=== PATIENT | female | born 1945 | race Caucasian/White ===

== ENCOUNTER 2016-05-28 19:42 | Emergency (ER) | payer MEDICARE, MEDICAID ==
[~2016-05-28] VITALS: Ht 162.6 cm; Wt 40.0 kg
[~2016-05-28 19:42] MED LIST: ASPIRIN EC325 MG PO; ATORVASTATIN CA40 MG PO; DOXYCYCL HYC100 M4 PO; FLEXERIL PO; NO HOME MEDS; ULTRAM50 M1 PO
[2016-05-28] MEDS ORDERED: FLEXERIL PO (20:26)
[2016-05-28] MEDS ORDERED: LORTAB 10-325 M1 TAB PO (20:26)
[2016-05-28 20:50] VITALS: BP 132/52
[2016-05-28] MEDS ORDERED: WELLBUTRIN SR150 MG PO (21:19)
[2016-05-28] MEDS ORDERED: STIOLTO RESPIMA1 AER IN (21:19)
== END 2016-05-28 20:50 | disposition home or self-care (01) ==
LOC: ED 19:42
DX: S16.1XXA Strain of muscle, fascia and tendon at neck level, initial encounter (principal); S33.5XXA Sprain of ligaments of lumbar spine, initial encounter; X58.XXXA Exposure to other specified factors, initial encounter

== ENCOUNTER 2017-03-04 18:27 | Emergency (ER) | payer MEDICARE, MEDICAID ==
[~2017-03-04] VITALS: Ht 162.6 cm; Wt 50.0 kg
[~2017-03-04 18:27] MED LIST changes: +LORTAB 10-325 M1 TAB PO; +STIOLTO RESPIMA1 AER IN; +WELLBUTRIN SR150 MG PO
[2017-03-04 18:33] VITALS: BP 108/67
== END 2017-03-04 19:32 | disposition left against medical advice (07) ==
LOC: ED 18:27 → LWOBS 19:32
DX: Z91.19 Patient's noncompliance with other medical treatment and regimen (principal)

== ENCOUNTER 2017-04-23 09:42 | Day surgery (SDC) | payer MEDICARE, MEDICAID ==
[~2017-04-23] VITALS: Ht 162.6 cm; Wt 47.6 kg
[~2017-04-23 09:42] MED LIST changes: +ALENDRONATE70 MG PO; +ASPIRIN 81 LOW81 MG PO; +BRIMONIDINE0.2 % OD; +BUSPIRONE5 MG PO; +OMEGA 31000 MG PO; +PROAIR HFA108 MCG/AC; +SERTRALINE100 MG PO; +STIOLTO RESPIMA1 AER; +TRAMADOL HYDROC50 MG PO; +VALIUM2 MG PO; +VITAMIN B 12100 MCG PO; +VITAMIN C1000 MG PO
[2017-04-23 12:35] VITALS: BP 119/57
== END 2017-04-23 12:50 | disposition home or self-care (01) ==
LOC: ENDO 09:42 → ORM 12:00 → ENDO 12:00 → ORM 13:45 → ENDO 13:45 → ORM 14:00
PROVIDERS: ATTEND Internal Medicine Gastroenterology
PROC: 0DBE8ZX Excision of Large Intestine, Via Natural or Artificial Opening Endoscopic, Diagnostic (ICD-10-PCS; principal; 2017-04-23)
DX: K52.831 Collagenous colitis (principal); K64.4 Residual hemorrhoidal skin tags; K64.8 Other hemorrhoids; K57.30 Diverticulosis of large intestine without perforation or abscess without bleeding; K55.20 Angiodysplasia of colon without hemorrhage; J44.9 Chronic obstructive pulmonary disease, unspecified; F32.9 Major depressive disorder, single episode, unspecified; Z86.73 Personal history of transient ischemic attack (TIA), and cerebral infarction without residual deficits

== ENCOUNTER 2017-07-26 16:00 | Emergency (ER) | payer MEDICARE, MEDICAID ==
[~2017-07-26] VITALS: Ht 162.6 cm; Wt 46.0 kg
[~2017-07-26 16:00] MED LIST changes: +BACTRIM DS1 TAB PO; +BACTROBAN TOP; +DOXYCYCLINE100 MG PO
[2017-07-26 16:43] VITALS: BP 107/66
== END 2017-07-26 16:43 | disposition home or self-care (01) ==
LOC: ED 16:00
DX: S51.812D Laceration without foreign body of left forearm, subsequent encounter (principal)

== ENCOUNTER 2018-04-29 14:24 | Emergency (ER) | payer MEDICARE, MEDICAID ==
[~2018-04-29] VITALS: Ht 162.6 cm; Wt 50.0 kg
[2018-04-29 15:43] LABS: BARBITURATES NEGATIVE (NEGATIVE); COCAINE NEGATIVE (NEGATIVE); METHADONE NEGATIVE (NEGATIVE); OXCYCODONE NEGATIVE (NEGATIVE); TETRAHYDROCANNABIONOL NEGATIVE (NEGATIVE); TRICYLIC ANTIDEPRESSANTS NEGATIVE (NEGATIVE)
== END 2018-04-29 16:42 | disposition home or self-care (01) ==
LOC: ED 14:24
PROVIDERS: Emergency Medicine
DX: F10.129 Alcohol abuse with intoxication, unspecified (principal); S00.93XA Contusion of unspecified part of head, initial encounter; I65.21 Occlusion and stenosis of right carotid artery; H54.61 Unqualified visual loss, right eye, normal vision left eye; F17.210 Nicotine dependence, cigarettes, uncomplicated; W19.XXXA Unspecified fall, initial encounter; Y92.009 Unspecified place in unspecified non-institutional (private) residence as the place of occurrence of the external cause; Z86.73 Personal history of transient ischemic attack (TIA), and cerebral infarction without residual deficits

== ENCOUNTER 2019-09-07 10:26 | Emergency (ER) | payer MEDICARE, MEDICAID ==
[~2019-09-07] VITALS: Ht 162.6 cm; Wt 45.0 kg
[2019-09-07 11:23] LABS: URINE BILIRUBIN - DIPSTICK NEGATIVE (NEGATIVE); URINE BLOOD DIPSTICK NEGATIVE (NEGATIVE); URINE COLOR YELLOW; URINE GLUCOSE - DIPSTICK NEGATIVE (NEGATIVE); URINE KETONE NEGATIVE (NEGATIVE); URINE NITRITE - DIPSTICK NEGATIVE (Negative); URINE PH 6.5 (4.5-8.0); URINE PROTEIN - DIPSTICK NEGATIVE (NEG-TRACE); URINE UROBILINOGEN - DIPSTICK 0.2 E.U./dL (0.2)
[2019-09-07 11:24] LABS: HEMATOCRIT 38.8 % (37.0-47.0); HEMOGLOBIN 12.9 g/dl (12.0-16.0); IMMATURE GRANULOCYTES 0.2 % (0.0-5.0); MEAN CELL VOLUME 98.2 fL CALC (80.0-100.0); MEAN CORPUSCULAR HGB 32.7 pG CALC (26.0-32.0); MEAN CORPUSCULAR HGB CONC 33.2 g/dL CAL (32.0-36.0); NEUT# 5.49 thou/uL (2.00-7.15); RED BLOOD COUNT 3.95 mill/uL (4.20-5.60); RED CELL DISTRI WIDTH 12.8 % (11.5-15.5)
[2019-09-07 11:35] LABS: URINE LEUK ESTERASE SMALL (NEGATIVE)
[2019-09-07 11:39] LABS: ALBUMIN 4.2 g/dL (3.2-5.0); ALKALINE PHOSPHATASE 100 u/l (38-126); ANION GAP 16 (6-22 (CALC)); BILIRUBIN, TOTAL 0.3 mg/dL (0.0-1.4); BUN 9 mg/dL (8-23); BUN/CREATININE RATIO 14 (12-20 (CALC)); CARBON DIOXIDE 21 mmol/l (22-30); CHLORIDE 101 mmol/l (95-108); CREATININE 0.7 mg/dL (0.5-1.0); GFR > 60 ML/MIN (>=60 (CALC)); GFR FOR AFR.AMER. > 60 ML/MIN (>=60 (CALC)); SGOT/AST 26 u/l (9-36); SODIUM 135 mmol/l (137-146)
[2019-09-07 11:40] LABS: POTASSIUM 3.2 mmol/l (3.5-5.1)
[2019-09-07 12:05] LABS: URINE BACTERIA RARE hpf; URINE SQUAMOUS EPITHELIAL CELL FEW EPI/hpf (0-FEW)
[2019-09-07] MEDS ORDERED: K-TAB20 MEQ PO (12:35)
[2019-09-07] MEDS ORDERED: NITROFURANTN100 M2 PO (12:35)
[2019-09-07 12:50] VITALS: BP 102/54
== END 2019-09-07 12:55 | disposition home or self-care (01) ==
LOC: ED 10:26
PROVIDERS: Family Medicine
DX: R56.9 Unspecified convulsions (principal); E87.6 Hypokalemia; N39.0 Urinary tract infection, site not specified; H54.61 Unqualified visual loss, right eye, normal vision left eye; F17.210 Nicotine dependence, cigarettes, uncomplicated; Z86.73 Personal history of transient ischemic attack (TIA), and cerebral infarction without residual deficits

== ENCOUNTER 2020-04-05 14:14 | Emergency (ER) | payer MEDICARE, MEDICAID ==
[~2020-04-05] VITALS: Ht 162.6 cm; Wt 44.5 kg
[~2020-04-05 14:14] MED LIST changes: +K-TAB20 MEQ PO; +NITROFURANTN100 M2 PO; -PROAIR HFA108 MCG/AC; +PROAIR HFA108 MCG/AC IN; -STIOLTO RESPIMA1 AER
[2020-04-05 15:15] LABS: GFR > 60 ML/MIN (>=60 (CALC)); GFR FOR AFR.AMER. > 60 ML/MIN (>=60 (CALC))
[2020-04-05 15:17] LABS: HEMOGLOBIN 12.4 g/dl (12.0-16.0); IMMATURE GRANULOCYTES 0.6 % (0.0-5.0); MEAN CELL VOLUME 98.4 fL CALC (80.0-100.0); MEAN CORPUSCULAR HGB CONC 33.5 g/dL CAL (32.0-36.0); NEUT# 5.71 thou/uL (2.00-7.15); RED BLOOD COUNT 3.76 mill/uL (4.20-5.60); RED CELL DISTRI WIDTH 12.5 % (11.5-15.5)
[2020-04-05 15:32] LABS: ANION GAP 12 (6-22 (CALC)); BUN 12 mg/dL (8-23); BUN/CREATININE RATIO 15 (12-20 (CALC)); CARBON DIOXIDE 23 mmol/l (22-30); CHLORIDE 97 mmol/l (95-108); CREATININE 0.8 mg/dL (0.5-1.0); GFR > 60 ML/MIN (>=60 (CALC)); GFR FOR AFR.AMER. > 60 ML/MIN (>=60 (CALC)); POTASSIUM 3.9 mmol/l (3.5-5.1); SODIUM 128 mmol/l (137-146)
[2020-04-05 16:53] VITALS: BP 146/66
[2020-04-05] MEDS ORDERED: DOXYCYCL HYC100 M4 PO (17:42)
== END 2020-04-05 18:00 | disposition left against medical advice (07) ==
LOC: ED 14:14
PROVIDERS: Family Medicine
DX: I70.234 Atherosclerosis of native arteries of right leg with ulceration of heel and midfoot (principal); I70.235 Atherosclerosis of native arteries of right leg with ulceration of other part of foot; L97.519 Non-pressure chronic ulcer of other part of right foot with unspecified severity; L97.419 Non-pressure chronic ulcer of right heel and midfoot with unspecified severity; L03.115 Cellulitis of right lower limb; I70.202 Unspecified atherosclerosis of native arteries of extremities, left leg; H54.61 Unqualified visual loss, right eye, normal vision left eye; F17.200 Nicotine dependence, unspecified, uncomplicated; Z86.73 Personal history of transient ischemic attack (TIA), and cerebral infarction without residual deficits; Z91.19 Patient's noncompliance with other medical treatment and regimen

== ENCOUNTER 2020-04-25 11:13 | Inpatient (IN) | payer MEDICARE, MEDICAID ==
[~2020-04-25] VITALS: Ht 162.6 cm; Wt 40.0 kg
[2020-04-25 12:00] VITALS: BP 124/58
--- NOTE | 2020-04-25 12:45 | NUR ---
PT BROUGHT TO ROOM 2 PER W/C BY SON, PT ALERT/ORIENTED X3, WAS PUSHED TO ROOM FROM AMA WITH OXYGEN AT 4 LITRE PER N/C. PT GOT UP ON OWN AND TRANSFERRED TO BED. IS COLD AND REMAINS COLD ALL THE TIME. NOTICEABLE BRUISING TO EMANUEL UP LEGS /THIGHS/HIPS AND LOWER ABDOMEN, PT STATES HAD STENTS IN BECAUSE OF POOR CIRCULATION 3 DAYS AGO. PLACED PULSE OX OF PTS FINGER AND UNABLE TO OBTAIN A GOOD WAVE, PLACED PULSE OX ACROSS FOREHEAD AND PT HAS 100% ON 4 LITRES. PT STATES SHE IS A 2 PACK A DAY SMOKER AND DRINKS AT LEAST A COUPLE OF BEERS A DAY. ALREADY HAD FIRST COVID SHOT AND WAS SCHEDULED TO GET 2ND SHOT TODAY BUT DID NOT RECEIVE IT. DENIES ANY NEW SOB, OR COUGHING. HAS BEEN SEEN BY DR. DAWSON FOR INFECTION TO RIGHT FOOT, WAS STARTED ON ANTIBIOTICS , PICTURES TAKEN OF FOOT, HAS HEEL SORE AND SORE TO LATERAL SIDE OF RIGHT FOOT, AND AT THE TIP OF SEVERAL TOES. NO DRAINAGE NOTICED. APROX QUARTER SIZE AREAS. PLACED PT ON MONITER, AND EKG AND BLOOD GAS OBTAINED.
[2020-04-25 12:47] LABS: IMMATURE GRANULOCYTES 1.4 % (0.0-5.0); MEAN CELL VOLUME 95.5 fL CALC (80.0-100.0); MEAN CORPUSCULAR HGB 32.2 pG CALC (26.0-32.0); MEAN CORPUSCULAR HGB CONC 33.7 g/dL CAL (32.0-36.0); NEUT# 15.19 thou/uL (2.00-7.15); RED BLOOD COUNT 2.89 mill/uL (4.20-5.60); RED CELL DISTRI WIDTH 12.3 % (11.5-15.5)
--- NOTE | 2020-04-25 12:50 | NUR ---
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
[2020-04-25 12:53] LABS: HEMATOCRIT 27.6 % (37.0-47.0); HEMOGLOBIN 9.3 g/dl (12.0-16.0)
--- NOTE | 2020-04-25 13:25 | NUR ---
PT RESTING QUIETLY ON BED, SEVERAL BLANKETS GIVEN PER REQUEST.
--- NOTE | 2020-04-25 13:52 | NUR ---
ULTRA SOUND HERE FOR TEST. PT ALERT/ORIENTED AND COOPERATIVE.
[2020-04-25 14:00] VITALS: BP 119/65
--- NOTE | 2020-04-25 14:39 | NUR ---
SEE CHART FOR PHOTOS OF FOOT
--- NOTE | 2020-04-25 15:32 | NUR ---
PT SLEEPING AT THIS TIME, NO COMPLAINTS, NO LABORED RESP. SATS REMAIN 100% ON 2 LITRES N/C, CALL LIGHT WITHIN REACH. SIDE RAILS UP.
--- NOTE | 2020-04-25 15:46 | NUR ---
SPOKE WITH PTS DAUGHTER ON THE PHONE , WHO STATES THAT PT HAD APPROX 3 STROKES ABOUT 5 YEARS AGO BACK TO BACK THAT AFFECTED HER RIGHT SIDE MOSTLY HER RIGHT EYE WHICH BECAME BLIND AFTER THE 3RD STROKE. STATES PT IS ON O2 AT HOME 2 L/NC FOR COPD, AND THAT SHE HAD STENTS PLACED ON WEDNESDAY FOR BLOCKAGES IN EMANUEL LEGS. DAUGHTER DENIES THAT PT HAS DEMENTIA OR ANY MENTAL COMPLAINTS BESIDES ANXIETY AND DEPRESSION.
[2020-04-25 16:38] LABS: ALKALINE PHOSPHATASE 119 u/l (38-126); ANION GAP 11 (6-22 (CALC)); BUN 13 mg/dL (8-23); BUN/CREATININE RATIO 24 (12-20 (CALC)); CARBON DIOXIDE 22 mmol/l (22-30); CHLORIDE 97 mmol/l (95-108); CREATININE 0.5 mg/dL (0.5-1.0); GFR > 60 ML/MIN (>=60 (CALC)); GFR FOR AFR.AMER. > 60 ML/MIN (>=60 (CALC)); POTASSIUM 4.3 mmol/l (3.5-5.1); SGOT/AST 34 u/l (9-36); SODIUM 126 mmol/l (137-146); TOTAL PROTEIN 5.9 g/dL (6.3-8.2)
[2020-04-25 16:44] LABS: ALBUMIN 3.3 g/dL (3.2-5.0); BILIRUBIN, TOTAL 0.7 mg/dL (0.0-1.4)
--- NOTE | 2020-04-25 16:53 | NUR ---
UP TO BEDSIDE COMMODE, PT PLACED BACK IN BED WITH TWO MORE WARM BLANKETS GIVEN PER REQUEST
--- NOTE | 2020-04-25 18:22 | NUR ---
PT SITTING UP IN BED EATING DINNER TRAY, STATES SHE WANTS A CIGARETTE AND A COUPLE OF BEERS.
[2020-04-25 18:26] VITALS: BP 116/50
--- NOTE | 2020-04-25 18:28 | NUR ---
LEONORA NOTIFIED THAT PT NEEDS A NICOTINE PATCH ORDERED.
[2020-04-25 19:00] VITALS: BP 116/50
--- NOTE | 2020-04-25 19:22 | NUR ---
REPORT FROM RENATA PULIDO. ASSUMED PT CARE.
--- NOTE | 2020-04-25 19:50 | NUR ---
PT NOTED RESTING IN BED. ALERT AND ORIENTED X3. NO APPARENT RESPIRATORY DISTRESS NOTED. RESPIRATIONS EVEN AND UNLABORED, O2 SAT 100% ON 2L/M VIA NC. PT STATES SHE IS COLD, WARM BLANKETS PROVIDED AT THIS TIME. PT REQUESTING IV SITE BE REMOVED BECAUSE SHE SLEEPS ON THAT SIDE. EDUCATION PROVIDED ON IMPORTANCE OF HAVING IV SITE AND IF REMOVED IT WOULD NEED TO BE REPLACED. PT VERBALIZED UNDERSTANDING. IV SITE APPEARS HEALTHY, WRAPPED WITH KELIX FOR PT COMFORT. EXTRA PILLOWS PROVIDED. PT HAS NO OTHER CURRENT WANTS OR NEEDS AT THIS TIME. BRUISING NOTED TO BILATERAL THIGHS TO HIPS. MONITORS IN PLACE. DISCUSSED POC. PT VERBALIZED UNDERSTANDING. CALL LIGHT WITHIN REACH. WILL CONTINUE TO MONITOR.
[2020-04-25 20:00] VITALS: BP 106/53
--- NOTE | 2020-04-25 20:00 | NUR ---
RADIOLOGY AT BEDSIDE TO OBTAIN CXR.
--- NOTE | 2020-04-25 21:23 | NUR ---
PT C/O PAIN 9/10 BILATERAL LEGS AND REQUESTS SOMETHING TO HELP HER SLEEP. MEDICATED ORDERED. NO OTHER CURRENT WANTS OR NEEDS. CALL LIGHT WITHIN REACH. WILL CONTINUE TO MONITOR.
[2020-04-25 22:00] VITALS: BP 122/56
--- NOTE | 2020-04-25 23:08 | NUR ---
PT RESTING IN BED WITH EYES CLOSED. PT WAKES EASILY. NO APPARENT RESPIRATORY DISTRESS NOTED. RESPIRATIONS EVEN AND UNLABORED. PT WAKES EASILY, DENIES ANY PAIN OR DISCOMFORT. CALL LIGHT WITHIN REACH. WILL CONTINUE TO MONITOR.
[2020-04-26] VITALS (10 sets, daily range): BP systolic 91–139; BP diastolic 49–73
--- NOTE | 2020-04-26 01:29 | NUR ---
PT RESTING IN BED WITH EYES CLOSED. NO APPARENT DISTRESS NOTED. RESPIRATIONS EVEN AND UNLABORED. MONITORS IN PLACE. CALL LIGHT WITHIN REACH. WILL CONTINUE TO MONITOR.
--- NOTE | 2020-04-26 03:39 | NUR ---
PT RESTING IN BED WITH EYES CLOSED. NO APPARENT DISTRESS NOTED. RESPIRATIONS EVEN AND UNLABORED. MONITORS IN PLACE. VSS. PT REMAINS ON 2L/M VIA NC @ 100%. CALL LIGHT WITHIN REACH. WILL CONTINUE TO MONITOR.
--- NOTE | 2020-04-26 06:35 | NUR ---
RT RECIEVED IN REPORT THAT PT RESTED COMFORTABLY HS. PT ON NASAL CANNULA. VSS. NAD.
--- NOTE | 2020-04-26 07:33 | NUR ---
pt resting in bed with eyes closed; easily aroused; pt offers no complaints; assessment completed at this time; pt alert and oriented; denies pain; no n/v noted; resp even and unlabored; lungs coarse with exp wheeze; skin color wnl; o2 per nc at 2L; ammunition components inspector cough noted; hr reg; weak pedal pulses; no edema noted; sr on monitor; abd soft with bs present; no bm noted per chief underwriter; pt admits to voiding without complication; no urine to inspect at this time; bsc; #20 intact to lac; no redness or edema noted at site; bruising noted to bilat groin, lower waist; bandaids noted to bilat groin (s/p stent placement); plan of care/ am meds explained; call light within reach; will continue to monitor
--- NOTE | 2020-04-26 08:09 | NUR ---
sitting on the side of bed; no apparent distress noted; o2 per nc; call light within reach; will contiune to monitor
--- NOTE | 2020-04-26 08:28 | NUR ---
Dr Godwin present at bedside to assess pt and discuss plan of care; staff attempted doppler pedal pulses and unable to obtain; MD at bedside and aware; will continue to monitor
--- NOTE | 2020-04-26 09:00 | NUR ---
am meds explained and administered; eye drops from home unavailable; resume writer request for pt to have someone bring them in; pt states she will be going home later today;
--- NOTE | 2020-04-26 10:09 | NUR ---
pt transferred to ultrasound via wc with portable o2 in stable condition;
--- NOTE | 2020-04-26 10:17 | NUR ---
cecelia Alva called this headline writer; son unable to provide passcode; son states "I have POA, the registration know this, ER know this"; HIPPA right attempted to be explained; son request to speak with pt; informed pt was havnig a procedure and unable to speak at this time; son inquiring of procedure; son Artie states "I'll just call the Dr and have hime deal with y'all"; call ended per son
--- NOTE | 2020-04-26 10:58 | NUR ---
pt returned to unit via wc with portable o2 in stable condition; assisted back to bed; monitoring attachments reapplied
--- NOTE | 2020-04-26 11:16 | NUR ---
son called this television script writer; passcode verified; update provided including plans of discharge; television script writer to call MD in regards to son concerns of pt being discharged with wounds to feet, feet looking "like gangrene"; will continue to monitor
--- NOTE | 2020-04-26 11:56 | NUR ---
Dr Godwin called per this commercial underwriter in regards to son Artie's concerns of wounds on foot, decreased apetite and feet appearing "gangrene"; orders received to hold on discharge; pt to be transferred to med surg; will continue to monitor
--- NOTE | 2020-04-26 12:10 | NUR ---
awake sitting on the side of bed eating lunch; no apparent distress noted; pt offers no complaints; iv intact; sr on monitor; o2 per nc; call light within reach; will continue to monitor
--- NOTE | 2020-04-26 14:00 | NUR ---
awake in bed; offers no complaints; update provided on discharge hold and transfer to med surg; iv intact; sr on monitor; o2 per nc; will continue to monitor
--- NOTE | 2020-04-26 14:07 | NUR ---
return called placed to Artie (son); no answer; message left to return call
--- NOTE | 2020-04-26 14:25 | NUR ---
call received from son Artie; updated on plan of care including holding discharge; Artie admits that pt has only ate enough food to fit in the etta of his hand over the past 5 days; also admit they (family) have been treating foot wounds for 5 weeks without improvement; visitation restrictions explained; son informed pt will transfer to med surg 267 this evening; will continue to monitor
--- NOTE | 2020-04-26 14:47 | NUR ---
report provided to TESS Umana; pt to transfer to med surg 267;
--- NOTE | 2020-04-26 15:11 | NUR ---
Dr Godwin notified of ultrasound results; order to continue with transfer to [facility] surg
--- NOTE | 2020-04-26 15:20 | NUR ---
pt transferred to med surg room 267 via wc with portable o2 in stable condition;
--- NOTE | 2020-04-26 15:28 | NUR ---
RECEIVED PATIENT AT THIS TIME FROM ICU. REPORT GIVENT TO THIS NURSE BY HENRY PULIDO. PATEINT ORIENTED TO ROOM AND NEW SURROUNDINGS. PATIENT ALERT AND ORIENTED AT THIS TIME. PATIENT O2 ON AT 2 LITERS AND PULSE OX CABLE ON FOREHEAD AT THIS TIME. PATIENT SHOWN CALL LIGHT AND SAFTEY GUIDELINES GONE OVER WITH PATIENT. SIDERAILS ARE UP CALL LIGHT WITHIN REACH AND PERSONAL ITEMS WITHIN REACH.
--- NOTE | 2020-04-26 15:59 | NUR ---
PATIENT SITTING UP IN BED AT THIS TIME EATING CHICKEN NUGGETS AND [place] F[place]ES FROM [place]. PATIENT STATED SHE HAS GROIN PAIN AND IT IS A 5 ON THE PAIN SCALE OF 0-10. PATIENT GIVEN 650MG OF TYLENOL AT THIS TIME. SIDERAIL ARE UP CALL LIGHT IS WITHIN REACH. PATIENT DAVID ANY OTHER NEEDS AT THIS TIME.
[2020-04-27] VITALS (8 sets, daily range): BP systolic 95–112; BP diastolic 45–64
--- NOTE | 2020-04-27 05:06 | NUR ---
PATIENT IS ALERT AND ORIENTED, ABLE TO MAKE NEEDS KNOWN. RESPIRATIONS EASY ON 2L VIA N/C. LUNG SOUNDS COURSE WITH EXPIRATORY WHEEZING. C/O PAIN TO GROIN AREA FROM PAST STENT PLACEMENTS. TYLENOL PO GIVEN WITH SOME EFFECT. WARM COMPRESS APPLIED. BED IN LOW POSITION. CALL LIGHT WITHIN REACH.
[2020-04-27 05:15] LABS: MEAN CELL VOLUME 97.2 fL CALC (80.0-100.0); MEAN CORPUSCULAR HGB 32.2 pG CALC (26.0-32.0); MEAN CORPUSCULAR HGB CONC 33.2 g/dL CAL (32.0-36.0); NEUT# 6.85 thou/uL (2.00-7.15); RED BLOOD COUNT 2.14 mill/uL (4.20-5.60); RED CELL DISTRI WIDTH 12.5 % (11.5-15.5)
[2020-04-27 05:31] LABS: ANION GAP 8 (6-22 (CALC)); BUN 12 mg/dL (8-23); BUN/CREATININE RATIO 21 (12-20 (CALC)); CARBON DIOXIDE 25 mmol/l (22-30); CHLORIDE 97 mmol/l (95-108); CREATININE 0.6 mg/dL (0.5-1.0); GFR > 60 ML/MIN (>=60 (CALC)); GFR FOR AFR.AMER. > 60 ML/MIN (>=60 (CALC)); POTASSIUM 3.6 mmol/l (3.5-5.1); SODIUM 126 mmol/l (137-146)
[2020-04-27 05:32] LABS: HEMATOCRIT 20.8 % (37.0-47.0)
[2020-04-27 05:33] LABS: HEMOGLOBIN 6.9 g/dl (12.0-16.0)
--- NOTE | 2020-04-27 07:15 | NUR ---
PATIENT RESTING IN BED AT THIS TIME. PATIENT STATES HER PAIN LEVEL AT THIS TIME IS A "3" OUT OF 0-10 IN HER GROIN. PATIENT IS ALERT AND ORIENTED X3 PATIENT LUNG TERESA ARE COARSE AND DIMINISHED AT THIS TIME. PATIENT LEFT FOOT STILL EXIBITS SCAR TISSUE THAT IS DRY AND NO DRAINING TOP FLAVOR ATTENDANT DONE SEE INTERVENTIONS. PATIENT IS O2 AT THIS TIME AT 2 LITERS AND IS SPO2 AT 97%. CALL LIGHT AND PERSONAL ITEMS ARE WITHIN REACH SIDERAILS UP X 2
--- NOTE | 2020-04-27 08:45 | NUR ---
CONSENT OBTAINED FROM PATIENT TO GIVE ONE UNIT OF PACKED RED BLOOD CELLS.
--- NOTE | 2020-04-27 09:39 | NUR ---
BLOOD TRANSFUSION STARTED AT THIS TIME. TEMP. 97.2 RESPIRATONS 18 AND B/P 110/54. PATIENT DENIES ANY PAIN PATIENT WILL CONTINUE TO BE MONITORED AT THIS TIME.
--- NOTE | 2020-04-27 09:55 | NUR ---
VITAL SIGNS TAKEN AT THIS TIME AFTER 15 MINUTES OF TRANSFUSION. T. 97.1 P. 86 R. 18 BP 112/62. PATIENT STATES SHE HAS NO PAIN OR SHORTNESS OF BREATH AT THIS TIME. PATIENT EDUCATED ON BLOOD TRANSFUSION REACTION AT THIS TIME AND ADVISED PATIENT TO CALL OUT TO NURSE IF SHE WOULD BECOME SHORT OF BREATH OR HAVING ANY PAIN. PATIENT VERBALIZED UNDERSTANDING OF IMPORTANCE OF CALLING NURSE.
--- NOTE | 2020-04-27 10:49 | NUR ---
PATIENT RESTING IN BED BLOOD STILL TRANSFUSING DENEIS ANY PAIN OR SHORTNESS OF BREATH AT THIS TIME VITALS SIGNS ARE FOLLOWS: T. 97.0 P. 82 R. 18 BP 110/60. PATIENT WILL CONTINUE TO BE MONITORED.
--- NOTE | 2020-04-27 11:48 | NUR ---
BLOOD TRANSFUSION OF ONE UNITI OF PACKED RED BLOOD CELLS ENDED AT THIS TIME. VS ARE FOLLOWS; T. 97.0 P.82 R. 18 BP 110/64. PATIENT DENIES ANY PAIN ON SHORTNESS OF BREATH AT THIS TIME. SIDERAILS UP CALL LIGHT WITHIN REACH.
--- NOTE | 2020-04-27 12:03 | NUR ---
PATIENT SITTING UP ON BEDSIDE EATING LUNCH AT THIS TIME DENIES ANY PAIN ON NEEDS CURRENTLY. SIDERAILS UP X2 CALL LIGHT AND PERSONAL ITEMS WITHIN REACH.
--- NOTE | 2020-04-27 15:00 | NUR ---
PATIENT C/O RIGHT FOOT "ZINGERING" AT THIS TIME. RIGHT FOOT HAS MULTIPLE SPOTS OF DRIED SCAR AREAS ON HEAL, GREAT TOE AND THE SIDE OF THE PINKY TOE. THESE WERE PRESENT ON ADMISSION. PHOTOS TAKEN AT THIS TIME AND HEAL PROTECTORS APPLIED.
--- NOTE | 2020-04-27 16:10 | NUR ---
PATIENT SITTING UP IN BED AT THIS TIME. PATIENT DENIES ANY NEEDS AND OR PAIN. PATIENT SIDERAILS ARE UP X 2 AND CALL LIGHT AND PERSONAL ITEMS ARE WITHIN REACH. PATIENT DENIES HAVING TO GO TO THE BATHROOM AT THIS TIME.
--- NOTE | 2020-04-27 17:28 | NUR ---
SPOKE TO PATIENT'S SON AT THIS TIME PER PATIENTS REQUEST. PATIENT SON DROPPED OFF A BAG OF PERSONAL ITEMS TO INCLUDE SNACKS AND A NOTED STATING "IT IS NOW DAY 7 WITH LESS THAN 600 CALORIES A DAY AND NO FIBER". I SPOKE TO SON AND TOLD HIM THAT PATIENT HAS BEEN EATING AND THAT ON 04/26/20 SHE ATE CHICKEN MCNUGGETS AND PERSIAN FRIES I ALSO ADVISED SON SHE DID EAT SOME OF HER MEALS TODAY. PATIENT SON ALSO STATE ON THE NOTE "SHE HAS SORES BREAKING OUT IN HER MOUTH" IT WAS EXPLAINED TO SON THAT SHE STATES SHE HAD A TENDER SPOT ON HER GUM AND SHE WAS GIVEN A DENTAL CUP AND SHE SAID "NO" I SLEEP IN MY DENTURES. SON DID BRING IN THE EYE DROPS THAT HAVE BEEN REQUESTED SINCE 04/25/20. SON WANTED ME TO GIVE THEM TO PATIENT TO START USING AND I EXPLAINED THEY WOULD NEED TO GO TO PHARMACY AND BE PROFILED TO BE USE AND WE WILL START THEM IN THE AM. SON BECAME BILIGERANT AND THREATING TO [facility] BECAUSE WE HAVE NOT BEEN TAKING OF HIS MOTHER. SON CONTINUED TO YELL ON PHONE AND BECOME ARGUMENTED AND THIS NURSE POLITELY STOP THE CONVERSATION AT THIS TIME. PERSONAL BELONGING WILL BE GIVNE TO PATIENT.
--- NOTE | 2020-04-27 17:56 | NUR ---
PT'S SON FOUND THE BOXES TO THE EYE DROPS AT HOME, INQUIRED IF WE CAN USE THEM NOW. EXPLAINED THEY ARE READY FOR THE PHARMACIST IN THE AM. STATED" I AM SHEILDING 34CALLS FROM FAMILY MEMBERS". INQUIRED WHAT BROUGHT PT IN. AND EXPLAINED TO HIM THAT IS WHAT WE ARE CHECKING ON HER FOR. THEN THE SURGEON WILL COME IN AND FIND OUT WHAT IS GOING ON. VERBALIZED UNDERSTANDING,
--- NOTE | 2020-04-27 18:09 | NUR ---
EXPLAINED TO PATIENT ABOUT SON'S PHONE CALL AND PATIENT STATED "MY SON IS A ASSHOLE AND CAN YOU SEE WHY I HAVE TO DRINK LIVING WITH HIM" "HE THINKS HE KNOWS EVERYTHING". ASSURED PATIENT THAT HER EYE DROPS WILL START IN THE AM AND SHE STATED SHE IS FINE WITH THAT AND IS NOT HAVING ANY ISSUES AT THIS TIME WITH HER SITE. PATIENT IS SITTING AT BEDSIDE EATING DINNER AND DENIES ANY NEEDS.
[2020-04-27 21:23] LABS: HEMATOCRIT 25.5 % (37.0-47.0); HEMOGLOBIN 8.7 g/dl (12.0-16.0)
[2020-04-28 04:37] VITALS: BP 128/62
[2020-04-28 05:50] LABS: HEMATOCRIT 25.5 % (37.0-47.0); HEMOGLOBIN 8.3 g/dl (12.0-16.0); MEAN CELL VOLUME 94.8 fL CALC (80.0-100.0); MEAN CORPUSCULAR HGB 30.9 pG CALC (26.0-32.0); MEAN CORPUSCULAR HGB CONC 32.5 g/dL CAL (32.0-36.0); RED BLOOD COUNT 2.69 mill/uL (4.20-5.60); RED CELL DISTRI WIDTH 13.6 % (11.5-15.5)
[2020-04-28 06:01] LABS: ANION GAP 8 (6-22 (CALC)); BUN 21 mg/dL (8-23); BUN/CREATININE RATIO 35 (12-20 (CALC)); CARBON DIOXIDE 28 mmol/l (22-30); CHLORIDE 94 mmol/l (95-108); CREATININE 0.6 mg/dL (0.5-1.0); GFR > 60 ML/MIN (>=60 (CALC)); GFR FOR AFR.AMER. > 60 ML/MIN (>=60 (CALC)); MAGNESIUM 1.2 mg/dL (1.6-2.3); SODIUM 126 mmol/l (137-146)
[2020-04-28 07:15] VITALS: BP 124/67
--- NOTE | 2020-04-28 07:15 | NUR ---
PATIENT RESTING IN BED AT THIS TIME. LUNG ASSESMENT DONE AND REMAIN COARSE AND DIMINISHED IN LOWER LOBES. O2 REMAINS ON AT 2L AND SPO2 IS 100%. TELE MONITOR ON AND MONITORED BY ED AT THIS TIME. PATIENT STATES DOES HAVE PAIN IN R FOOT AND STATES IT IS A "3" OUT OF 0-10 . RIGHT FOOT HAS SCAR ON TOE AND HEAL AND SIDE OF PINKY THAT IS UNCHANGES SINCE ADMISSION. BILATERAL FEET PLACED IN HEAL PROTECTORS AT THIS TIME. RN ASSESSEMENT DONE SEE INTERVENTIONS, SIDERAILS ARE UP CALL LIGHT AND PERSONAL ITEMS WITHIN REACH.
[2020-04-28 10:40] VITALS: BP 102/52
--- NOTE | 2020-04-28 12:00 | NUR ---
PATIENT SITTING UP IN BED AT THIS TIME EATING LUNCH. STATES HER PAIN IN "0" SIDERAILS ARE UP X 2 CALL LIGHT AND PERSONAL ITEMS WITHIN REACH.
--- NOTE | 2020-04-28 14:56 | NUR ---
CALLED SON AND LEFT MESSAGE FOR HIS TO CALL THIS NURSE SOON POSSIBLE FOR PATIENT HOME MEDICATION. THE INHALER THE SON DROPPED OFF ON 04/27/20 HAD ONLY ONE DOSE LEFT AND THAT DOES WAS GIVEN TO PATIENT THIS AM. MEDICATION THAT IS NEEDED IS STIOLTO
[2020-04-28 15:00] VITALS: BP 98/60
--- NOTE | 2020-04-28 15:00 | NUR ---
PATIENT SON CALLED BACK REGARDING MEDICATION NEEDED AND STATED HE WILL BRING MEDICATION IN THE AM. PATIENT'S SON THEN ASKED IF VISITATIONS WAS ALLOWED AND AGAIN IT WAS EXPLAINED AT THIS TIME VISITATION AT THIS TIME WAS NOT OPENED. SON THEN BECAME LOUD AND STATED "WELL DO YOU HAVE A NOTARY THERE" I STATED HE WOULD HAVE TO CONTACT THE BUSINESS OFFICE IN THE MORNING. HE BECAME ANGRY AND STATED WELL "IF YOU NOT GOING TO LET ME COME UP THERE I NEED A PAPER SIGNED IN FRONT OF AN NOTARY THAT SHOULD HAVE BEEN DONE ON WEDNESDAY". AGAIN I EXPLAINED TO SON TO CONTACT BUSINESS OFFICE IN AM THE SON THEN HUNG UP.
--- NOTE | 2020-04-28 15:43 | NUR ---
PATIENT LAYING IN BED AT THIS TIME WATCHING TV. PATIENT STATES SHE FEELS BETTER BUT HER RIGHT FOOT "SOMETIMES IT TINGLES". BILATERAL FEET ARE IN HEAL PROTECTORS. SIDERAILS ARE UP CALL LIGHT AND PERSONAL ITEMS WITHIN REACH.
[2020-04-28 22:52] VITALS: BP 102/51
[2020-04-29 01:20] VITALS: BP 87/53
[2020-04-29 03:34] VITALS: BP 95/57
[2020-04-29 06:12] LABS: HEMATOCRIT 23.6 % (37.0-47.0); HEMOGLOBIN 8.3 g/dl (12.0-16.0); IMMATURE GRANULOCYTES 0.9 % (0.0-5.0); MEAN CELL VOLUME 93.7 fL CALC (80.0-100.0); MEAN CORPUSCULAR HGB 32.9 pG CALC (26.0-32.0); MEAN CORPUSCULAR HGB CONC 35.2 g/dL CAL (32.0-36.0); NEUT# 6.41 thou/uL (2.00-7.15); RED BLOOD COUNT 2.52 mill/uL (4.20-5.60); RED CELL DISTRI WIDTH 13.2 % (11.5-15.5)
[2020-04-29 06:43] LABS: ALKALINE PHOSPHATASE 100 u/l (38-126); ANION GAP 10 (6-22 (CALC)); BILIRUBIN, TOTAL 0.6 mg/dL (0.0-1.4); BUN 20 mg/dL (8-23); BUN/CREATININE RATIO 37 (12-20 (CALC)); CARBON DIOXIDE 29 mmol/l (22-30); CHLORIDE 91 mmol/l (95-108); CREATININE 0.5 mg/dL (0.5-1.0); GFR > 60 ML/MIN (>=60 (CALC)); GFR FOR AFR.AMER. > 60 ML/MIN (>=60 (CALC)); POTASSIUM 4.4 mmol/l (3.5-5.1); SGOT/AST 20 u/l (9-36); SODIUM 124 mmol/l (137-146)
[2020-04-29 06:54] LABS: ALBUMIN 2.2 g/dL (3.2-5.0); TOTAL PROTEIN 4.3 g/dL (6.3-8.2)
--- NOTE | 2020-04-29 07:38 | NUR ---
LATE ENTRY 0100 PATIENT SITTING AT BEDSIDE COMPLAINTS OF RIGHT FOOT DISCOMFORT. TYLENOL ADMINISTERED, PATIENT ASSISTED BACK TO LYING POSITION, FOOT ELEVATED.
[2020-04-29 08:00] VITALS: BP 120/68
--- NOTE | 2020-04-29 08:30 | NUR ---
PATIENT RESTING IN THE BED AXOX3, NOTED PATIENT IS RESTLESS, STATED SHE HAS NOT HAS A SMOKE IN A WHILE. EDUCATED ON NICOTINE PATCH AND VALIUM. [address] BACK INOT BED WITH ASST. NO RESP DISTRESS NOTED. REPOSITIONED FOR COMFORT, SIDE RAILS UP CALL LIGHT IN REACH , BED LOCKED IN LOW POSITION, ALL SAFTY MEASURES IN PLACE. WILL CONTINUE TO MONITOR THE PATIENT.
--- NOTE | 2020-04-29 11:10 | NUR ---
NOTED B/P PT RESTING COMFORTABLE NO PAIN NO ANXIETY,
--- NOTE | 2020-04-29 14:12 | NUR ---
[place] PEÑA DONE. RESULTS GIVEN TO THE PROVIDER.
[2020-04-29 14:50] VITALS: BP 87/40
--- NOTE | 2020-04-29 15:58 | NUR ---
EDUCATED PATIENT ON A UA SAMPLE.
[2020-04-29 16:56] LABS: URINE BILIRUBIN - DIPSTICK NEGATIVE (NEGATIVE); URINE BLOOD DIPSTICK NEGATIVE (NEGATIVE); URINE CLARITY CLEAR; URINE COLOR YELLOW; URINE GLUCOSE - DIPSTICK NEGATIVE (NEGATIVE); URINE KETONE TRACE mg/dL (NEGATIVE); URINE LEUK ESTERASE NEGATIVE (Negative); URINE NITRITE - DIPSTICK NEGATIVE (Negative); URINE PROTEIN - DIPSTICK NEGATIVE (NEG-TRACE); URINE SPECIFIC GRAVITY 1.025; URINE UROBILINOGEN - DIPSTICK 0.2 E.U./dL (0.2)
--- NOTE | 2020-04-29 16:58 | NUR ---
PT HAD A MOD LOSE STOOL. UA SENT TO THE LAB. PT APPEARS TO BE IN NO DISTRESS AT THIS TIME. WILL CONTINUE TO MONIOTR THE PATIENT.
[2020-04-29 19:00] VITALS: BP 93/54
[2020-04-30 04:00] VITALS: BP 96/51
--- NOTE | 2020-04-30 05:09 | NUR ---
PATIENT IS ALERT AND ORIENTED AND ABLE TO MAKE NEEDS KNOWN. RESPIRATIONS EASY ON 2L VIA N/C. HEART RATE REGULAR. BS+4. C/O FOOT PAIN 11/08. SCHEDULED ULTRAM GIVEN WITH POSITIVE EFFECT. GROIN REMAINS BRUISED DUE TO BILATERAL STENT PLACEMENT PRIOR TO ADMISSION. BED IN LOW POSITION. CALL LIGHT WITHIN REACH.
[2020-04-30 06:30] LABS: ALBUMIN 2.3 g/dL (3.2-5.0); BUN 18 mg/dL (8-23); CARBON DIOXIDE 34 mmol/l (22-30); CHLORIDE 88 mmol/l (95-108); CREATININE 0.6 mg/dL (0.5-1.0); GFR > 60 ML/MIN (>=60 (CALC)); GFR FOR AFR.AMER. > 60 ML/MIN (>=60 (CALC)); MAGNESIUM 1.6 mg/dL (1.6-2.3); POTASSIUM 4.6 mmol/l (3.5-5.1); SODIUM 125 mmol/l (137-146)
[2020-04-30 06:46] LABS: HEMATOCRIT 25.3 % (37.0-47.0); HEMOGLOBIN 8.2 g/dl (12.0-16.0); MEAN CELL VOLUME 96.6 fL CALC (80.0-100.0); MEAN CORPUSCULAR HGB 31.3 pG CALC (26.0-32.0); MEAN CORPUSCULAR HGB CONC 32.4 g/dL CAL (32.0-36.0); RED BLOOD COUNT 2.62 mill/uL (4.20-5.60); RED CELL DISTRI WIDTH 13.2 % (11.5-15.5)
[2020-04-30 08:00] VITALS: BP 118/68
--- NOTE | 2020-04-30 08:00 | NUR ---
PT RESTING IN THE BED, SHE IS ALERT, NO RESP DISTRESS NOTED AT THIS TIME. C/O ANXIETY MED PER ORDER. REPOSITIOEND FOR COMFORT, SIDE RAILS UP CALL LIGHT INR EACH BED LOCKED IN LOW POSITION, WILL CONTINUE TO MONITOR THE PATIENT.
[2020-04-30] MEDS ORDERED: PLAVIX75 MG PO (09:59)
[2020-04-30] MEDS ORDERED: PROTONIX40 M2 PO (10:00)
--- NOTE | 2020-04-30 11:23 | NUR ---
PT HAS A DISCHARGE ORDER. HL REMOVED. PT MADE AWARE OF D/C ORDER.
--- NOTE | 2020-04-30 12:24 | NUR ---
PT OWN MEDS GIVEN BACK TO HER. EYE DROPS AND A PUFFER.
--- NOTE | 2020-04-30 13:19 | NUR ---
ANA,S DAUGHTER CAME TO PICK HER UP WITH OUT THE 02 TANK. DAUGHTER IS GOING TO RETURN TO THE HOSPITAL WITH O2.
--- NOTE | 2020-04-30 13:45 | NUR ---
DISCHARGE ORDERS GIVEN UNDERSTOOD AND SIGNED BY THE PT. PT LEFT WITH O2 TO GO TO HER OWN HOME WITH FAMILY MEMBERS.
== END 2020-04-30 13:45 | disposition home health service (06) | DRG 300 ==
LOC: ICU 11:13 → MS2 04-26 15:24
PROVIDERS: Internal Medicine; Internal Medicine Nephrology; Nurse Practitioner; ADMIT Internal Medicine; ATTEND Internal Medicine
PROC: 30233N1 Transfusion of Nonautologous Red Blood Cells into Peripheral Vein, Percutaneous Approach (ICD-10-PCS; principal; 2020-04-27)
DX: E11.51 Type 2 diabetes mellitus with diabetic peripheral angiopathy without gangrene (principal); Z68.1 Body mass index [BMI] 19.9 or less, adult; D62 Acute posthemorrhagic anemia; E22.2 Syndrome of inappropriate secretion of antidiuretic hormone; K92.2 Gastrointestinal hemorrhage, unspecified; L03.115 Cellulitis of right lower limb; R09.02 Hypoxemia; I70.203 Unspecified atherosclerosis of native arteries of extremities, bilateral legs; J44.9 Chronic obstructive pulmonary disease, unspecified; T43.225A Adverse effect of selective serotonin reuptake inhibitors, initial encounter; H40.9 Unspecified glaucoma; R63.6 Underweight; F10.10 Alcohol abuse, uncomplicated; E83.42 Hypomagnesemia; I95.9 Hypotension, unspecified; F32.9 Major depressive disorder, single episode, unspecified; F41.9 Anxiety disorder, unspecified; H54.61 Unqualified visual loss, right eye, normal vision left eye; F17.210 Nicotine dependence, cigarettes, uncomplicated; Z99.81 Dependence on supplemental oxygen; Z91.19 Patient's noncompliance with other medical treatment and regimen; Z86.73 Personal history of transient ischemic attack (TIA), and cerebral infarction without residual deficits; Z95.820 Peripheral vascular angioplasty status with implants and grafts; Z79.82 Long term (current) use of aspirin; Z79.02 Long term (current) use of antithrombotics/antiplatelets; Z20.822 Contact with and (suspected) exposure to COVID-19
CPT/HCPCS: G0328; J3475; P9016; S0164

== ENCOUNTER 2020-05-11 12:04 | Emergency (ER) | payer MEDICARE, MEDICAID ==
[~2020-05-11] VITALS: Ht 162.6 cm; Wt 48.0 kg
[~2020-05-11 12:04] MED LIST changes: +PLAVIX75 MG PO; +PROTONIX40 M2 PO
[2020-05-11 12:10] VITALS: BP 164/77
[2020-05-11 12:39] LABS: HEMATOCRIT 29.8 % (37.0-47.0); HEMOGLOBIN 9.4 g/dl (12.0-16.0); IMMATURE GRANULOCYTES 0.6 % (0.0-5.0); MEAN CORPUSCULAR HGB 31.2 pG CALC (26.0-32.0); MEAN CORPUSCULAR HGB CONC 31.5 g/dL CAL (32.0-36.0); NEUT# 5.12 thou/uL (2.00-7.15); RED BLOOD COUNT 3.01 mill/uL (4.20-5.60); RED CELL DISTRI WIDTH 14.4 % (11.5-15.5)
[2020-05-11 12:54] LABS: ALKALINE PHOSPHATASE 114 u/l (38-126); BILIRUBIN, TOTAL 0.5 mg/dL (0.0-1.4); BUN 13 mg/dL (8-23); BUN/CREATININE RATIO 20 (12-20 (CALC)); CHLORIDE 98 mmol/l (95-108); CREATININE 0.6 mg/dL (0.5-1.0); GFR > 60 ML/MIN (>=60 (CALC)); GFR FOR AFR.AMER. > 60 ML/MIN (>=60 (CALC)); LIPASE 45 u/l (23-300); POTASSIUM 4.1 mmol/l (3.5-5.1); SGOT/AST 30 u/l (9-36); SODIUM 129 mmol/l (137-146)
[2020-05-11 12:56] LABS: ALBUMIN 3.6 g/dL (3.2-5.0); ANION GAP 12 (6-22 (CALC)); CARBON DIOXIDE 23 mmol/l (22-30); TOTAL PROTEIN 6.6 g/dL (6.3-8.2)
[2020-05-11 13:03] LABS: ACT PARTIAL THROMBO TIME 29.2 SECONDS (20.0-32.5); INTERNATIONAL NORMALIZED RATIO 1.1 RATIO (0.7-1.3); PROTHROMBIN TIME 11.6 SECONDS (9.0-12.5)
== END 2020-05-11 16:18 | disposition short-term general hospital (02) ==
LOC: ED 12:04
DX: K92.1 Melena (principal); I73.9 Peripheral vascular disease, unspecified; J44.9 Chronic obstructive pulmonary disease, unspecified; F10.10 Alcohol abuse, uncomplicated; F32.9 Major depressive disorder, single episode, unspecified; F41.9 Anxiety disorder, unspecified; H54.61 Unqualified visual loss, right eye, normal vision left eye; F17.210 Nicotine dependence, cigarettes, uncomplicated; R63.6 Underweight; Z68.1 Body mass index [BMI] 19.9 or less, adult; Z95.820 Peripheral vascular angioplasty status with implants and grafts; Z79.02 Long term (current) use of antithrombotics/antiplatelets; Z79.82 Long term (current) use of aspirin
CPT/HCPCS: J2354; Q9967; S0164

== ENCOUNTER 2020-08-29 09:44 | Observation (INO) | payer MEDICARE, MEDICAID ==
[~2020-08-29] VITALS: Ht 162.6 cm; Wt 38.0 kg
--- NOTE | 2020-08-29 09:50 | NUR ---
TO ROOM FOR TRIAGE
--- NOTE | 2020-08-29 09:55 | NUR ---
POC REVIEWED. CALL MARTINEZ IN REACH
--- NOTE | 2020-08-29 10:00 | NUR ---
REPORT TO ONCOMING RN IN SBAR FORMAT
--- NOTE | 2020-08-29 10:10 | NUR ---
RECEIVED REPORT AND ASSUMED CARE. PATIENT IS AAOX4 LAYING IN BED, DAUGHTER AT [facility]. PATIENTS RESPIRATIONS EVEN AND UNLABORED. NO DISTRESS NOTED. BANDAGE TO RIGHT HEEL AND RIGHT LATERAL FOOT. RIGHT FOOT REDDENED. NO SWELLING. PULSE PALBALE TO RIGHT FOOT, NOT TO LEFT. PLAN REVIEWED, BED LOCKED AND IN LOWEST POSITION, CALL MARTINEZ IN REACH. PATIENT VERBALIZES UNDERSTANDING.
[2020-08-29] MEDS ORDERED: NITROFURANTN100 MG PO (10:18)
[2020-08-29] MEDS ORDERED: B-121000 MCG SL (10:19)
[2020-08-29] MEDS ORDERED: POTASSIUM CHLO20 ME2 PO (10:20)
[2020-08-29] MEDS ORDERED: ASCORBIC ACD1000 MG PO (10:21)
[2020-08-29] MEDS ORDERED: ALENDRONATE SOD70 MG PO (10:21)
[2020-08-29] MEDS ORDERED: PROAIR HFA108 MCG/AC (10:31)
--- NOTE | 2020-08-29 10:45 | NUR ---
AZACTAM INFUSING WITHOUT DIFFICULTY. PATIENT AFEBRILE.
[2020-08-29 10:58] LABS: HEMATOCRIT 36.2 % (37.0-47.0); HEMOGLOBIN 11.5 g/dl (12.0-16.0); IMMATURE GRANULOCYTES 0.4 % (0.0-5.0); MEAN CELL VOLUME 97.8 fL CALC (80.0-100.0); MEAN CORPUSCULAR HGB 31.1 pG CALC (26.0-32.0); MEAN CORPUSCULAR HGB CONC 31.8 g/dL CAL (32.0-36.0); NEUT# 6.71 thou/uL (2.00-7.15); RED BLOOD COUNT 3.7 mill/uL (4.20-5.60); RED CELL DISTRI WIDTH 12.8 % (11.5-15.5)
[2020-08-29 11:05] LABS: ALBUMIN 3.4 g/dL (3.2-5.0); ALKALINE PHOSPHATASE 76 u/l (38-126); BUN 19 mg/dL (8-23); BUN/CREATININE RATIO 28 (12-20 (CALC)); CHLORIDE 108 mmol/l (95-108); CREATININE 0.7 mg/dL (0.5-1.0); GFR > 60 ML/MIN (>=60 (CALC)); GFR FOR AFR.AMER. > 60 ML/MIN (>=60 (CALC)); POTASSIUM 3.6 mmol/l (3.5-5.1); SGOT/AST 19 u/l (9-36); SODIUM 136 mmol/l (137-146); TOTAL PROTEIN 6.5 g/dL (6.3-8.2)
[2020-08-29 11:09] LABS: ANION GAP 14 (6-22 (CALC)); BILIRUBIN, TOTAL 0.1 mg/dL (0.0-1.4); CARBON DIOXIDE 18 mmol/l (22-30)
--- NOTE | 2020-08-29 11:30 | NUR ---
STEVENO INFUSING WIHTOUT DIFFICULTY.
--- NOTE | 2020-08-29 11:41 | NUR ---
physician in to see patient to discuss findings
--- NOTE | 2020-08-29 12:00 | NUR ---
WOUND TO RIGHT LATERAL FOOT REDRESSING WIHT PADDED NON-ADHERENT DRESSING AND PAPER TAPE.
--- NOTE | 2020-08-29 13:00 | NUR ---
PATIENT RESTING, EYES CLOSED, NO DISTRESS.
--- NOTE | 2020-08-29 14:00 | NUR ---
FAMILY LEFT, PATIENT RESTING, CALL MARTINEZ IN REACH. DENIES NEEDS AT THIS TIME.
--- NOTE | 2020-08-29 15:00 | NUR ---
DR MEANS AT BEDSIDE DISCUSSING PLAN TO ADMIT. PATIENT AGREES. NO DISTRESS.
--- NOTE | 2020-08-29 15:36 | NUR ---
PATIENT TO MRI VIA WC AND O2 VIA NC AT 2L. NO DISTRESS. CRACKER, PEANUT BUTTER AND WATER GIVEN TO PATIENT.
--- NOTE | 2020-08-29 16:04 | NUR ---
ROOM 269 RECEIVED, ATTEMPT TO CALL REPORT.
--- NOTE | 2020-08-29 16:20 | NUR ---
DAUGHTER AND DAUGHTER'S BOYFRIEND LEFT [facility] PHONE NUMBERS ANDRAVÍCTOR- [phone] [phone]
--- NOTE | 2020-08-29 17:01 | NUR ---
REPORT CALLED TO CONSTANCE
[2020-08-29 17:24] VITALS: BP 90/53
--- NOTE | 2020-08-29 17:32 | NUR ---
PATIENT TAKEN TO ROOM 269 VIA WC, O2 VIA NC, BY THIS NURSE
--- NOTE | 2020-08-29 18:32 | NUR ---
REPORT RECEIVED FROM JOLIE IN ED, PT ARRIVED ON UNIT @ 1709 TRANSPORTED VIA WC AND SETTLED IN BED, ALERT AND ORIENTED X 3, C/O PAIN TO RIGHT FOOT @ 8/10, O2 @ 2L VIA NC I PLACE, ORIENTED TO ROOM AND CALL MARTINEZ, HEEL PROTECTORS APPLIED, IVF INITIATED, BED LOCKED IN LOWEST POSITION.
[2020-08-29 18:55] VITALS: BP 93/48
--- NOTE | 2020-08-29 20:05 | NUR ---
PT ASSESSMENT COMPLETED AT THIS TIME. SHE ASKED FOR FAMILY PHONE NUMBERS FROM CHART/PROVIDED AND PHONE PROVIDED AT BEDSIDE. DENIES ANY OTHER NEEDS AT THIS TIME.
--- NOTE | 2020-08-29 20:20 | NUR ---
PT TAKEN TO RADIOLOGY FOR CTA. WORKING 20 TO LAC FLUSHED PRIOR TO PT LEAVING MED SURG UNIT. ACCOMPANIED BY ENGRAVER TENDER, TRANSPORTED VIA WC WITH OXYGEN ON 2L NC IN PLACE.
--- NOTE | 2020-08-29 20:34 | NUR ---
PT BACK TO MED SURG UNIT, ASSISTED TO BSC AND TO BED BY CONTENT DESIGNER.
--- NOTE | 2020-08-29 20:42 | NUR ---
PT MEDICATED AT THIS TIME. ASSESSMENT ALREADY COMPLETED PREVIOUSLY SEE CHARTED ASSESSMENT. PT IS ASKING FOR FAMILY PHONE NUMBERS THAT WERE PROVIDED TO HER CHART, THIS HAS ALREADY BEEN PROVIDED, BUT SHE IS ASKING FOR IT AGAIN STATING THEY ARE INCORRECT NUMBERS. PROVIDED AND OFFER TO ASSIST PT TO CALL.
--- NOTE | 2020-08-29 23:40 | NUR ---
PT CALLED ASKING FOR MORE PAIN MEDICATION AGAIN AND A SANDWICH, I REVIEWED PAIN MEDICATION SCHEDULE WITH HER AND PROVIDED A SANDWICH. DENIED ANY OTHER NEEDS AND EXPRESSED UNDERSTANDING OF MED SCHEDULE.
--- NOTE | 2020-08-30 02:54 | NUR ---
PT CALLED COFFEE WEIGHER FOR ASSISTANCE AMBULATING TO [facility] AND BACK TO THE BED. SHE ASKED FOR A PAIN PILL. MEDICATED PT FOR PAIN 9/10 ON PAIN SCALE REPORTED BY PT. PT IS AWAKE WATCHING TV. NO S/O DISTRESS AT THIS TIME. R.FOOT IS ELEVATED ON PILLOWS AND HEEL PROTECTOR IS ON.
[2020-08-30 04:00] VITALS: BP 97/44
[2020-08-30 05:11] LABS: HEMATOCRIT 34.8 % (37.0-47.0); HEMOGLOBIN 10.7 g/dl (12.0-16.0); MEAN CELL VOLUME 101.2 fL CALC (80.0-100.0); MEAN CORPUSCULAR HGB 31.1 pG CALC (26.0-32.0); MEAN CORPUSCULAR HGB CONC 30.7 g/dL CAL (32.0-36.0); RED BLOOD COUNT 3.44 mill/uL (4.20-5.60); RED CELL DISTRI WIDTH 12.9 % (11.5-15.5)
[2020-08-30 05:31] LABS: ANION GAP 10 (6-22 (CALC)); BUN 16 mg/dL (8-23); BUN/CREATININE RATIO 24 (12-20 (CALC)); CARBON DIOXIDE 20 mmol/l (22-30); CHLORIDE 108 mmol/l (95-108); CREATININE 0.6 mg/dL (0.5-1.0); GFR > 60 ML/MIN (>=60 (CALC)); GFR FOR AFR.AMER. > 60 ML/MIN (>=60 (CALC)); HDL CHOLESTEROL 37 mg/dL (>=40); MAGNESIUM 1.6 mg/dL (1.6-2.3); POTASSIUM 3.5 mmol/l (3.5-5.1); SODIUM 135 mmol/l (137-146); TOTAL TRIGLYCERIDES 162 mg/dl (30-149); VLDL CHOLESTROL 32 mg/dl (0-48 (CALC))
[2020-08-30 05:37] LABS: CALCULATED LDLCHOLESTEROL 52 mg/dL (62-129 (CALC)); CHOLESTEROL HDL RATIO 3.3 (<4.4 (CALC)); TOTAL CHOLESTEROL 121 mg/dl (0-199)
--- NOTE | 2020-08-30 07:30 | NUR ---
ASSESSMENT IS COMPLETED: IV SITE IS FREE FROM REDNESS OR EDEMA. HR IS EG,PULSES ARE STRONG X4, ABD IS SOFT WITH ACTIVE BS. BREATH SOUNDS ARE COARSE, THROUGHOUT, O2@ 2LITERS WITH NC. TELE MONITOR IN PLACE. DRESSING ON R FOT IS CDI.
--- NOTE | 2020-08-30 07:32 | NUR ---
PT note Patient is screened for intervention and may benefit from functional assessment if medical is in agreement
[2020-08-30 08:50] VITALS: BP 109/45
--- NOTE | 2020-08-30 09:15 | NUR ---
pt transported to have the completion of mri. via wc with staff. continue to observe and monitor.
--- NOTE | 2020-08-30 10:10 | NUR ---
S: ANA JUSTICE is a 75 F who presents with cellulitis of right lower extremity. She has a history of glaucoma, cataracts, COPD, +ETOH, + TOB, depression, anxiety, infection right foot, blind in right eye, stroke, and underweight BMI=17. All medications in patient's chart were reviewed. VS: BP 97/44 mmHg, P 78 bpm, RR 18 bpm,T 98.3 F W 38 kg, HT 64 inches, Scr= 0.6 mg/dL, CrCl= 29.6 ml/min, WBC: 9.9 thous/uL Blood culture pending. P: Give dose as written. Patient is on Azactam 1gm IV Q8H. Vancomycin ordered for pharmacy to dose. Start Vancomycin 500 mg IV Q24H at 1200. Vancomycin trough is drawn before the on 09/01/20 at 1130. Vancomycin goal trough is between 10-15 mcg/ml. Pharmacy will follow and or advise on antibiotics use as needed.
--- NOTE | 2020-08-30 12:00 | NUR ---
PT IS RELAXING IN BED WITH NO DISTRESS NOTED. IV SITE IS FREE FROM REDNESS OR EDEMA. CONTINUE TO OBSERVE AND MONITOR.
[2020-08-30] MEDS ORDERED: DOXYCYCL HYC100 MG PO (12:04)
--- NOTE | 2020-08-30 12:21 | NUR ---
LEONORA SUNG AND DR GARCIA IN TO VISIT WITH PT. WILL DO OUTPT. WILL FINISH THE ABT PRIOR TO DISCHARGE.
--- NOTE | 2020-08-30 14:00 | NUR ---
IV ABT COMPLETED: IV SITE DISCONTINUED CATHETER INTACT NO REDNESS OR EDEMA. AT 1430 DISCHARGE INSTRUCTION GIVEN TO FAMILY AND PT, VERBALIZED UNDERSTANDING. INSTRUCTIONS FOR WOUND CARE , PHYSICAL THERAPY AND HOME HEALTH.
--- NOTE | 2020-08-30 14:35 | NUR ---
Discharge instructions given. Patient verbalizes understanding of same. Discharged in stable condition via Wheelchair to Home with family. All belongings sent with pt.
== END 2020-08-30 14:35 | disposition home health service (06) ==
LOC: ED 09:44 → ED-I 14:49 → ED 15:01 → MS2 15:02
PROVIDERS: Family Medicine; Nurse Practitioner; ADMIT Internal Medicine; ATTEND Internal Medicine
DX: L03.115 Cellulitis of right lower limb (principal); I70.234 Atherosclerosis of native arteries of right leg with ulceration of heel and midfoot; L97.419 Non-pressure chronic ulcer of right heel and midfoot with unspecified severity; I70.202 Unspecified atherosclerosis of native arteries of extremities, left leg; J44.9 Chronic obstructive pulmonary disease, unspecified; F32.9 Major depressive disorder, single episode, unspecified; F41.9 Anxiety disorder, unspecified; H54.61 Unqualified visual loss, right eye, normal vision left eye; H40.9 Unspecified glaucoma; K21.9 Gastro-esophageal reflux disease without esophagitis; R63.6 Underweight; F17.210 Nicotine dependence, cigarettes, uncomplicated; Z86.73 Personal history of transient ischemic attack (TIA), and cerebral infarction without residual deficits; Z68.1 Body mass index [BMI] 19.9 or less, adult; Z95.820 Peripheral vascular angioplasty status with implants and grafts; Z20.822 Contact with and (suspected) exposure to COVID-19
CPT/HCPCS: A6212; G0378; J1650; Q9967

== ENCOUNTER 2020-09-15 05:33 | Inpatient (IN) | payer MEDICARE, MEDICAID ==
[~2020-09-15] VITALS: Ht 162.6 cm; Wt 34.0 kg
[~2020-09-15 05:33] MED LIST changes: +ALENDRONATE SOD70 MG PO; +ASCORBIC ACD1000 MG PO; +B-121000 MCG SL; +DOXYCYCL HYC100 MG PO; +NITROFURANTN100 MG PO; +POTASSIUM CHLO20 ME2 PO; +PROAIR HFA108 MCG/AC
--- NOTE | 2020-09-15 05:49 | NUR ---
PATIENT OXYGEN DEPENDENT 2L VIA NC AT HOME. 2L NC IN USE AT THIS TIME O2 SAT 97-100%
[2020-09-15 06:31] LABS: HEMATOCRIT 38.4 % (37.0-47.0); HEMOGLOBIN 11.8 g/dl (12.0-16.0); IMMATURE GRANULOCYTES 0.7 % (0.0-5.0); MEAN CELL VOLUME 101.9 fL CALC (80.0-100.0); MEAN CORPUSCULAR HGB 31.3 pG CALC (26.0-32.0); MEAN CORPUSCULAR HGB CONC 30.7 g/dL CAL (32.0-36.0); NEUT# 9.08 thou/uL (2.00-7.15); RED BLOOD COUNT 3.77 mill/uL (4.20-5.60); RED CELL DISTRI WIDTH 13.4 % (11.5-15.5)
[2020-09-15 06:32] LABS: ALBUMIN 3.7 g/dL (3.2-5.0); ALKALINE PHOSPHATASE 81 u/l (38-126); BUN 17 mg/dL (8-23); BUN/CREATININE RATIO 26 (12-20 (CALC)); CHLORIDE 101 mmol/l (95-108); CREATININE 0.6 mg/dL (0.5-1.0); GFR > 60 ML/MIN (>=60 (CALC)); GFR FOR AFR.AMER. > 60 ML/MIN (>=60 (CALC)); SGOT/AST 28 u/l (9-36); SODIUM 137 mmol/l (137-146)
[2020-09-15 06:34] LABS: ANION GAP 15 (6-22 (CALC)); BILIRUBIN, TOTAL 0.2 mg/dL (0.0-1.4); CARBON DIOXIDE 25 mmol/l (22-30); D-DIMER 1.75 mg/L (0.19-0.60); POTASSIUM 4.3 mmol/l (3.5-5.1)
[2020-09-15 06:38] LABS: ACT PARTIAL THROMBO TIME 24.6 SECONDS (20.0-32.5); PROTHROMBIN TIME 10.2 SECONDS (9.0-12.5)
--- NOTE | 2020-09-15 06:56 | NUR ---
SON CALLED TO SAY PT RECENTLY HAD STENTS PLACED IN RLE AND TO AVOID DOING AN MRI.
--- NOTE | 2020-09-15 07:00 | NUR ---
INTRODUCED SELF TO PT. PT PLACED IN GOWN PT SATS 89 ON 2L/M VIA NC. ADVISED AND O2 INCREASED TO 3L/M VIA NC. SATS IMPROVED TO 96%
--- NOTE | 2020-09-15 07:00 | NUR ---
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
--- NOTE | 2020-09-15 08:11 | NUR ---
SON CONTACTED AT HOME BY FAMILY FOR UPDATED LIST OF HOME MEDICATIONS
--- NOTE | 2020-09-15 08:41 | NUR ---
PT HAS WALKING BOOT TO RT FOOT AND DRSG TO RT 5TH TOE LATERAL SIDE. DAUGHTER SAID AREA HAD BEEN TREATED FOR APPROX ONE YEAR.
--- NOTE | 2020-09-15 09:08 | NUR ---
DAUGHTER LEFT AND TOOK PTS ID WITH HER. STATED SHE WILL BE OUTSIIDE SHOULD WE NEED ANY INFO FROM HER.
--- NOTE | 2020-09-15 10:03 | NUR ---
PT ADVISED OF CTA RESULTS. IV ABT INFUSING. SITE HEALTHY.
[2020-09-15] MEDS ORDERED: OXYCODONE5 M1 PO (10:28)
[2020-09-15] MEDS ORDERED: PROTONIX40 M2 PO (10:30)
[2020-09-15] MEDS ORDERED: MIRTAZAPINE15 MG PO (10:30)
[2020-09-15] MEDS ORDERED: QUESTRAN4 G1 PO (10:30)
[2020-09-15] MEDS ORDERED: (None)1 % OU (10:31)
[2020-09-15] MEDS ORDERED: DOXYCYCL HYC100 MG PO (10:31)
[2020-09-15] MEDS ORDERED: CARAFATE PO (10:32)
--- NOTE | 2020-09-15 10:45 | NUR ---
PT/DAUGHTER ADVISED OF CONTINUED WAIT TIME. VOICED UNDERSTANDING.
--- NOTE | 2020-09-15 12:13 | NUR ---
PT SLEEPING ON STRETCHER DAUGHTER AT BEDSIDE. MEAL TRAY ORDERED.
--- NOTE | 2020-09-15 13:05 | NUR ---
REPORT PROVIDED TO SHARON NURSE, ON MEDSUR. ADVISED OF ALL EVENTS AND ATTACHMENTS. PT TO MEDSUR ON TELEMETRY IN STABLE CONDITION. IV SITES HEALTHY.
--- NOTE | 2020-09-15 13:15 | NUR ---
DRSG CHANGE TO RT FOOT/HEEL. PT TOLERATED WELL. TO MEDSURG VIA STRETCHER.
[2020-09-15 13:22] VITALS: BP 90/57
[2020-09-15 15:14] VITALS: BP 83/51
[2020-09-15 15:23] VITALS: BP 90/62
[2020-09-15 16:02] VITALS: BP 132/60
--- NOTE | 2020-09-15 19:12 | NUR ---
PT IN HIGH FOWLERS WITH LIGHTS AND TV ON. REPORTS MILD SOB, BUT NOT WORSENING. ASSESSMENT COMPLETED AT THIS TIME. DRESSING TO LEFT FOOT CDI AND DATED. POC DISCUSSED AND PT ENCOURAGED TO CALL NEEDS ARISE.
--- NOTE | 2020-09-15 19:55 | NUR ---
pt. admitted from ER via bed to [id number] alert and oriented, denied pain on admission period of shorness of breath with activity oxygen en place via N/C at 3lters sat 96% lung clear diminish oriented to the room staff member call light assistance given to bedside comode dressing on rt foot dry and intact done by ER state picture tacking in ED family member visiting with pt srtate she fiel better iv site intact and patentflushing well good blood return report giving to nightnurse for continuety of care.
[2020-09-15 20:32] VITALS: BP 83/51
--- NOTE | 2020-09-15 21:48 | NUR ---
PT MEDICATED ORDERS PROVIDE AND FOR PAIN IN HER LEFT FOOT. DRESSING CDI. SNACK PROVIDED.
[2020-09-15 23:55] VITALS: BP 87/47
[2020-09-16 00:15] VITALS: BP 89/50
--- NOTE | 2020-09-16 03:18 | NUR ---
PT MEDICATED ORDERS PROVIDE FOR PAIN IN R.FOOT. DRESSING CDI TO R.FOOT. WARMED BLANKETS PROVIDE, ROOM IS COLD AND UNABLE TO TURN AIR WARMER.
[2020-09-16 03:44] VITALS: BP 105/67
[2020-09-16 07:53] VITALS: BP 120/65
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
--- NOTE | 2020-09-16 10:53 | NUR ---
DR GILBERT & Suhail CASTORENA AD CLERK AT BEDSIDE DISCUSSING POC.
--- NOTE | 2020-09-16 11:37 | NUR ---
PT SITTING IN BED. EDUCATION GIVEN ON DOXYCYCLINE AND PREDNISONE PO. PAIN MEDICATION GIVEN. NO OTHER NEEDS AT THIS TIME. CALL LIGHT WITHIN REACH.
[2020-09-16 12:00] VITALS: BP 101/63
--- NOTE | 2020-09-16 13:39 | NUR ---
DR ROSARIO AT BEDSIDE FOR WOUND CONSULT
--- NOTE | 2020-09-16 16:15 | NUR ---
PT SITTING IN BED. NO DISTRESS NOTED. CALL LIGHT WITHIN REACH.
[2020-09-16 18:43] VITALS: BP 113/67
[2020-09-16 19:00] VITALS: BP 94/49
--- NOTE | 2020-09-16 19:19 | NUR ---
RECEIVED REPORT FROM NURSE ASHANTI, PATIENT RESTING IN BED EYES CLOSED, NULABORED BREATHING CALL LIGHT AT REACH.
--- NOTE | 2020-09-16 20:00 | NUR ---
PATIENT ALERT ORINETED ABLE TO MAKE NEEDS KNOWN, HOOKED TO O2 @ 3LPM VIA NC, BREATHING SHALLOW, EXERTIONAL DYSPNEA NOTED, PATIENT HAVING NON PRODUCTIVE COUGH, C/O PAIN ON RT FOOT, WILL MEDICATE, WOUND ON RT FOOT DRESSING CLEAN DRY INTACT, FEET OFFLOADED, LUNG SOUNDS CLEAR/DIMINISHED AT BASES, ACTIVE BOWEL SOUNDS LBM 09/16, CALL LIGHT AT REACH.
[2020-09-17] VITALS: BP 119/73
--- NOTE | 2020-09-17 | NUR ---
PATIENT APPEARS TO BE SLEEPING WITH EYES CLOSED, BREATHIMG UNLBORED REMAINS ON O2 @ 3LPM VIA NC, CALL LIGHT AT REACH.
[2020-09-17 04:00] VITALS: BP 140/81
--- NOTE | 2020-09-17 04:14 | NUR ---
PATIENT RESTING IN BED, EYES CLSOED, TECH IN ROOM FOR BLOOD DRAW, CALL LIGHT AT REACH.
[2020-09-17 05:21] LABS: HEMATOCRIT 36.3 % (37.0-47.0); HEMOGLOBIN 11.5 g/dl (12.0-16.0); MEAN CELL VOLUME 99.7 fL CALC (80.0-100.0); MEAN CORPUSCULAR HGB 31.6 pG CALC (26.0-32.0); MEAN CORPUSCULAR HGB CONC 31.7 g/dL CAL (32.0-36.0); RED BLOOD COUNT 3.64 mill/uL (4.20-5.60); RED CELL DISTRI WIDTH 13.8 % (11.5-15.5)
[2020-09-17 06:00] LABS: ALBUMIN 3.3 g/dL (3.2-5.0); ALKALINE PHOSPHATASE 81 u/l (38-126); BUN 13 mg/dL (8-23); BUN/CREATININE RATIO 23 (12-20 (CALC)); CHLORIDE 97 mmol/l (95-108); CREATININE 0.6 mg/dL (0.5-1.0); GFR > 60 ML/MIN (>=60 (CALC)); GFR FOR AFR.AMER. > 60 ML/MIN (>=60 (CALC)); POTASSIUM 4.8 mmol/l (3.5-5.1); SGOT/AST 30 u/l (9-36); SODIUM 133 mmol/l (137-146); TOTAL PROTEIN 6.2 g/dL (6.3-8.2)
[2020-09-17 06:02] LABS: ANION GAP 9 (6-22 (CALC)); CARBON DIOXIDE 32 mmol/l (22-30)
--- NOTE | 2020-09-17 06:56 | NUR ---
REPORT REC FROM Coco CARDONA RN
[2020-09-17 08:24] VITALS: BP 122/67
--- NOTE | 2020-09-17 08:24 | NUR ---
PT SITTING IN BED. A&O X4. NO DISTRESS NOTED. O2 VIA NC @3L IN PLACE, O2 SUSTAINING 93-96%. CLEAR DIMINISHED BREATH SOUNDS UPON AUSCULATION. ACTIVE BOWEL SOUNDS X4 QUADRANTS. DRESSING TO RT FOOT CDI. TELEMETRY IN PLACE. NO OTHER NEEDS AT THIS TIME. CALL LIGHT WITHIN REACH.
[2020-09-17 11:15] VITALS: BP 109/53
[2020-09-17] MEDS ORDERED: DOXYCYC MONO100 M2 PO (12:58)
[2020-09-17] MEDS ORDERED: PREDNISONE10 MG PO (13:00)
--- NOTE | 2020-09-17 14:23 | NUR ---
Discharge instructions given. Patient verbalizes understanding of same. Discharged in stable condition via Wheelchair to Home with staff. All belongings sent with pt. Pt sent via room air, per pt she does not use continuous o2 at home she only uses it at bedtime. O2 via room air assessed by this screenplay writer prior to being d/c o2 sustaining 94%-96%. Asked daughter to check if portable o2 was in the vehicle prior to d/c in case pt needed it, o2 at home . per son " My sister worked 10 hrs she is not going to drive back to [place] to pick it up". explained to the son that it was in case pt needed it. pt asked multiple times, if she felt safe and comfortable enough to not wear continuous o2, per pt this is her baseline. pt encouraged to return for new or worsening symptoms.
== END 2020-09-17 14:23 | DRG 190 ==
LOC: ED 05:33 → ED-I 09:50 → ED 10:05 → MS2 10:06
PROVIDERS: Family Medicine; Nurse Practitioner Family; ADMIT Internal Medicine; ATTEND Internal Medicine
DX: J44.1 Chronic obstructive pulmonary disease with (acute) exacerbation (principal); J18.9 Pneumonia, unspecified organism; Z68.1 Body mass index [BMI] 19.9 or less, adult; M86.8X7 Other osteomyelitis, ankle and foot; L03.115 Cellulitis of right lower limb; J44.0 Chronic obstructive pulmonary disease with (acute) lower respiratory infection; I73.9 Peripheral vascular disease, unspecified; S91.301A Unspecified open wound, right foot, initial encounter; F41.9 Anxiety disorder, unspecified; F32.9 Major depressive disorder, single episode, unspecified; H54.61 Unqualified visual loss, right eye, normal vision left eye; R63.6 Underweight; H40.9 Unspecified glaucoma; K21.9 Gastro-esophageal reflux disease without esophagitis; F17.210 Nicotine dependence, cigarettes, uncomplicated; X58.XXXA Exposure to other specified factors, initial encounter; Z99.81 Dependence on supplemental oxygen; Z86.73 Personal history of transient ischemic attack (TIA), and cerebral infarction without residual deficits; Z95.820 Peripheral vascular angioplasty status with implants and grafts; Z20.822 Contact with and (suspected) exposure to COVID-19; L97.512 Non-pressure chronic ulcer of other part of right foot with fat layer exposed; M79.671 Pain in right foot; F17.218 Nicotine dependence, cigarettes, with other nicotine-induced disorders; I70.235 Atherosclerosis of native arteries of right leg with ulceration of other part of foot; L98.494 Non-pressure chronic ulcer of skin of other sites with necrosis of bone
CPT/HCPCS: Q9967

== ENCOUNTER 2020-12-13 11:01 | Day surgery (SDC) | payer MEDICARE, MEDICAID ==
[~2020-12-13] VITALS: Ht 162.6 cm; Wt 36.0 kg
[~2020-12-13 11:01] MED LIST changes: +(None)1 % OU; +CARAFATE PO; +DIAZEPAM2 MG PO; +DOXYCYC MONO100 M2 PO; +MIRTAZAPINE15 MG PO; +OXYCODONE5 M1 PO; +PREDNISONE10 MG PO; +QUESTRAN4 G1 PO
[2020-12-13 15:06] VITALS: BP 67/34
== END 2020-12-13 15:00 | disposition home or self-care (01) ==
LOC: ORM 11:01
PROVIDERS: ATTEND Podiatrist Foot & Ankle Surgery
PROC: 0Y6X0Z0 Detachment at Right 5th Toe, Complete, Open Approach (ICD-10-PCS; principal; 2020-12-13)
PROC: 0QBN0ZX Excision of Right Metatarsal, Open Approach, Diagnostic (ICD-10-PCS; 2020-12-13)
PROC: 0HXMXZZ Transfer Right Foot Skin, External Approach (ICD-10-PCS; 2020-12-13)
DX: M86.171 Other acute osteomyelitis, right ankle and foot (principal); I70.261 Atherosclerosis of native arteries of extremities with gangrene, right leg; L97.514 Non-pressure chronic ulcer of other part of right foot with necrosis of bone; F17.200 Nicotine dependence, unspecified, uncomplicated; L03.115 Cellulitis of right lower limb; Z95.820 Peripheral vascular angioplasty status with implants and grafts

== ENCOUNTER 2021-04-11 17:59 | Emergency (ER) | payer MEDICARE, MEDICAID ==
[~2021-04-11] VITALS: Ht 162.6 cm; Wt 40.0 kg
[2021-04-11 18:54] LABS: IMMATURE GRANULOCYTES 0.3 % (0.0-5.0); MEAN CELL VOLUME 98.4 fL CALC (80.0-100.0); MEAN CORPUSCULAR HGB 31.2 pG CALC (26.0-32.0); MEAN CORPUSCULAR HGB CONC 31.7 g/dL CAL (32.0-36.0); NEUT# 20.75 thou/uL (2.00-7.15); RED BLOOD COUNT 4.3 mill/uL (4.20-5.60)
[2021-04-11 18:56] LABS: HEMATOCRIT 42.3 % (37.0-47.0); HEMOGLOBIN 13.4 g/dl (12.0-16.0)
[2021-04-11 19:14] LABS: ALKALINE PHOSPHATASE 109 u/l (38-126); BILIRUBIN, TOTAL 0.3 mg/dL (0.0-1.4); BUN 14 mg/dL (8-23); BUN/CREATININE RATIO 22 (12-20 (CALC)); CHLORIDE 101 mmol/l (95-108); CREATININE 0.6 mg/dL (0.5-1.0); GFR > 60 ML/MIN (>=60 (CALC)); GFR FOR AFR.AMER. > 60 ML/MIN (>=60 (CALC)); POTASSIUM 3.6 mmol/l (3.5-5.1); SGOT/AST 22 u/l (9-36); SODIUM 137 mmol/l (137-146)
[2021-04-11 19:15] LABS: ALBUMIN 4.5 g/dL (3.2-5.0); ANION GAP 18 (6-22 (CALC)); CARBON DIOXIDE 22 mmol/l (22-30); D-DIMER 0.93 mg/L (0.19-0.60); TOTAL PROTEIN 8.5 g/dL (6.3-8.2)
[2021-04-11 19:18] LABS: ACT PARTIAL THROMBO TIME 29.1 SECONDS (20.0-32.5); INTERNATIONAL NORMALIZED RATIO 0.9 RATIO (0.7-1.3); PROTHROMBIN TIME 9.9 SECONDS (9.0-12.5)
[2021-04-11 19:26] LABS: MYOGLOBIN 46 ng/mL (0 - 62)
[2021-04-11] MEDS ORDERED: VIBRAMYCIN100 M2 PO (21:18)
[2021-04-11] MEDS ORDERED: PREDNISONE50 MG PO (21:18)
[2021-04-11 21:23] VITALS: BP 102/63
== END 2021-04-11 21:30 | disposition home or self-care (01) ==
LOC: ED 17:59
PROVIDERS: Family Medicine
DX: J44.1 Chronic obstructive pulmonary disease with (acute) exacerbation (principal); J18.9 Pneumonia, unspecified organism; J44.0 Chronic obstructive pulmonary disease with (acute) lower respiratory infection; I10 Essential (primary) hypertension; F41.9 Anxiety disorder, unspecified; F32.A Depression, unspecified; K21.9 Gastro-esophageal reflux disease without esophagitis; Z86.73 Personal history of transient ischemic attack (TIA), and cerebral infarction without residual deficits; Z95.820 Peripheral vascular angioplasty status with implants and grafts; Z87.891 Personal history of nicotine dependence; Z89.611 Acquired absence of right leg above knee; Z20.822 Contact with and (suspected) exposure to COVID-19
CPT/HCPCS: Q9967

== ENCOUNTER 2021-05-19 02:12 | Inpatient (IN) | payer MEDICARE, MEDICAID ==
[2021-05-19] VITALS (199 sets, daily range): BP systolic 78–167; BP diastolic 34–99
[~2021-05-19] VITALS: Ht 162.6 cm; Wt 45.3 kg
[~2021-05-19 02:12] MED LIST changes: -BRIMONIDINE0.2 % OD; +BUSPIRONE10 MG PO; -BUSPIRONE5 MG PO; +COMBIGAN0.2 MG/0.5 OU; -OXYCODONE5 M1 PO; +PERCOCET 5/325M1 TAB PO; +PREDNISONE50 MG PO; +VIBRAMYCIN100 M2 PO
[2021-05-19 03:16] LABS: HEMOGLOBIN 12.2 g/dl (12.0-16.0); IMMATURE GRANULOCYTES 1.8 % (0.0-5.0); MEAN CORPUSCULAR HGB 30.7 pG CALC (26.0-32.0); NEUT# 5.18 thou/uL (2.00-7.15); RED BLOOD COUNT 3.97 mill/uL (4.20-5.60); RED CELL DISTRI WIDTH 13.2 % (11.5-15.5)
[2021-05-19 03:24] LABS: MEAN CELL VOLUME 105.8 fL CALC (80.0-100.0)
[2021-05-19 03:34] LABS: ALBUMIN 3.7 g/dL (3.2-5.0); ALKALINE PHOSPHATASE 100 u/l (38-126); BUN 9 mg/dL (8-23); BUN/CREATININE RATIO 12 (12-20 (CALC)); CHLORIDE 106 mmol/l (95-108); CREATININE 0.8 mg/dL (0.5-1.0); GFR > 60 ML/MIN (>=60 (CALC)); GFR FOR AFR.AMER. > 60 ML/MIN (>=60 (CALC)); SODIUM 136 mmol/l (137-146); TOTAL PROTEIN 7.1 g/dL (6.3-8.2)
[2021-05-19 03:40] LABS: ANION GAP 19 (6-22 (CALC)); BILIRUBIN, TOTAL 0.5 mg/dL (0.0-1.4); CARBON DIOXIDE 15 mmol/l (22-30); POTASSIUM 4.3 mmol/l (3.5-5.1); SGOT/AST 81 u/l (9-36)
[2021-05-19 03:50] LABS: MYOGLOBIN 284 ng/mL (0 - 62)
[2021-05-19 05:23] LABS: URINE BILIRUBIN - DIPSTICK NEGATIVE (NEGATIVE); URINE BLOOD DIPSTICK MODERATE (NEGATIVE); URINE COLOR YELLOW; URINE GLUCOSE - DIPSTICK 250 mg/dL (NEGATIVE); URINE KETONE NEGATIVE (NEGATIVE); URINE PROTEIN - DIPSTICK 100 mg/dL (NEG-TRACE); URINE SPECIFIC GRAVITY >=1.030; URINE UROBILINOGEN - DIPSTICK 0.2 E.U./dL (0.2)
[2021-05-19 05:32] LABS: URINE LEUK ESTERASE NEGATIVE (NEGATIVE); URINE NITRITE - DIPSTICK NEGATIVE (Negative)
[2021-05-19 05:34] LABS: URINE BACTERIA MODERATE hpf; URINE EPITHELIAL CELLS MANY EPI/hpf (0-FEW)
[2021-05-19 05:35] LABS: URINE CASTS MANY lpf (NONE-RARE); URINE COARSE GRANULAR CAST MODERATE lpf
[2021-05-20] VITALS (25 sets, daily range): BP systolic 108–160; BP diastolic 52–83
[2021-05-20 05:15] LABS: MEAN CORPUSCULAR HGB 31.1 pG CALC (26.0-32.0); MEAN CORPUSCULAR HGB CONC 31.5 g/dL CAL (32.0-36.0); RED BLOOD COUNT 2.93 mill/uL (4.20-5.60); RED CELL DISTRI WIDTH 13.3 % (11.5-15.5)
[2021-05-20 05:30] LABS: ALKALINE PHOSPHATASE 64 u/l (38-126); BUN 10 mg/dL (8-23); BUN/CREATININE RATIO 20 (12-20 (CALC)); CHLORIDE 110 mmol/l (95-108); CREATININE 0.5 mg/dL (0.5-1.0); GFR > 60 ML/MIN (>=60 (CALC)); GFR FOR AFR.AMER. > 60 ML/MIN (>=60 (CALC)); MAGNESIUM 1.3 mg/dL (1.6-2.3); SGOT/AST 43 u/l (9-36); SODIUM 140 mmol/l (137-146)
[2021-05-20 05:31] LABS: HEMATOCRIT 28.9 % (37.0-47.0); HEMOGLOBIN 9.1 g/dl (12.0-16.0); MEAN CELL VOLUME 98.6 fL CALC (80.0-100.0)
[2021-05-20 05:45] LABS: ALBUMIN 2.7 g/dL (3.2-5.0); ANION GAP 10 (6-22 (CALC)); BILIRUBIN, TOTAL 0.1 mg/dL (0.0-1.4); CARBON DIOXIDE 23 mmol/l (22-30); POTASSIUM 3.2 mmol/l (3.5-5.1)
[2021-05-21] VITALS (23 sets, daily range): BP systolic 101–135; BP diastolic 43–78
[2021-05-21 05:48] LABS: HEMATOCRIT 24.7 % (37.0-47.0); HEMOGLOBIN 7.7 g/dl (12.0-16.0); MEAN CELL VOLUME 99.2 fL CALC (80.0-100.0); MEAN CORPUSCULAR HGB 30.9 pG CALC (26.0-32.0); MEAN CORPUSCULAR HGB CONC 31.2 g/dL CAL (32.0-36.0); RED BLOOD COUNT 2.49 mill/uL (4.20-5.60); RED CELL DISTRI WIDTH 13.6 % (11.5-15.5)
[2021-05-21 06:12] LABS: ALBUMIN 2.6 g/dL (3.2-5.0); ALKALINE PHOSPHATASE 61 u/l (38-126); ANION GAP 6 (6-22 (CALC)); BUN 7 mg/dL (8-23); BUN/CREATININE RATIO 15 (12-20 (CALC)); CARBON DIOXIDE 27 mmol/l (22-30); CHLORIDE 113 mmol/l (95-108); CREATININE 0.5 mg/dL (0.5-1.0); GFR > 60 ML/MIN (>=60 (CALC)); GFR FOR AFR.AMER. > 60 ML/MIN (>=60 (CALC)); POTASSIUM 3.6 mmol/l (3.5-5.1); SGOT/AST 29 u/l (9-36); SODIUM 142 mmol/l (137-146); TOTAL PROTEIN 4.8 g/dL (6.3-8.2)
[2021-05-21 06:22] LABS: BILIRUBIN, TOTAL 0.2 mg/dL (0.0-1.4); MAGNESIUM 1.9 mg/dL (1.6-2.3)
[2021-05-22] VITALS (7 sets, daily range): BP systolic 105–141; BP diastolic 38–55
[2021-05-22 05:41] LABS: HEMATOCRIT 24.7 % (37.0-47.0); HEMOGLOBIN 7.7 g/dl (12.0-16.0); MEAN CELL VOLUME 99.2 fL CALC (80.0-100.0); MEAN CORPUSCULAR HGB 30.9 pG CALC (26.0-32.0); MEAN CORPUSCULAR HGB CONC 31.2 g/dL CAL (32.0-36.0); RED BLOOD COUNT 2.49 mill/uL (4.20-5.60); RED CELL DISTRI WIDTH 13.4 % (11.5-15.5)
[2021-05-22 06:13] LABS: BUN 12 mg/dL (8-23); BUN/CREATININE RATIO 23 (12-20 (CALC)); CARBON DIOXIDE 26 mmol/l (22-30); CHLORIDE 107 mmol/l (95-108); CREATININE 0.5 mg/dL (0.5-1.0); GFR > 60 ML/MIN (>=60 (CALC)); GFR FOR AFR.AMER. > 60 ML/MIN (>=60 (CALC)); MAGNESIUM 1.5 mg/dL (1.6-2.3); SODIUM 139 mmol/l (137-146)
[2021-05-22 06:26] LABS: ANION GAP 10 (6-22 (CALC)); POTASSIUM 3.5 mmol/l (3.5-5.1)
[2021-05-22] MEDS ORDERED: DIAZEPAM2 MG PO (13:52)
[2021-05-22] MEDS ORDERED: PERCOCET 5/325M1 TAB PO (13:52)
[2021-05-22] MEDS ORDERED: PREDNISONE10 MG PO (13:52)
[2021-05-22] MEDS ORDERED: VIBRAMYCIN100 M2 PO (13:52)
[2021-05-23] MEDS ORDERED: FEOSOL45 MG PO (18:17)
== END 2021-05-22 20:20 | DRG 208 ==
LOC: ED 02:12 → ED-I 02:16 → ED 04:28 → ICU 04:29 → MS2 05-21 23:00
PROVIDERS: Emergency Medicine; ADMIT Hospitalist; ATTEND Internal Medicine
PROC: 0T9B70Z Drainage of Bladder with Drainage Device, Via Natural or Artificial Opening (ICD-10-PCS; principal; 2021-05-19)
PROC: 5A1945Z Respiratory Ventilation, 24-96 Consecutive Hours (ICD-10-PCS; 2021-05-19)
PROC: 02HV33Z Insertion of Infusion Device into Superior Vena Cava, Percutaneous Approach (ICD-10-PCS; 2021-05-19)
DX: J44.1 Chronic obstructive pulmonary disease with (acute) exacerbation (principal); J96.22 Acute and chronic respiratory failure with hypercapnia; J96.21 Acute and chronic respiratory failure with hypoxia; E87.2 Acidosis; I69.354 Hemiplegia and hemiparesis following cerebral infarction affecting left non-dominant side; J96.11 Chronic respiratory failure with hypoxia; I10 Essential (primary) hypertension; K21.9 Gastro-esophageal reflux disease without esophagitis; F41.9 Anxiety disorder, unspecified; F32.A Depression, unspecified; G89.29 Other chronic pain; F10.20 Alcohol dependence, uncomplicated; F11.10 Opioid abuse, uncomplicated; F17.200 Nicotine dependence, unspecified, uncomplicated; I69.398 Other sequelae of cerebral infarction; G93.89 Other specified disorders of brain; Z88.0 Allergy status to penicillin; Z95.820 Peripheral vascular angioplasty status with implants and grafts; Z89.611 Acquired absence of right leg above knee; Z90.01 Acquired absence of eye; Z20.822 Contact with and (suspected) exposure to COVID-19; Z79.02 Long term (current) use of antithrombotics/antiplatelets
CPT/HCPCS: J1650; J3475; S0164

== ENCOUNTER 2021-05-23 15:29 | Emergency (ER) | payer MEDICARE, MEDICAID ==
[2021-05-23] VITALS (8 sets, daily range): BP systolic 118–141; BP diastolic 44–65
[~2021-05-23] VITALS: Ht 162.6 cm; Wt 58.0 kg
[2021-05-23 16:34] LABS: HEMATOCRIT 28.4 % (37.0-47.0); HEMOGLOBIN 8.8 g/dl (12.0-16.0); IMMATURE GRANULOCYTES 0.5 % (0.0-5.0); MEAN CELL VOLUME 101.4 fL CALC (80.0-100.0); MEAN CORPUSCULAR HGB 31.4 pG CALC (26.0-32.0); NEUT# 7.96 thou/uL (2.00-7.15); RED BLOOD COUNT 2.8 mill/uL (4.20-5.60); RED CELL DISTRI WIDTH 13.7 % (11.5-15.5)
[2021-05-23 16:44] LABS: ALKALINE PHOSPHATASE 83 u/l (38-126); ANION GAP 9 (6-22 (CALC)); BILIRUBIN, TOTAL 0.2 mg/dL (0.0-1.4); BUN 14 mg/dL (8-23); BUN/CREATININE RATIO 24 (12-20 (CALC)); CARBON DIOXIDE 28 mmol/l (22-30); CHLORIDE 105 mmol/l (95-108); CREATININE 0.6 mg/dL (0.5-1.0); GFR > 60 ML/MIN (>=60 (CALC)); GFR FOR AFR.AMER. > 60 ML/MIN (>=60 (CALC)); POTASSIUM 3.1 mmol/l (3.5-5.1); SGOT/AST 25 u/l (9-36); SODIUM 139 mmol/l (137-146)
[2021-05-23 16:45] LABS: ALBUMIN 3.3 g/dL (3.2-5.0); TOTAL PROTEIN 5.9 g/dL (6.3-8.2)
[2021-05-23 16:56] LABS: MYOGLOBIN 40 ng/mL (0 - 62)
[2021-05-23 17:20] LABS: URINE BILIRUBIN - DIPSTICK NEGATIVE (NEGATIVE); URINE BLOOD DIPSTICK NEGATIVE (NEGATIVE); URINE COLOR YELLOW; URINE GLUCOSE - DIPSTICK NEGATIVE (NEGATIVE); URINE KETONE NEGATIVE (NEGATIVE); URINE LEUK ESTERASE TRACE (NEGATIVE); URINE NITRITE - DIPSTICK NEGATIVE (Negative); URINE PH 6.5 (4.5-8.0); URINE PROTEIN - DIPSTICK NEGATIVE (NEG-TRACE); URINE SPECIFIC GRAVITY <=1.005; URINE UROBILINOGEN - DIPSTICK 0.2 E.U./dL (0.2)
[2021-05-23] MEDS ORDERED: FEOSOL45 MG PO (18:17)
== END 2021-05-23 19:10 | disposition home or self-care (01) ==
LOC: ED 15:29
PROVIDERS: Emergency Medicine
DX: R53.1 Weakness (principal); D64.9 Anemia, unspecified; E87.6 Hypokalemia; I10 Essential (primary) hypertension; J44.9 Chronic obstructive pulmonary disease, unspecified; R63.6 Underweight; I73.9 Peripheral vascular disease, unspecified; K21.9 Gastro-esophageal reflux disease without esophagitis; F32.A Depression, unspecified; H54.61 Unqualified visual loss, right eye, normal vision left eye; Z95.820 Peripheral vascular angioplasty status with implants and grafts; Z89.611 Acquired absence of right leg above knee; Z86.73 Personal history of transient ischemic attack (TIA), and cerebral infarction without residual deficits

== ENCOUNTER 2021-06-23 00:49 | Emergency (ER) | payer MEDICARE, MEDICAID ==
[~2021-06-23] VITALS: Ht 162.6 cm; Wt 36.0 kg
[~2021-06-23 00:49] MED LIST changes: +FEOSOL45 MG PO
[2021-06-23 00:56] VITALS: BP 117/57
[2021-06-23 01:00] VITALS: BP 97/46
[2021-06-23 01:30] VITALS: BP 108/45
[2021-06-23 01:30] LABS: HEMATOCRIT 33.2 % (37.0-47.0); HEMOGLOBIN 10.3 g/dl (12.0-16.0); IMMATURE GRANULOCYTES 0.8 % (0.0-5.0); MEAN CELL VOLUME 101.2 fL CALC (80.0-100.0); MEAN CORPUSCULAR HGB 31.4 pG CALC (26.0-32.0); NEUT# 7.12 thou/uL (2.00-7.15); RED BLOOD COUNT 3.28 mill/uL (4.20-5.60); RED CELL DISTRI WIDTH 14.3 % (11.5-15.5)
[2021-06-23 01:46] LABS: ALKALINE PHOSPHATASE 108 u/l (38-126); ANION GAP 10 (6-22 (CALC)); BUN 13 mg/dL (8-23); BUN/CREATININE RATIO 26 (12-20 (CALC)); CARBON DIOXIDE 28 mmol/l (22-30); CHLORIDE 102 mmol/l (95-108); CREATININE 0.5 mg/dL (0.5-1.0); GFR > 60 ML/MIN (>=60 (CALC)); GFR FOR AFR.AMER. > 60 ML/MIN (>=60 (CALC)); POTASSIUM 3.3 mmol/l (3.5-5.1); SGOT/AST 34 u/l (9-36); SODIUM 138 mmol/l (137-146)
[2021-06-23 01:47] LABS: ALBUMIN 4.1 g/dL (3.2-5.0); BILIRUBIN, TOTAL 0.3 mg/dL (0.0-1.4); TOTAL PROTEIN 7.3 g/dL (6.3-8.2)
[2021-06-23 01:48] LABS: ACT PARTIAL THROMBO TIME 25.3 SECONDS (20.0-32.5); INTERNATIONAL NORMALIZED RATIO 0.9 RATIO (0.7-1.3); PROTHROMBIN TIME 9.9 SECONDS (9.0-12.5)
[2021-06-23 01:54] LABS: MYOGLOBIN 36 ng/mL (0 - 62)
[2021-06-23 01:57] LABS: D-DIMER 2.12 mg/L (0.19-0.60)
[2021-06-23 02:00] VITALS: BP 112/54
[2021-06-23 02:31] VITALS: BP 104/32
[2021-06-23] MEDS ORDERED: PREDNISONE50 MG PO (02:57)
[2021-06-23] MEDS ORDERED: PLAVIX75 MG PO (02:57)
[2021-06-23 03:04] VITALS: BP 104/32
== END 2021-06-23 03:15 | disposition home or self-care (01) ==
LOC: ED 00:49
PROVIDERS: Family Medicine
DX: J44.1 Chronic obstructive pulmonary disease with (acute) exacerbation (principal); I10 Essential (primary) hypertension; R63.6 Underweight; I73.9 Peripheral vascular disease, unspecified; F41.9 Anxiety disorder, unspecified; F32.A Depression, unspecified; K21.9 Gastro-esophageal reflux disease without esophagitis; H54.61 Unqualified visual loss, right eye, normal vision left eye; Z86.73 Personal history of transient ischemic attack (TIA), and cerebral infarction without residual deficits; Z89.611 Acquired absence of right leg above knee; Z95.820 Peripheral vascular angioplasty status with implants and grafts; Z90.01 Acquired absence of eye; Z74.01 Bed confinement status

== ENCOUNTER 2021-06-29 11:06 | Emergency (ER) | payer MEDICARE, MEDICAID ==
[~2021-06-29] VITALS: Ht 162.6 cm; Wt 44.0 kg
[2021-06-29 12:43] VITALS: BP 116/58
== END 2021-06-29 12:55 | disposition home or self-care (01) ==
LOC: ED 11:06
DX: S80.12XA Contusion of left lower leg, initial encounter (principal); S80.812A Abrasion, left lower leg, initial encounter; I10 Essential (primary) hypertension; I73.9 Peripheral vascular disease, unspecified; K21.9 Gastro-esophageal reflux disease without esophagitis; F41.9 Anxiety disorder, unspecified; J44.9 Chronic obstructive pulmonary disease, unspecified; F32.A Depression, unspecified; R63.6 Underweight; H54.61 Unqualified visual loss, right eye, normal vision left eye; W22.09XA Striking against other stationary object, initial encounter; Y92.003 Bedroom of unspecified non-institutional (private) residence as the place of occurrence of the external cause; Z79.82 Long term (current) use of aspirin; Z89.611 Acquired absence of right leg above knee; Z79.02 Long term (current) use of antithrombotics/antiplatelets; Z86.73 Personal history of transient ischemic attack (TIA), and cerebral infarction without residual deficits

== ENCOUNTER 2021-07-19 13:42 | Inpatient (IN) | payer MEDICARE, MEDICAID ==
[~2021-07-19] VITALS: Ht 152.4 cm; Wt 43.0 kg
[2021-07-19] VITALS (39 sets, daily range): BP systolic 64–141; BP diastolic 34–119
[2021-07-19 14:05] LABS: HEMATOCRIT 32.9 % (37.0-47.0); IMMATURE GRANULOCYTES 0.5 % (0.0-5.0); MEAN CELL VOLUME 104.1 fL CALC (80.0-100.0); MEAN CORPUSCULAR HGB 31.6 pG CALC (26.0-32.0); MEAN CORPUSCULAR HGB CONC 30.4 g/dL CAL (32.0-36.0); NEUT# 8.18 thou/uL (2.00-7.15); RED BLOOD COUNT 3.16 mill/uL (4.20-5.60); RED CELL DISTRI WIDTH 14.3 % (11.5-15.5)
[2021-07-19 14:23] LABS: ALBUMIN 3.9 g/dL (3.2-5.0); ALKALINE PHOSPHATASE 98 u/l (38-126); BUN 15 mg/dL (8-23); BUN/CREATININE RATIO 21 (12-20 (CALC)); CARBON DIOXIDE 24 mmol/l (22-30); CHLORIDE 105 mmol/l (95-108); CREATININE 0.7 mg/dL (0.5-1.0); GFR > 60 ML/MIN (>=60 (CALC)); GFR FOR AFR.AMER. > 60 ML/MIN (>=60 (CALC)); LIPASE 79 u/l (23-300); SGOT/AST 21 u/l (9-36); SODIUM 140 mmol/l (137-146); TOTAL PROTEIN 6.8 g/dL (6.3-8.2)
[2021-07-19 14:24] LABS: ACT PARTIAL THROMBO TIME 23.2 SECONDS (20.0-32.5); INTERNATIONAL NORMALIZED RATIO 0.9 RATIO (0.7-1.3); PROTHROMBIN TIME 9.5 SECONDS (9.0-12.5)
[2021-07-19 14:25] LABS: ANION GAP 16 (6-22 (CALC)); BILIRUBIN, TOTAL 0.1 mg/dL (0.0-1.4); POTASSIUM 5.3 mmol/l (3.5-5.1)
[2021-07-19 14:59] LABS: URINE BILIRUBIN - DIPSTICK NEGATIVE (NEGATIVE); URINE BLOOD DIPSTICK NEGATIVE (NEGATIVE); URINE COLOR YELLOW; URINE GLUCOSE - DIPSTICK NEGATIVE (NEGATIVE); URINE KETONE NEGATIVE (NEGATIVE); URINE LEUK ESTERASE NEGATIVE (NEGATIVE); URINE NITRITE - DIPSTICK POSITIVE (Negative); URINE PROTEIN - DIPSTICK NEGATIVE (NEG-TRACE); URINE SPECIFIC GRAVITY >=1.030; URINE UROBILINOGEN - DIPSTICK 0.2 E.U./dL (0.2)
[2021-07-19 15:12] LABS: URINE BACTERIA FEW hpf; URINE RBC 0-2 RBC/hpf (0-5); URINE SQUAMOUS EPITHELIAL CELL FEW EPI/hpf (0-FEW)
[2021-07-20] VITALS (47 sets, daily range): BP systolic 91–124; BP diastolic 29–100
[2021-07-20 05:38] LABS: MEAN CELL VOLUME 103.7 fL CALC (80.0-100.0); MEAN CORPUSCULAR HGB 31.7 pG CALC (26.0-32.0); MEAN CORPUSCULAR HGB CONC 30.6 g/dL CAL (32.0-36.0); RED BLOOD COUNT 2.46 mill/uL (4.20-5.60); RED CELL DISTRI WIDTH 14.3 % (11.5-15.5)
[2021-07-20 06:01] LABS: ANION GAP 9 (6-22 (CALC)); BUN 14 mg/dL (8-23); BUN/CREATININE RATIO 25 (12-20 (CALC)); CARBON DIOXIDE 22 mmol/l (22-30); CHLORIDE 110 mmol/l (95-108); CREATININE 0.5 mg/dL (0.5-1.0); GFR > 60 ML/MIN (>=60 (CALC)); GFR FOR AFR.AMER. > 60 ML/MIN (>=60 (CALC)); MAGNESIUM 1.6 mg/dL (1.6-2.3); SODIUM 137 mmol/l (137-146)
[2021-07-20 06:03] LABS: POTASSIUM 4.1 mmol/l (3.5-5.1)
[2021-07-20 06:04] LABS: HEMATOCRIT 25.5 % (37.0-47.0); HEMOGLOBIN 7.8 g/dl (12.0-16.0)
[2021-07-20] MEDS ORDERED: PROTONIX40 M2 PO (07:06)
[2021-07-20] MEDS ORDERED: (None)1 % (07:07)
[2021-07-20] MEDS ORDERED: [UNRECOGNIZED DRUG - OTHER] (07:08)
[2021-07-20 23:20] LABS: HEMATOCRIT 26.5 % (37.0-47.0); HEMOGLOBIN 7.8 g/dl (12.0-16.0)
[2021-07-21] VITALS (18 sets, daily range): BP systolic 111–156; BP diastolic 40–69
[2021-07-21 05:56] LABS: HEMATOCRIT 24.6 % (37.0-47.0); HEMOGLOBIN 7.3 g/dl (12.0-16.0); MEAN CELL VOLUME 106.5 fL CALC (80.0-100.0); MEAN CORPUSCULAR HGB 31.6 pG CALC (26.0-32.0); MEAN CORPUSCULAR HGB CONC 29.7 g/dL CAL (32.0-36.0); RED BLOOD COUNT 2.31 mill/uL (4.20-5.60); RED CELL DISTRI WIDTH 14.4 % (11.5-15.5)
[2021-07-21 06:05] LABS: ANION GAP 9 (6-22 (CALC)); BUN 13 mg/dL (8-23); BUN/CREATININE RATIO 24 (12-20 (CALC)); CARBON DIOXIDE 24 mmol/l (22-30); CHLORIDE 113 mmol/l (95-108); CREATININE 0.6 mg/dL (0.5-1.0); GFR > 60 ML/MIN (>=60 (CALC)); GFR FOR AFR.AMER. > 60 ML/MIN (>=60 (CALC)); POTASSIUM 4.2 mmol/l (3.5-5.1); SODIUM 142 mmol/l (137-146)
[2021-07-22 05:09] LABS: HEMATOCRIT 27.7 % (37.0-47.0); HEMOGLOBIN 8.2 g/dl (12.0-16.0); MEAN CELL VOLUME 106.5 fL CALC (80.0-100.0); MEAN CORPUSCULAR HGB 31.5 pG CALC (26.0-32.0); MEAN CORPUSCULAR HGB CONC 29.6 g/dL CAL (32.0-36.0); RED BLOOD COUNT 2.6 mill/uL (4.20-5.60); RED CELL DISTRI WIDTH 14.3 % (11.5-15.5)
[2021-07-22 05:28] LABS: ANION GAP 11 (6-22 (CALC)); BUN 14 mg/dL (8-23); BUN/CREATININE RATIO 27 (12-20 (CALC)); CARBON DIOXIDE 25 mmol/l (22-30); CHLORIDE 112 mmol/l (95-108); CREATININE 0.5 mg/dL (0.5-1.0); GFR > 60 ML/MIN (>=60 (CALC)); GFR FOR AFR.AMER. > 60 ML/MIN (>=60 (CALC)); MAGNESIUM 1.7 mg/dL (1.6-2.3); POTASSIUM 3.7 mmol/l (3.5-5.1); SODIUM 144 mmol/l (137-146)
[2021-07-22 07:12] VITALS: BP 119/69
[2021-07-22 10:10] VITALS: BP 105/54
[2021-07-22 10:11] VITALS: BP 89/48
[2021-07-22] MEDS ORDERED: DOXYCYCLINE100 MG PO (14:01)
[2021-07-22] MEDS ORDERED: MEDDOSEPAK PO (14:01)
[2021-07-22 14:31] VITALS: BP 85/49
[2021-07-22 19:00] VITALS: BP 121/51
[2021-07-22 19:24] VITALS: BP 121/51
== END 2021-07-22 23:35 | disposition home health service (06) | DRG 193 ==
LOC: ED 13:42 → ED-I 15:40 → ED 15:57 → ICU 15:58 → MS2 07-21 14:28
PROVIDERS: ADMIT Internal Medicine; ATTEND Hospitalist
PROC: 5A09357 Assistance with Respiratory Ventilation, Less than 24 Consecutive Hours, Continuous Positive Airway Pressure (ICD-10-PCS; principal; 2021-07-19)
PROC: 0T9B70Z Drainage of Bladder with Drainage Device, Via Natural or Artificial Opening (ICD-10-PCS; 2021-07-20)
DX: J18.9 Pneumonia, unspecified organism (principal); J96.21 Acute and chronic respiratory failure with hypoxia; Z68.1 Body mass index [BMI] 19.9 or less, adult; N39.0 Urinary tract infection, site not specified; I69.354 Hemiplegia and hemiparesis following cerebral infarction affecting left non-dominant side; K92.1 Melena; J43.9 Emphysema, unspecified; I10 Essential (primary) hypertension; R63.6 Underweight; I73.9 Peripheral vascular disease, unspecified; K21.9 Gastro-esophageal reflux disease without esophagitis; F41.9 Anxiety disorder, unspecified; F32.A Depression, unspecified; H54.61 Unqualified visual loss, right eye, normal vision left eye; F17.200 Nicotine dependence, unspecified, uncomplicated; B96.20 Unspecified Escherichia coli [E. coli] as the cause of diseases classified elsewhere; Z88.0 Allergy status to penicillin; Z99.81 Dependence on supplemental oxygen; Z89.611 Acquired absence of right leg above knee; Z79.02 Long term (current) use of antithrombotics/antiplatelets; Z79.82 Long term (current) use of aspirin; Z20.822 Contact with and (suspected) exposure to COVID-19
CPT/HCPCS: J1650; J1956; J2060; S0073; S0164

== ENCOUNTER 2021-08-18 00:22 | Inpatient (IN) | payer MEDICARE, MEDICAID ==
[~2021-08-18] VITALS: Ht 152.4 cm; Wt 39.0 kg
[2021-08-18] VITALS (28 sets, daily range): BP systolic 75–130; BP diastolic 31–81
[~2021-08-18 00:22] MED LIST changes: +(None)1 %; +MEDDOSEPAK PO; +[UNRECOGNIZED DRUG - OTHER]
--- NOTE | 2021-08-18 00:25 | NUR ---
PT TAKEN TO ROOM 6 VIA W/C
[2021-08-18 01:03] LABS: IMMATURE GRANULOCYTES 0.4 % (0.0-5.0); MEAN CELL VOLUME 100.8 fL CALC (80.0-100.0); MEAN CORPUSCULAR HGB CONC 30.7 g/dL CAL (32.0-36.0); NEUT# 5.3 thou/uL (2.00-7.15); RED BLOOD COUNT 3.71 mill/uL (4.20-5.60); RED CELL DISTRI WIDTH 12.8 % (11.5-15.5)
[2021-08-18 01:05] LABS: HEMATOCRIT 37.4 % (37.0-47.0); HEMOGLOBIN 11.5 g/dl (12.0-16.0)
[2021-08-18 01:11] LABS: ALBUMIN 4.2 g/dL (3.2-5.0); ALKALINE PHOSPHATASE 79 u/l (38-126); ANION GAP 12 (6-22 (CALC)); BUN 16 mg/dL (8-23); BUN/CREATININE RATIO 25 (12-20 (CALC)); CARBON DIOXIDE 28 mmol/l (22-30); CHLORIDE 103 mmol/l (95-108); CREATININE 0.7 mg/dL (0.5-1.0); GFR FOR AFR.AMER. > 60 ML/MIN (>=60 (CALC)); GFR OTHER RACES > 60 ML/MIN (>=60 (CALC)); SGOT/AST 23 u/l (9-36); SODIUM 139 mmol/l (137-146); TOTAL PROTEIN 6.7 g/dL (6.3-8.2)
[2021-08-18 01:23] LABS: MYOGLOBIN 38 ng/mL (0 - 62)
--- NOTE | 2021-08-18 01:41 | NUR ---
REPORT CALLED TO SHONDA IN ICU
--- NOTE | 2021-08-18 01:59 | NUR ---
PT TRANSFERRED TO ICU
--- NOTE | 2021-08-18 02:00 | NUR ---
RECEIVED PATIENT FROM ED AND REPORT FROM RN MIRTA. PATIENT ARRIVED TO ICU ON BIPAP AT THIS TIME ACCOMPAINED BY RESPIRATORY THERAPY BIPAP SETTING ARE 16/8 21% O2 AT THIS TIME. PATIENT PROFESSOR SCULPTURE DONE SEE INTERVENTIONS. PATIENT LUNG TERESA ARE DIMINISHED IN ALL TERESA. PATIENT GRASP ARE WEAK AND LOWER LEFT PEDAL PULSES ARE WEAK. PATIENT PRESENTS TO UNIT WITH A RIGHT BELOW THE KNEE AMPUTAIONS AND STUMP HAS NO SWELLING AND OR OPEN AREAS. PATIENT DOES PRESENT WITH STAGE 1 PRESSURE ULCER ON RIGHT BUTTOCKS LOWER CHEEK AND PICTURES TAKE AND PLACED ON CHART. WOUND COVERED WITH AQUACEL SPONGE PAD AT THIS TIME. PATIENT IS ALERT AND ORIENTED AND DENIES PAIN AT THIS TIME. BP UPON ARRIVAL IS 94/60. PATIENT STATES THAT SHE NORMALLY CARRIES A LOW BLOOD PRESSURE. PATIENT WT IS 39 KG. SIDERAILS ARE UP AND PATIENT ADVISED ON ROOM SAFETY AND CALL LIGHT. SLAT BASKET MAKER HELPER MACHINE READING SINUS RHYTHM AND HR OF 91 WILL CONTINUE TO MONITOR.
[2021-08-18 05:53] LABS: URINE BILIRUBIN - DIPSTICK NEGATIVE (NEGATIVE); URINE BLOOD DIPSTICK MODERATE (NEGATIVE); URINE CLARITY SL CLOUDY; URINE COLOR YELLOW; URINE GLUCOSE - DIPSTICK NEGATIVE (NEGATIVE); URINE KETONE NEGATIVE (NEGATIVE); URINE LEUK ESTERASE TRACE (Negative); URINE NITRITE - DIPSTICK NEGATIVE (Negative); URINE PROTEIN - DIPSTICK NEGATIVE (NEG-TRACE); URINE SPECIFIC GRAVITY >=1.030; URINE UROBILINOGEN - DIPSTICK 0.2 E.U./dL (0.2)
[2021-08-18 06:02] LABS: URINE BACTERIA FEW hpf; URINE SQUAMOUS EPITHELIAL CELL FEW EPI/hpf (0-FEW)
--- NOTE | 2021-08-18 07:46 | NUR ---
PT SEEN AWAKE,ALERT, ORIENTED X 3. PT ON BIPAP UPON INITIAL INTERACTION, HAS SINCE BEEN SWITCHED TO NASAL CANNULA BY RESP THERAPISTS. NO SOB AT THIS TIME.
--- NOTE | 2021-08-18 08:51 | NUR ---
Patient is screened for PT intervention and may benefit if medical agrees
--- NOTE | 2021-08-18 10:28 | NUR ---
PT ON RA, SATS SEEN IN UPPER 90s. NO DISTRESS. PT ON AND OFF BEDPAN NEEDED. DR MOTLEY HAS SEEN PT THIS MORNING.
--- NOTE | 2021-08-18 12:00 | NUR ---
PT SEEN BY PHYSICAL THERAPY THIS MORNING, SEEN TO BE QUITE WEAK, NEEDING ASSIST TO TRANSFER TO CHAIR.
--- NOTE | 2021-08-18 18:13 | NUR ---
PT TO BEDPAN, REQUIRED BED CHANGE AFTER. PT WITH MANY SMALL NEEDS, CALLS OFTEN. NO DISTRESS, NO CHANGE IN STATUS.
--- NOTE | 2021-08-18 20:00 | NUR ---
PT ALERT AND ORIENTED. FOLLOWING COMMANDS. PTS BODY LOOKS TO BE QUITE CONTRACTGED. PT EXPLAINES HER HISTORY OF HAVING A STROKE. PTS RIGHT LEG AMPUTATED. LEFT LEG SIGNIFICANTLY WEAK AND ELEVATED ON A PILLOW, WITH PADDING UNDER HER HEAL. PT DOES HAVE REDNESS ON HER COCCYX, DISCUSSED PLAN TO TURN PT OVERNIGHT TO PREVENT ANY FURTHER BREAKDOWN. PT WAS ON ROOM AIR, UPON ARRIVAL BUT SHE BECAME MORE DROWSY SHE DID D'SAT, SO PT WAS PLACED BACK ON 2L NC WHILE SLEEPING. PT REFUSED BIPAP OVERNIGHT PER RESIRATORY THERAPIST AT BEDSIDE. PTS VITAL SIGNS ARE WITHIN NORMAL LIMITS. PT REPORTS PAIN 4 OUT OF 10, BUT WILL WAIT FOR HER EVENING SCHEDULED PAIN MEDICATION. PTS CALL LIGHT AND PERSONAL POSESSIONS ARE WITHIN REACH. PT BEING CLOSELY MONITORED.
--- NOTE | 2021-08-18 20:38 | NUR ---
DECREASED PT OXYGEN FROM 2L TO 1L.
[2021-08-19] VITALS (19 sets, daily range): BP systolic 104–176; BP diastolic 48–75
[2021-08-19 05:28] LABS: HEMOGLOBIN 9.6 g/dl (12.0-16.0); MEAN CELL VOLUME 100.3 fL CALC (80.0-100.0); MEAN CORPUSCULAR HGB 30.9 pG CALC (26.0-32.0); MEAN CORPUSCULAR HGB CONC 30.8 g/dL CAL (32.0-36.0); RED BLOOD COUNT 3.11 mill/uL (4.20-5.60)
[2021-08-19 05:30] LABS: HEMATOCRIT 31.2 % (37.0-47.0)
[2021-08-19 05:47] LABS: ANION GAP 10 (6-22 (CALC)); BUN 11 mg/dL (8-23); BUN/CREATININE RATIO 19 (12-20 (CALC)); CARBON DIOXIDE 25 mmol/l (22-30); CHLORIDE 109 mmol/l (95-108); CREATININE 0.6 mg/dL (0.5-1.0); GFR FOR AFR.AMER. > 60 ML/MIN (>=60 (CALC)); GFR OTHER RACES > 60 ML/MIN (>=60 (CALC)); MAGNESIUM 1.4 mg/dL (1.6-2.3); POTASSIUM 3.6 mmol/l (3.5-5.1); SODIUM 140 mmol/l (137-146)
--- NOTE | 2021-08-19 07:30 | NUR ---
JUAN CARE GIVEN, REPOSITIONED, R. HEEL DRESSING AND BOOT CHANGED/REPLACED, CALL MARTINEZ IN REACH.
--- NOTE | 2021-08-19 11:55 | NUR ---
REPORT RECEIVED FROM LAZARUS THORPE AWAKE ALERT AND ORIENTED RESTING IN BED, NO C/O DISCOMFORT, IVF INFUSING TO SITE IN LEFT WRIST, ALL NEEDS ADDRESSED, CALL MARTINEZ IN REACH AND BANDAR LOCKED IN LOWEST POSITION.
--- NOTE | 2021-08-19 14:17 | NUR ---
Pt seen this pm for treatment. She was resting in bed, A&Ox3. She performed AROM to LUE, AAROM to RLE, Active hip abd/add, and hip extension isometrics on RLE. She was able to roll side to side indep, mod assist to scoot in supine and sitting. Pt moved supine to sit over edge of bed towards L side with mod assist of upper body. Sitting x 5 min on edge of bed with CGA (pt unable to plant L foot on floor well due to bed height). Sit to supine with mod assist and max assist to move up in bed. Pt reported she does sit pivot transfer to w/c at home but it has been some time since she was in her chair. BP142/66 to 120/56, she denied dizziness with sitting, HR 84-85, 02sats 93% A- Pt with overall weakness and decrease ROM on L. [facility] 10 ECF P- will continue to follow, will try OOb to w/c if possible next visit. P- Will attempt OO
--- NOTE | 2021-08-19 15:34 | NUR ---
PT ALERT AND ORIENTED, INFORMED OF TRANSFER TO MED-SURG UNIT AND STATES UNDERSTANDING. TRANSPORTED VIA BED TO ROOM 176, BEDSIDE REPORT GIVEN TO RN THEO, JUAN CARE ADMINISTERED, PT SETTLED IN ROOM WITH CALL MARTINEZ IN REACH AND BED LOCKED IN LOWEST POSITION.
--- NOTE | 2021-08-19 16:14 | NUR ---
RECEIVED PATIENT FROM ICU AT 1515, STABLE, NO SIGNS OR SYMPTOMS OF DISTRESS NOTED OR VOICED.
--- NOTE | 2021-08-19 20:00 | NUR ---
PT IN BED AWAKE, PT STATES NO PAIN, NO DISTRESS NOTED, BED IN LOW POSITION, CALL LIGHT IN REACH
[2021-08-20] VITALS (9 sets, daily range): BP systolic 117–165; BP diastolic 50–68
--- NOTE | 2021-08-20 05:07 | NUR ---
PT IN BED ASLEEP NO OVERNIGHT EVENTS, BED IN LOW POSITION, CALL LIGHT IN REACH
--- NOTE | 2021-08-20 07:00 | NUR ---
PT REPORT RECIEVED FROM INVOICE CLERK
--- NOTE | 2021-08-20 08:00 | NUR ---
PT RESTING IN SEMI FOWLERS POSITON. A/OX3 ASSESSMENT AND VS COMPLETED. HEART RHYTHM NORMAL RESPIRATIONS EVEN AND UNLABORED ON 2L NC . BOWEL SOUNDS HYPOACTIVE. IV SITE NOTED AND FLUSHED. PT DENIES OPEN WOUNDS . RIGHT BELOW KNEE AMPUTATION.NOTED. PT DENIES ADDITIONAL NEEDS AT THE TIME ALL SAFETY PRECAUTIONS IN PLACE.
[2021-08-20 08:08] LABS: HEMATOCRIT 32.9 % (37.0-47.0); HEMOGLOBIN 10.2 g/dl (12.0-16.0); MEAN CELL VOLUME 100.3 fL CALC (80.0-100.0); MEAN CORPUSCULAR HGB 31.1 pG CALC (26.0-32.0); RED BLOOD COUNT 3.28 mill/uL (4.20-5.60); RED CELL DISTRI WIDTH 13.1 % (11.5-15.5)
[2021-08-20 08:23] LABS: ANION GAP 9 (6-22 (CALC)); BUN 13 mg/dL (8-23); BUN/CREATININE RATIO 27 (12-20 (CALC)); CARBON DIOXIDE 24 mmol/l (22-30); CHLORIDE 109 mmol/l (95-108); CREATININE 0.5 mg/dL (0.5-1.0); GFR FOR AFR.AMER. > 60 ML/MIN (>=60 (CALC)); GFR OTHER RACES > 60 ML/MIN (>=60 (CALC)); POTASSIUM 3.7 mmol/l (3.5-5.1); SODIUM 139 mmol/l (137-146)
[2021-08-20 08:32] LABS: MAGNESIUM 1.9 mg/dL (1.6-2.3)
--- NOTE | 2021-08-20 12:00 | NUR ---
PT RESTING IN SEMI FOWLERS POSITION. PT DENIES ADDITIONAL NEEDS ALL SAFETY PREAUTIONS IN PLACE. UNKNOWN INSTRUCTIONS FOR DC
--- NOTE | 2021-08-20 13:51 | NUR ---
Pt seen this am for treatment. She was resting in bed reading. She is alert and 0 x 3. A/AAROM to LUE with gentle passive stretch of hand and elbow done. Hip isometric extension on R and A/AROM to LLE with gentle stretch of hamstring and calf. Pt able to roll side to side indep, with bed rail. Supine to sit towards L side (side she moves at home) with mod assist required. Sitting balance static with BA/min assist. Sit pivot transfer to w/c with mod/max assist x1. Pt tolerated OOB in w/c x 1.5 hours. She returned to bed with same assist. She requested Bed hancock and was left on hancock with NETWORK SOLUTIONS ARCHITECT aware, call singh/tray/phone in reach. BP 130/51, 02 sats 93% on 02 HR 76. A- Pt cooperative with treatment but requires assist with supine to sit and to w/c. [facility] 12 ECF P- Will continue to follow until d/antoinette
[2021-08-20] MEDS ORDERED: DOXYCYCLINE HY100 MG PO (14:13)
[2021-08-20] MEDS ORDERED: PREDNISONE10 MG PO (14:16)
[2021-08-20] MEDS ORDERED: VALIUM2 MG PO (15:05)
[2021-08-20] MEDS ORDERED: PERCOCET 5/321 COMBO PO (15:05)
--- NOTE | 2021-08-20 16:10 | NUR ---
PT RESTING IN LOW FOWLERS POSITION. PT C/O ROOM BEING HOT. PT TO BE DC TOMMORROW.
--- NOTE | 2021-08-20 20:00 | NUR ---
RECEIVED REPORT FROM DAY NURSE PATIENT RESTING IN BED WATCHING TV, HOOKED ON O2 @ 2LPM VIA NC, BREATHING UNLABORED, GEN BODY PAIN PS 09/07 WILL MEDICATE, HAS IV G20 ON RFA AND G 20 ON JESSI, PATENT FLUSHES WELL, ON TELEMETRY SR 84, ACTIVE BOWEL SOUNDS, CLEAR LUNG SOUNDS CALL LIGHT IN REACH.
--- NOTE | 2021-08-21 | NUR ---
PATIENT AWAKE AT THIS TIME, WATCHING TV, NOT IN DISTRESS, CALL LIGHT IN REACH.
[2021-08-21 03:34] VITALS: BP 174/76
[2021-08-21 05:36] LABS: HEMATOCRIT 30.5 % (37.0-47.0); HEMOGLOBIN 9.4 g/dl (12.0-16.0); MEAN CORPUSCULAR HGB 31.4 pG CALC (26.0-32.0); MEAN CORPUSCULAR HGB CONC 30.8 g/dL CAL (32.0-36.0); RED BLOOD COUNT 2.99 mill/uL (4.20-5.60); RED CELL DISTRI WIDTH 13.3 % (11.5-15.5)
[2021-08-21 05:49] LABS: ANION GAP 8 (6-22 (CALC)); BUN 23 mg/dL (8-23); BUN/CREATININE RATIO 41 (12-20 (CALC)); CARBON DIOXIDE 26 mmol/l (22-30); CHLORIDE 109 mmol/l (95-108); CREATININE 0.6 mg/dL (0.5-1.0); GFR FOR AFR.AMER. > 60 ML/MIN (>=60 (CALC)); GFR OTHER RACES > 60 ML/MIN (>=60 (CALC)); MAGNESIUM 1.6 mg/dL (1.6-2.3); POTASSIUM 3.7 mmol/l (3.5-5.1); SODIUM 139 mmol/l (137-146)
[2021-08-21 06:20] VITALS: BP 143/57
--- NOTE | 2021-08-21 07:00 | NUR ---
PT REPORT FROM BALLOON MAKER
--- NOTE | 2021-08-21 08:00 | NUR ---
SHON PT. HAS DONE ASSESSMENT AND VS COMPLETED. MEDICATIONS GIVEN BY SHON . PT STABLE TO BE DC RO REHAB AT 12PM ALL SAFETY PRECAUTIONS IN PLACE
--- NOTE | 2021-08-21 08:32 | NUR ---
REPORT RECEIVED FROM FINGERNAIL SCULPTOR RN. PATIENT RESTING IN BED WITH EYES CLOSE IN LOW SEMI-DUARTE'S POSITION. ASSESSMENT COMPLEDTED. PATIENT IS A&O AND IS ABLE TO MAKE NEEDS KNOWN. PATIENT COMPLAINED OF PAIN AT A 6/10, MEDICATED. BED IN LOWEST POSITION, BEDSIDE TABLE AND CALL LIGHT WITHIN REACH.
--- NOTE | 2021-08-21 09:21 | NUR ---
GAVE SOLUMEDROL TO PATIENT VIA IM INJECTION PER MONTEZ GRANT. INJECTION GIVEN TO RIGHT DELTOID, PATIENT TOLERATED WELL.
[2021-08-21 10:18] VITALS: BP 119/50
--- NOTE | 2021-08-21 12:20 | NUR ---
Discharge instructions given. Patient verbalizes understanding of same. Discharged in stable condition via Medical Transport to REHAB with staff. All belongings sent with pt. PATIENT TELE MONITOR REMOVED. REMOVED IV SITES.
--- NOTE | 2021-08-21 13:34 | NUR ---
TRIED CONTACTING [facility] SEVERAL TIMES TO GIVE REPORT ON PATIENT. I WAS TRANSFERED TO THE NURSE FOR REPORT BUT NOBODY PICKED UP, I LEFT MY NAME AND NUMBER FOR THEM TO CONTACT ME. WILL TRY CALLING AGAIN.
--- NOTE | 2021-08-21 14:08 | NUR ---
I WAS ABLE TO GIVE REPORT TO NURSE AT [facility] [place] FOR [facility] JUSTICE AT THIS TIME.
== END 2021-08-21 12:15 | DRG 190 ==
LOC: ED 00:22 → ICU 01:28 → MS2 08-19 15:09
PROVIDERS: Family Medicine; Hospitalist; ADMIT Internal Medicine; ATTEND Internal Medicine
PROC: 5A09357 Assistance with Respiratory Ventilation, Less than 24 Consecutive Hours, Continuous Positive Airway Pressure (ICD-10-PCS; principal; 2021-08-18)
DX: J44.1 Chronic obstructive pulmonary disease with (acute) exacerbation (principal); J96.21 Acute and chronic respiratory failure with hypoxia; J96.22 Acute and chronic respiratory failure with hypercapnia; Z68.1 Body mass index [BMI] 19.9 or less, adult; I69.354 Hemiplegia and hemiparesis following cerebral infarction affecting left non-dominant side; I10 Essential (primary) hypertension; R63.6 Underweight; I73.9 Peripheral vascular disease, unspecified; I65.29 Occlusion and stenosis of unspecified carotid artery; K21.9 Gastro-esophageal reflux disease without esophagitis; H54.61 Unqualified visual loss, right eye, normal vision left eye; F41.9 Anxiety disorder, unspecified; F32.A Depression, unspecified; M62.442 Contracture of muscle, left hand; F17.200 Nicotine dependence, unspecified, uncomplicated; Z99.81 Dependence on supplemental oxygen; Z85.41 Personal history of malignant neoplasm of cervix uteri; Z87.440 Personal history of urinary (tract) infections; Z79.82 Long term (current) use of aspirin; Z79.02 Long term (current) use of antithrombotics/antiplatelets; Z95.820 Peripheral vascular angioplasty status with implants and grafts; Z89.611 Acquired absence of right leg above knee; Z20.822 Contact with and (suspected) exposure to COVID-19
CPT/HCPCS: J1650; J3475

== ENCOUNTER 2021-10-05 12:45 | Emergency (ER) | payer MEDICARE, MEDICAID ==
[2021-10-05] VITALS (7 sets, daily range): BP systolic 44–130; BP diastolic 21–76
[~2021-10-05] VITALS: Ht 152.4 cm; Wt 40.9 kg
[~2021-10-05 12:45] MED LIST changes: +DOXYCYCLINE HY100 MG PO; +PERCOCET 5/321 COMBO PO
[2021-10-05 13:48] LABS: HEMATOCRIT 27.5 % (37.0-47.0); HEMOGLOBIN 9.1 g/dl (12.0-16.0); IMMATURE GRANULOCYTES 0.4 % (0.0-5.0); MEAN CORPUSCULAR HGB 29.4 pG CALC (26.0-32.0); MEAN CORPUSCULAR HGB CONC 33.1 g/dL CAL (32.0-36.0); NEUT# 18.8 thou/uL (2.00-7.15); RED BLOOD COUNT 3.09 mill/uL (4.20-5.60); RED CELL DISTRI WIDTH 15.6 % (11.5-15.5)
[2021-10-05 13:56] LABS: ALKALINE PHOSPHATASE 107 u/l (38-126); BUN 15 mg/dL (8-23); BUN/CREATININE RATIO 23 (12-20 (CALC)); CARBON DIOXIDE 28 mmol/l (22-30); CHLORIDE 99 mmol/l (95-108); CREATININE 0.6 mg/dL (0.5-1.0); GFR FOR AFR.AMER. > 60 ML/MIN (>=60 (CALC)); GFR OTHER RACES > 60 ML/MIN (>=60 (CALC)); SODIUM 136 mmol/l (137-146); TOTAL PROTEIN 6.1 g/dL (6.3-8.2)
[2021-10-05 14:08] LABS: ALBUMIN 3.2 g/dL (3.2-5.0); ANION GAP 11 (6-22 (CALC)); BILIRUBIN, TOTAL 0.4 mg/dL (0.0-1.4); POTASSIUM 2.1 mmol/l (3.5-5.1); SGOT/AST 325 u/l (9-36)
== END 2021-10-05 15:01 | disposition short-term general hospital (02) ==
LOC: ED 12:45
PROVIDERS: Family Medicine
PROC: 05HM33Z Insertion of Infusion Device into Right Internal Jugular Vein, Percutaneous Approach (ICD-10-PCS; principal; 2021-10-05)
DX: I73.9 Peripheral vascular disease, unspecified (principal); I10 Essential (primary) hypertension; J44.9 Chronic obstructive pulmonary disease, unspecified; R63.6 Underweight; K21.9 Gastro-esophageal reflux disease without esophagitis; F41.9 Anxiety disorder, unspecified; F32.A Depression, unspecified; H54.61 Unqualified visual loss, right eye, normal vision left eye; Z99.81 Dependence on supplemental oxygen; Z85.41 Personal history of malignant neoplasm of cervix uteri; Z89.611 Acquired absence of right leg above knee; Z87.440 Personal history of urinary (tract) infections; Z86.73 Personal history of transient ischemic attack (TIA), and cerebral infarction without residual deficits
CPT/HCPCS: J1644; J3475

== ENCOUNTER 2022-03-07 15:20 | Emergency (ER) | payer MEDICARE, MEDICAID ==
[~2022-03-07] VITALS: Ht 152.4 cm; Wt 63.0 kg
[2022-03-07 17:29] LABS: BASO% 0.3 % (0-3); EOS% 0.2 % (0-8); HEMATOCRIT 32.9 % (37.0-47.0); HEMOGLOBIN 10.8 g/dl (12.0-16.0); IMMATURE GRANULOCYTES 2.2 % (0.0-5.0); LYMPH% 6.8 % (15-41); MEAN CELL VOLUME 90.6 fL CALC (80.0-100.0); MEAN CORPUSCULAR HGB 29.8 pG CALC (26.0-32.0); MEAN CORPUSCULAR HGB CONC 32.8 g/dL CAL (32.0-36.0); MONO% 3.1 % (2-13); NEUT# 13.06 thou/uL (2.00-7.15); NEUT% 87.4 % (42-76); RED BLOOD COUNT 3.63 mill/uL (4.20-5.60); RED CELL DISTRI WIDTH 15.3 % (11.5-15.5)
[2022-03-07 17:44] LABS: ALBUMIN 3.9 g/dL (3.2-5.0); ALKALINE PHOSPHATASE 118 u/l (38-126); BUN 24 mg/dL (8-23); BUN/CREATININE RATIO 52 (12-20 (CALC)); CHLORIDE 96 mmol/l (95-108); CREATININE 0.5 mg/dL (0.5-1.0); GFR FOR AFR.AMER. > 60 ML/MIN (>=60 (CALC)); GFR OTHER RACES > 60 ML/MIN (>=60 (CALC)); SGOT/AST 25 u/l (9-36); TOTAL PROTEIN 6.7 g/dL (6.3-8.2)
[2022-03-07 17:45] LABS: ANION GAP 10 (6-22 (CALC)); BILIRUBIN, TOTAL 0.2 mg/dL (0.0-1.4); CARBON DIOXIDE 31 mmol/l (22-30); POTASSIUM 4.4 mmol/l (3.5-5.1); SODIUM 133 mmol/l (137-146)
[2022-03-07 21:04] VITALS: BP 135/65
== END 2022-03-07 21:29 | disposition home or self-care (01) ==
LOC: ED 15:20
PROVIDERS: Family Medicine
DX: R07.9 Chest pain, unspecified (principal); I10 Essential (primary) hypertension; R63.6 Underweight; I73.9 Peripheral vascular disease, unspecified; K21.9 Gastro-esophageal reflux disease without esophagitis; F41.9 Anxiety disorder, unspecified; F32.A Depression, unspecified; Z99.81 Dependence on supplemental oxygen; Z89.611 Acquired absence of right leg above knee; Z86.73 Personal history of transient ischemic attack (TIA), and cerebral infarction without residual deficits

== ENCOUNTER 2022-03-31 10:01 | Emergency (ER) | payer MEDICARE, MEDICAID ==
[~2022-03-31] VITALS: Ht 152.4 cm; Wt 35.4 kg
[2022-03-31] VITALS (21 sets, daily range): BP systolic 96–142; BP diastolic 41–77
[2022-03-31 11:00] LABS: BASO% 0.6 % (0-3); EOS% 1.2 % (0-8); HEMATOCRIT 33.2 % (37.0-47.0); HEMOGLOBIN 10.4 g/dl (12.0-16.0); IMMATURE GRANULOCYTES 2.1 % (0.0-5.0); LYMPH% 21.5 % (15-41); MEAN CORPUSCULAR HGB 28.2 pG CALC (26.0-32.0); MEAN CORPUSCULAR HGB CONC 31.3 g/dL CAL (32.0-36.0); MONO% 5.3 % (2-13); NEUT# 7.25 thou/uL (2.00-7.15); NEUT% 69.3 % (42-76); RED BLOOD COUNT 3.69 mill/uL (4.20-5.60)
[2022-03-31 11:11] LABS: ALKALINE PHOSPHATASE 108 u/l (38-126); BILIRUBIN, TOTAL 0.2 mg/dL (0.02-1.3); BUN 15 mg/dL (8-23); BUN/CREATININE RATIO 23 (12-20 (CALC)); CHLORIDE 103 mmol/l (95-108); CREATININE 0.6 mg/dL (0.5-1.0); GFR FOR AFR.AMER. > 60 ML/MIN (>=60 (CALC)); GFR OTHER RACES > 60 ML/MIN (>=60 (CALC)); SGOT/AST 40 u/l (9-36); SODIUM 134 mmol/l (137-146); TOTAL PROTEIN 7.5 g/dL (6.3-8.2)
[2022-03-31 11:20] LABS: ANION GAP 12 (6-22 (CALC)); CARBON DIOXIDE 22 mmol/l (22-30); POTASSIUM 2.9 mmol/l (3.5-5.1)
[2022-03-31 14:57] LABS: URINE BILIRUBIN - DIPSTICK NEGATIVE (NEGATIVE); URINE BLOOD DIPSTICK TRACE-INTACT (NEGATIVE); URINE COLOR YELLOW; URINE GLUCOSE - DIPSTICK NEGATIVE (NEGATIVE); URINE KETONE NEGATIVE (NEGATIVE); URINE LEUK ESTERASE TRACE (NEGATIVE); URINE PROTEIN - DIPSTICK NEGATIVE (NEG-TRACE); URINE UROBILINOGEN - DIPSTICK 0.2 E.U./dL (0.2)
[2022-03-31 15:00] LABS: URINE NITRITE - DIPSTICK NEGATIVE (Negative)
[2022-03-31] MEDS ORDERED: MAGNESIUM200 MG PO (17:17)
[2022-03-31] MEDS ORDERED: POTASSIUM CHLO20 ME1 PO (17:17)
== END 2022-03-31 17:15 | disposition home or self-care (01) ==
LOC: ED 10:01
PROVIDERS: Emergency Medicine
DX: E87.6 Hypokalemia (principal); E83.42 Hypomagnesemia; I10 Essential (primary) hypertension; J44.9 Chronic obstructive pulmonary disease, unspecified; R63.6 Underweight; I73.9 Peripheral vascular disease, unspecified; K21.9 Gastro-esophageal reflux disease without esophagitis; F41.9 Anxiety disorder, unspecified; F32.A Depression, unspecified; H54.61 Unqualified visual loss, right eye, normal vision left eye; I69.398 Other sequelae of cerebral infarction; L89.90 Pressure ulcer of unspecified site, unspecified stage; Z87.440 Personal history of urinary (tract) infections; Z99.81 Dependence on supplemental oxygen; Z85.41 Personal history of malignant neoplasm of cervix uteri; Z89.612 Acquired absence of left leg above knee; Z89.611 Acquired absence of right leg above knee

== ENCOUNTER 2022-06-12 06:07 | Observation (INO) | payer MEDICARE, MEDICAID ==
[~2022-06-12] VITALS: Ht 152.4 cm; Wt 33.2 kg
[2022-06-12] VITALS (24 sets, daily range): BP systolic 93–139; BP diastolic 40–84
[~2022-06-12 06:07] MED LIST changes: +MAGNESIUM200 MG PO; +POTASSIUM CHLO20 ME1 PO
[2022-06-12 06:37] LABS: BASO% 1.1 % (0-3); EOS% 3.6 % (0-8); HEMOGLOBIN 12.3 g/dl (12.0-16.0); IMMATURE GRANULOCYTES 0.2 % (0.0-5.0); LYMPH% 11.4 % (15-41); MEAN CELL VOLUME 91.9 fL CALC (80.0-100.0); MEAN CORPUSCULAR HGB 27.5 pG CALC (26.0-32.0); MEAN CORPUSCULAR HGB CONC 29.9 g/dL CAL (32.0-36.0); MONO% 2.6 % (2-13); NEUT# 17.91 thou/uL (2.00-7.15); NEUT% 81.1 % (42-76); RED BLOOD COUNT 4.47 mill/uL (4.20-5.60); RED CELL DISTRI WIDTH 14.8 % (11.5-15.5)
[2022-06-12 06:38] LABS: HEMATOCRIT 41.1 % (37.0-47.0)
[2022-06-12 06:55] LABS: ALBUMIN 4.5 g/dL (3.2-5.0); ALKALINE PHOSPHATASE 133 u/l (38-126); ANION GAP 15 (6-22 (CALC)); BILIRUBIN, TOTAL 0.2 mg/dL (0.02-1.3); BUN 12 mg/dL (8-23); BUN/CREATININE RATIO 18 (12-20 (CALC)); CHLORIDE 99 mmol/l (95-108); CREATININE 0.6 mg/dL (0.5-1.0); GFR FOR AFR.AMER. > 60 ML/MIN (>=60 (CALC)); GFR OTHER RACES > 60 ML/MIN (>=60 (CALC)); POTASSIUM 3.2 mmol/l (3.5-5.1); SGOT/AST 29 u/l (9-36); SODIUM 140 mmol/l (137-146); TOTAL PROTEIN 8.6 g/dL (6.3-8.2)
[2022-06-12 06:58] LABS: CARBON DIOXIDE 29 mmol/l (22-30)
[2022-06-12] MEDS ORDERED: FOLIC ACID1 MG PO (10:24)
[2022-06-12] MEDS ORDERED: PREDNISONE20 MG PO (10:25)
[2022-06-12] MEDS ORDERED: FUROSEMIDE20 MG PO (10:25)
[2022-06-12] MEDS ORDERED: OXYCODONE5 M1 PO (10:26)
[2022-06-12] MEDS ORDERED: DIAZEPAM2 M1 PO (16:57)
[2022-06-12] MEDS ORDERED: BUSPAR10 M1 PO (16:57)
[2022-06-12] MEDS ORDERED: SERTRALINE50 MG PO (16:59)
[2022-06-13] VITALS (9 sets, daily range): BP systolic 96–125; BP diastolic 45–54
[2022-06-13 05:51] LABS: BASO% 0.9 % (0-3); IMMATURE GRANULOCYTES 0.2 % (0.0-5.0); LYMPH% 6.8 % (15-41); MEAN CELL VOLUME 92.7 fL CALC (80.0-100.0); MEAN CORPUSCULAR HGB 27.8 pG CALC (26.0-32.0); MONO% 1.7 % (2-13); NEUT# 14.58 thou/uL (2.00-7.15); NEUT% 90.4 % (42-76); RED BLOOD COUNT 3.31 mill/uL (4.20-5.60); RED CELL DISTRI WIDTH 15.2 % (11.5-15.5)
[2022-06-13 06:06] LABS: HEMATOCRIT 30.7 % (37.0-47.0); HEMOGLOBIN 9.2 g/dl (12.0-16.0)
[2022-06-13 06:09] LABS: ALKALINE PHOSPHATASE 85 u/l (38-126); ANION GAP 12 (6-22 (CALC)); BUN 13 mg/dL (8-23); BUN/CREATININE RATIO 23 (12-20 (CALC)); CARBON DIOXIDE 25 mmol/l (22-30); CHLORIDE 102 mmol/l (95-108); CREATININE 0.6 mg/dL (0.5-1.0); GFR FOR AFR.AMER. > 60 ML/MIN (>=60 (CALC)); GFR OTHER RACES > 60 ML/MIN (>=60 (CALC)); MAGNESIUM 1.5 mg/dL (1.6-2.3); POTASSIUM 3.1 mmol/l (3.5-5.1); SGOT/AST 26 u/l (9-36); SODIUM 137 mmol/l (137-146)
[2022-06-13 06:10] LABS: ALBUMIN 3.4 g/dL (3.2-5.0)
[2022-06-13 10:08] LABS: URINE BILIRUBIN - DIPSTICK NEGATIVE (NEGATIVE); URINE BLOOD DIPSTICK TRACE-LYSED (NEGATIVE); URINE COLOR YELLOW; URINE GLUCOSE - DIPSTICK NEGATIVE (NEGATIVE); URINE KETONE NEGATIVE (NEGATIVE); URINE LEUK ESTERASE TRACE (NEGATIVE); URINE NITRITE - DIPSTICK NEGATIVE (Negative); URINE PH 6.5 (4.5-8.0); URINE PROTEIN - DIPSTICK NEGATIVE (NEG-TRACE); URINE UROBILINOGEN - DIPSTICK 0.2 E.U./dL (0.2)
[2022-06-14] VITALS (8 sets, daily range): BP systolic 96–140; BP diastolic 42–60
[2022-06-14 05:14] LABS: BASO% 0.5 % (0-3); HEMATOCRIT 30.5 % (37.0-47.0); HEMOGLOBIN 9.2 g/dl (12.0-16.0); IMMATURE GRANULOCYTES 0.6 % (0.0-5.0); LYMPH% 5.1 % (15-41); MEAN CELL VOLUME 91.3 fL CALC (80.0-100.0); MEAN CORPUSCULAR HGB 27.5 pG CALC (26.0-32.0); MEAN CORPUSCULAR HGB CONC 30.2 g/dL CAL (32.0-36.0); MONO% 3.1 % (2-13); NEUT# 16.35 thou/uL (2.00-7.15); NEUT% 90.7 % (42-76); RED BLOOD COUNT 3.34 mill/uL (4.20-5.60); RED CELL DISTRI WIDTH 15.4 % (11.5-15.5)
[2022-06-14 05:30] LABS: ANION GAP 11 (6-22 (CALC)); BUN 15 mg/dL (8-23); BUN/CREATININE RATIO 21 (12-20 (CALC)); CARBON DIOXIDE 26 mmol/l (22-30); CHLORIDE 103 mmol/l (95-108); CREATININE 0.7 mg/dL (0.5-1.0); GFR FOR AFR.AMER. > 60 ML/MIN (>=60 (CALC)); GFR OTHER RACES > 60 ML/MIN (>=60 (CALC)); MAGNESIUM 1.8 mg/dL (1.6-2.3); SODIUM 136 mmol/l (137-146)
[2022-06-14 05:32] LABS: POTASSIUM 3.8 mmol/l (3.5-5.1)
[2022-06-15 04:13] VITALS: BP 123/50
[2022-06-15 05:16] LABS: BASO% 0.1 % (0-3); HEMATOCRIT 29.9 % (37.0-47.0); HEMOGLOBIN 9.1 g/dl (12.0-16.0); IMMATURE GRANULOCYTES 0.6 % (0.0-5.0); LYMPH% 9.4 % (15-41); MEAN CORPUSCULAR HGB CONC 30.4 g/dL CAL (32.0-36.0); MONO% 6.1 % (2-13); NEUT# 11.46 thou/uL (2.00-7.15); NEUT% 83.8 % (42-76); RED BLOOD COUNT 3.25 mill/uL (4.20-5.60); RED CELL DISTRI WIDTH 15.7 % (11.5-15.5)
[2022-06-15 05:34] LABS: ANION GAP 11 (6-22 (CALC)); BUN 17 mg/dL (8-23); BUN/CREATININE RATIO 24 (12-20 (CALC)); CARBON DIOXIDE 29 mmol/l (22-30); CHLORIDE 99 mmol/l (95-108); CREATININE 0.7 mg/dL (0.5-1.0); GFR FOR AFR.AMER. > 60 ML/MIN (>=60 (CALC)); GFR OTHER RACES > 60 ML/MIN (>=60 (CALC)); MAGNESIUM 1.6 mg/dL (1.6-2.3); POTASSIUM 3.8 mmol/l (3.5-5.1); SODIUM 136 mmol/l (137-146)
[2022-06-15 06:49] VITALS: BP 156/66
[2022-06-15] MEDS ORDERED: PREDNISONE10 MG PO (11:15)
[2022-06-15] MEDS ORDERED: LEVOFLOXACIN500MG PO (11:15)
[2022-06-15 11:22] VITALS: BP 123/51
[2022-06-15 15:30] VITALS: BP 113/55
== END 2022-06-15 18:15 | disposition home or self-care (01) ==
LOC: ED 06:07 → ED-I 08:05 → ED 09:45 → MS2 09:46
PROVIDERS: Emergency Medicine; Internal Medicine; Nurse Practitioner Family; ADMIT Internal Medicine; ATTEND Internal Medicine
DX: J44.1 Chronic obstructive pulmonary disease with (acute) exacerbation (principal); J96.22 Acute and chronic respiratory failure with hypercapnia; E87.6 Hypokalemia; I10 Essential (primary) hypertension; I73.9 Peripheral vascular disease, unspecified; K21.9 Gastro-esophageal reflux disease without esophagitis; F41.9 Anxiety disorder, unspecified; F32.A Depression, unspecified; H40.9 Unspecified glaucoma; H54.61 Unqualified visual loss, right eye, normal vision left eye; Z99.81 Dependence on supplemental oxygen; Z89.611 Acquired absence of right leg above knee; Z89.612 Acquired absence of left leg above knee; Z86.73 Personal history of transient ischemic attack (TIA), and cerebral infarction without residual deficits; Z85.41 Personal history of malignant neoplasm of cervix uteri; Z87.440 Personal history of urinary (tract) infections; Z95.820 Peripheral vascular angioplasty status with implants and grafts; Z20.822 Contact with and (suspected) exposure to COVID-19
CPT/HCPCS: J1650; J1956; J3475

== ENCOUNTER 2022-07-25 20:44 | Emergency (ER) | payer MEDICARE, MEDICAID ==
[2022-07-25] VITALS (21 sets, daily range): BP systolic 44–203; BP diastolic 28–105
[~2022-07-25] VITALS: Ht 152.4 cm; Wt 36.2 kg
[~2022-07-25 20:44] MED LIST changes: +BUSPAR10 M1 PO; +DIAZEPAM2 M1 PO; +FOLIC ACID1 MG PO; +FUROSEMIDE20 MG PO; +LEVOFLOXACIN500MG PO; +OXYCODONE5 M1 PO; +PREDNISONE20 MG PO; +SERTRALINE50 MG PO
[2022-07-25 21:30] LABS: BASO% 1.2 % (0-3); EOS% 4.2 % (0-8); IMMATURE GRANULOCYTES 0.5 % (0.0-5.0); LYMPH% 24.5 % (15-41); MEAN CELL VOLUME 93.3 fL CALC (80.0-100.0); MEAN CORPUSCULAR HGB 28.8 pG CALC (26.0-32.0); MEAN CORPUSCULAR HGB CONC 30.8 g/dL CAL (32.0-36.0); MONO% 6.9 % (2-13); NEUT# 6.86 thou/uL (2.00-7.15); NEUT% 62.7 % (42-76); RED BLOOD COUNT 2.4 mill/uL (4.20-5.60); RED CELL DISTRI WIDTH 14.6 % (11.5-15.5)
[2022-07-25 21:31] LABS: HEMATOCRIT 22.4 % (37.0-47.0)
[2022-07-25 21:32] LABS: HEMOGLOBIN 6.9 g/dl (12.0-16.0)
[2022-07-25 21:35] LABS: ALBUMIN 3.7 g/dL (3.2-5.0); ALKALINE PHOSPHATASE 99 u/l (38-126); ANION GAP 11 (6-22 (CALC)); BUN 13 mg/dL (8-23); BUN/CREATININE RATIO 20 (12-20 (CALC)); CARBON DIOXIDE 25 mmol/l (22-30); CHLORIDE 102 mmol/l (95-108); CREATININE 0.7 mg/dL (0.5-1.0); GFR FOR AFR.AMER. > 60 ML/MIN (>=60 (CALC)); GFR OTHER RACES > 60 ML/MIN (>=60 (CALC)); POTASSIUM 3.7 mmol/l (3.5-5.1); SGOT/AST 29 u/l (9-36); SODIUM 135 mmol/l (137-146); TOTAL PROTEIN 6.6 g/dL (6.3-8.2)
[2022-07-25 21:39] LABS: PROTHROMBIN TIME 9.7 SECONDS (9.0-12.5)
[2022-07-26] VITALS: BP 148/67
[2022-07-26 00:29] VITALS: BP 144/61
[2022-07-26 00:30] VITALS: BP 142/64
[2022-07-26 00:56] VITALS: BP 142/64
== END 2022-07-26 00:59 | disposition short-term general hospital (02) ==
LOC: ED 20:44
PROVIDERS: Emergency Medicine
PROC: 30233N1 Transfusion of Nonautologous Red Blood Cells into Peripheral Vein, Percutaneous Approach (ICD-10-PCS; principal; 2022-07-25)
PROC: 30233N1 Transfusion of Nonautologous Red Blood Cells into Peripheral Vein, Percutaneous Approach (ICD-10-PCS; 2022-07-25)
DX: K92.2 Gastrointestinal hemorrhage, unspecified (principal); I10 Essential (primary) hypertension; I73.9 Peripheral vascular disease, unspecified; J44.9 Chronic obstructive pulmonary disease, unspecified; F41.9 Anxiety disorder, unspecified; F32.A Depression, unspecified; H54.61 Unqualified visual loss, right eye, normal vision left eye; Z99.81 Dependence on supplemental oxygen; Z87.440 Personal history of urinary (tract) infections; Z95.820 Peripheral vascular angioplasty status with implants and grafts; Z86.73 Personal history of transient ischemic attack (TIA), and cerebral infarction without residual deficits; Z89.611 Acquired absence of right leg above knee; Z89.612 Acquired absence of left leg above knee
CPT/HCPCS: P9016; S0164

== ENCOUNTER 2022-08-31 20:52 | Inpatient (IN) | payer MEDICARE, MEDICAID ==
[~2022-08-31] VITALS: Ht 152.4 cm; Wt 39.3 kg
[2022-08-31] VITALS (9 sets, daily range): BP systolic 47–123; BP diastolic 18–78
[~2022-08-31 20:52] MED LIST changes: -BUSPAR10 M1 PO; +BUSPAR5 MG PO
[2022-08-31 23:05] LABS: BASO% 0.6 % (0-3); EOS% 1.9 % (0-8); IMMATURE GRANULOCYTES 1.5 % (0.0-5.0); LYMPH% 5.7 % (15-41); MEAN CELL VOLUME 91.2 fL CALC (80.0-100.0); MEAN CORPUSCULAR HGB 27.5 pG CALC (26.0-32.0); MEAN CORPUSCULAR HGB CONC 30.2 g/dL CAL (32.0-36.0); MONO% 3.5 % (2-13); NEUT# 20.68 thou/uL (2.00-7.15); NEUT% 86.8 % (42-76); RED BLOOD COUNT 4.32 mill/uL (4.20-5.60); RED CELL DISTRI WIDTH 15.6 % (11.5-15.5)
[2022-08-31 23:15] LABS: HEMATOCRIT 39.4 % (37.0-47.0); HEMOGLOBIN 11.9 g/dl (12.0-16.0)
[2022-08-31 23:19] LABS: D-DIMER 4.21 mg/L (0.19-0.60)
[2022-08-31 23:21] LABS: PROTHROMBIN TIME 9.6 SECONDS (9.0-12.5)
[2022-08-31 23:43] LABS: ALKALINE PHOSPHATASE 136 u/l (38-126); BUN 20 mg/dL (8-23); BUN/CREATININE RATIO 25 (12-20 (CALC)); CARBON DIOXIDE 28 mmol/l (22-30); CHLORIDE 104 mmol/l (95-108); CREATININE 0.8 mg/dL (0.5-1.0); GFR FOR AFR.AMER. > 60 ML/MIN (>=60 (CALC)); GFR OTHER RACES > 60 ML/MIN (>=60 (CALC)); POTASSIUM 4.2 mmol/l (3.5-5.1); SGOT/AST 40 u/l (9-36)
[2022-08-31 23:44] LABS: ALBUMIN 4.6 g/dL (3.2-5.0); ANION GAP 14 (6-22 (CALC)); BILIRUBIN, TOTAL 0.3 mg/dL (0.02-1.3); SODIUM 142 mmol/l (137-146); TOTAL PROTEIN 8.6 g/dL (6.3-8.2)
[2022-09-01] VITALS (65 sets, daily range): BP systolic 67–123; BP diastolic 43–78
[2022-09-01] MEDS ORDERED: BUSPAR5 MG PO (12:56)
[2022-09-01] MEDS ORDERED: GABAPENTIN100 MG PO (12:59)
[2022-09-01] MEDS ORDERED: REMERON15 MG PO (13:01)
[2022-09-01 18:23] LABS: URINE BILIRUBIN - DIPSTICK NEGATIVE (NEGATIVE); URINE BLOOD DIPSTICK NEGATIVE (NEGATIVE); URINE COLOR YELLOW; URINE GLUCOSE - DIPSTICK NEGATIVE (NEGATIVE); URINE KETONE NEGATIVE (NEGATIVE); URINE LEUK ESTERASE NEGATIVE (NEGATIVE); URINE PROTEIN - DIPSTICK 30 mg/dL (NEG-TRACE); URINE UROBILINOGEN - DIPSTICK 0.2 E.U./dL (0.2)
[2022-09-01 18:25] LABS: URINE NITRITE - DIPSTICK NEGATIVE (Negative)
[2022-09-01 18:31] LABS: URINE RBC 0-2 RBC/hpf (0-5); URINE SQUAMOUS EPITHELIAL CELL FEW EPI/hpf (0-FEW); URINE WBC 0-2 WBC/hpf (0-5)
[2022-09-02] VITALS (33 sets, daily range): BP systolic 66–179; BP diastolic 41–120
[2022-09-02 05:44] LABS: MEAN CELL VOLUME 89.6 fL CALC (80.0-100.0); MEAN CORPUSCULAR HGB 28.1 pG CALC (26.0-32.0); MEAN CORPUSCULAR HGB CONC 31.4 g/dL CAL (32.0-36.0); RED BLOOD COUNT 3.45 mill/uL (4.20-5.60)
[2022-09-02 05:51] LABS: HEMATOCRIT 30.9 % (37.0-47.0); HEMOGLOBIN 9.7 g/dl (12.0-16.0)
[2022-09-02 05:55] LABS: ALKALINE PHOSPHATASE 99 u/l (38-126); BUN 23 mg/dL (8-23); BUN/CREATININE RATIO 30 (12-20 (CALC)); CHLORIDE 110 mmol/l (95-108); CREATININE 0.8 mg/dL (0.5-1.0); GFR FOR AFR.AMER. > 60 ML/MIN (>=60 (CALC)); GFR OTHER RACES > 60 ML/MIN (>=60 (CALC)); MAGNESIUM 1.7 mg/dL (1.6-2.3); SGOT/AST 27 u/l (9-36); SODIUM 140 mmol/l (137-146)
[2022-09-02 06:06] LABS: ALBUMIN 3.2 g/dL (3.2-5.0); ANION GAP 13 (6-22 (CALC)); BILIRUBIN, TOTAL 0.1 mg/dL (0.02-1.3); CARBON DIOXIDE 21 mmol/l (22-30); TOTAL PROTEIN 5.7 g/dL (6.3-8.2)
[2022-09-03] VITALS (25 sets, daily range): BP systolic 91–167; BP diastolic 53–113
[2022-09-03 06:24] LABS: HEMATOCRIT 33.3 % (37.0-47.0); MEAN CELL VOLUME 90.5 fL CALC (80.0-100.0); MEAN CORPUSCULAR HGB 27.2 pG CALC (26.0-32.0); RED BLOOD COUNT 3.68 mill/uL (4.20-5.60); RED CELL DISTRI WIDTH 16.1 % (11.5-15.5)
[2022-09-03 06:41] LABS: ALBUMIN 3.3 g/dL (3.2-5.0); ALKALINE PHOSPHATASE 89 u/l (38-126); ANION GAP 12 (6-22 (CALC)); BUN 23 mg/dL (8-23); BUN/CREATININE RATIO 34 (12-20 (CALC)); CARBON DIOXIDE 21 mmol/l (22-30); CHLORIDE 113 mmol/l (95-108); CREATININE 0.7 mg/dL (0.5-1.0); GFR FOR AFR.AMER. > 60 ML/MIN (>=60 (CALC)); GFR OTHER RACES > 60 ML/MIN (>=60 (CALC)); MAGNESIUM 1.7 mg/dL (1.6-2.3); POTASSIUM 4.7 mmol/l (3.5-5.1); SGOT/AST 23 u/l (9-36); SODIUM 141 mmol/l (137-146); TOTAL PROTEIN 5.8 g/dL (6.3-8.2)
[2022-09-03 06:43] LABS: BILIRUBIN, TOTAL 0.2 mg/dL (0.02-1.3)
[2022-09-03] MEDS ORDERED: PREDNISONE10 MG PO (08:30)
[2022-09-03] MEDS ORDERED: VIBRAMYCIN100 M2 PO (08:31)
== END 2022-09-03 16:35 | DRG 190 ==
LOC: ED 20:52 → ICU 09-01 00:56 → ED-I 09-01 00:56 → ICU 09-01 06:14
PROVIDERS: Emergency Medicine; ADMIT Internal Medicine; ATTEND Internal Medicine
PROC: 5A09357 Assistance with Respiratory Ventilation, Less than 24 Consecutive Hours, Continuous Positive Airway Pressure (ICD-10-PCS; principal; 2022-08-31)
DX: J44.1 Chronic obstructive pulmonary disease with (acute) exacerbation (principal); J96.21 Acute and chronic respiratory failure with hypoxia; J96.22 Acute and chronic respiratory failure with hypercapnia; Z68.1 Body mass index [BMI] 19.9 or less, adult; I69.354 Hemiplegia and hemiparesis following cerebral infarction affecting left non-dominant side; I24.8 Other forms of acute ischemic heart disease; J44.0 Chronic obstructive pulmonary disease with (acute) lower respiratory infection; J20.9 Acute bronchitis, unspecified; I10 Essential (primary) hypertension; R63.6 Underweight; I73.9 Peripheral vascular disease, unspecified; I25.10 Atherosclerotic heart disease of native coronary artery without angina pectoris; F41.9 Anxiety disorder, unspecified; H40.9 Unspecified glaucoma; K21.9 Gastro-esophageal reflux disease without esophagitis; F32.A Depression, unspecified; H54.61 Unqualified visual loss, right eye, normal vision left eye; M62.422 Contracture of muscle, left upper arm; Z99.81 Dependence on supplemental oxygen; Z87.440 Personal history of urinary (tract) infections; Z89.612 Acquired absence of left leg above knee; Z89.611 Acquired absence of right leg above knee
CPT/HCPCS: J1650; Q9967

== ENCOUNTER 2022-10-23 21:18 | Inpatient (IN) | payer MEDICARE, MEDICAID ==
[~2022-10-23] VITALS: Ht 152.4 cm; Wt 43.8 kg
[2022-10-23] VITALS (10 sets, daily range): BP systolic 102–142; BP diastolic 45–112
[~2022-10-23 21:18] MED LIST changes: +GABAPENTIN100 MG PO; +REMERON15 MG PO
--- NOTE | 2022-10-23 21:38 | NUR ---
PT ARRIVED VIA EMS STRETCHER IN STABLE CONDITION WITH C/O INTERMITTENT ABD PAIN AND RECTAL BLEEDING. DURING MD EXAM, ABD SOFT, NON TENDER, BS ACTIVE. RECTAL EXAM DONE BY DR VIZCARRA, PT TOLERATED WELL. HEM POSITIVE.
--- NOTE | 2022-10-23 22:30 | NUR ---
PT RESTING IN BED. RESP EVEN AND UNLABORED. NO DISTRESS NOTED. DENIES PAIN. VSS. INFORMED PT AGAIN OF PLAN OF CARE AND CONTINUED WAIT TIME AND SHE VERBALIZED UNDERSTANDING. CALL LIGHT IN REACH.
[2022-10-23 22:31] LABS: BASO% 0.9 % (0-3); MEAN CORPUSCULAR HGB 28.4 pG CALC (26.0-32.0); MEAN CORPUSCULAR HGB CONC 29.4 g/dL CAL (32.0-36.0); MONO% 3.8 % (2-13); NEUT# 16.23 thou/uL (2.00-7.15); NEUT% 76.3 % (42-76); RED BLOOD COUNT 2.36 mill/uL (4.20-5.60); RED CELL DISTRI WIDTH 17.1 % (11.5-15.5)
[2022-10-23 22:35] LABS: HEMATOCRIT 22.8 % (37.0-47.0); HEMOGLOBIN 6.7 g/dl (12.0-16.0); MEAN CELL VOLUME 96.6 fL CALC (80.0-100.0)
[2022-10-23 22:41] LABS: ALBUMIN 3.7 g/dL (3.2-5.0); ALKALINE PHOSPHATASE 115 u/l (38-126); ANION GAP 17 (6-22 (CALC)); BUN 31 mg/dL (8-23); BUN/CREATININE RATIO 36 (12-20 (CALC)); CARBON DIOXIDE 21 mmol/l (22-30); CHLORIDE 104 mmol/l (95-108); CREATININE 0.9 mg/dL (0.5-1.0); GFR FOR AFR.AMER. > 60 ML/MIN (>=60 (CALC)); GFR OTHER RACES > 60 ML/MIN (>=60 (CALC)); POTASSIUM 4.7 mmol/l (3.5-5.1); SGOT/AST 33 u/l (9-36); SODIUM 137 mmol/l (137-146); TOTAL PROTEIN 6.4 g/dL (6.3-8.2)
[2022-10-23 22:43] LABS: BILIRUBIN, TOTAL 0.4 mg/dL (0.02-1.3)
[2022-10-23 22:46] LABS: ACT PARTIAL THROMBO TIME 18.1 SECONDS (20.0-32.5); PROTHROMBIN TIME 9.8 SECONDS (9.0-12.5)
--- NOTE | 2022-10-23 23:30 | NUR ---
PT RESTING IN BED WATCHING TV. RESP REMAIN EVEN AND UNLABORED. NO DISTRESS NOTED. ALERT AND TALKATIVE. VSS. BLOOD INFUSING W/ NO ADVERSE REACTION. CALL LIGHT IN REACH.
--- NOTE | 2022-10-23 23:36 | NUR ---
BLOOD STARTED AT THIS TIME.
[2022-10-24] VITALS (106 sets, daily range): BP systolic 71–153; BP diastolic 34–113
--- NOTE | 2022-10-24 00:45 | NUR ---
REPORT CALLED TO TESS PHAN
--- NOTE | 2022-10-24 00:50 | NUR ---
REPORT CALLED TO ICU. PATIENT OT BE ADMITTED INTO BED 6
--- NOTE | 2022-10-24 01:00 | NUR ---
PATIENT TRANSPORTED TO FLOOR VIA STRETCHER BY WRITTER.
--- NOTE | 2022-10-24 01:04 | NUR ---
PT TRANSPORTED TO ICU VIA STRETCHER IN STABLE CONDITION
--- NOTE | 2022-10-24 01:10 | NUR ---
PATIENT ARRIVED TO THE UNIT ACCOMPANIED BY ER NURSE. SHE WAS TRANSPORTED VIA STRETCHER. BLOOD NOTED RUNNING AT THIS TIME. SHE IS A EMANUEL AKA. SHE IS ALERT AND ORIENTED X3. VSS AT THIS TIME. PROTONIX NOTED ORDERED FOR PATIENT. IV ATTEMPT X2 BY 2 NURSE WITH NO SUCCESS. SHE HAS A 22 IN THE RIGHT THUMB WITH BLOOD RUNNING AT THIS TIME. HER LUNGS ARE CLEAR. BOWEL SOUNDS ACTIVE. STAGE 2 NOTED TO COCCYX, CAMERA NOT WORKING AT THIS TIME. MEPILEX BOARDER APPLIED FOR PROTECTION. WILL CONTINUE TO MONITOR.
--- NOTE | 2022-10-24 02:57 | NUR ---
SECOND UNIT OF BLOOD STARTED.
--- NOTE | 2022-10-24 04:00 | NUR ---
PATIENT SLEEPING, NO ACUTE DISTRESS NOTED.
--- NOTE | 2022-10-24 05:31 | NUR ---
2ND UNIT OF BLOOD COMPLETED. NO SIGNS OR SYMPTOMS OF REACTION NOTED.
--- NOTE | 2022-10-24 07:15 | NUR ---
Report given by retail shift supervisor nurse. Patient resting with eyes closed. Resp even and unlabored. no s/s of distress noted. fall and saftey precautions in place. plan of care reviewed. patient informed to call with any questions or concerns.
--- NOTE | 2022-10-24 07:47 | NUR ---
blood glucose performed
[2022-10-24 09:15] LABS: BASO% 0.8 % (0-3); EOS% 7.4 % (0-8); IMMATURE GRANULOCYTES 0.9 % (0.0-5.0); MEAN CORPUSCULAR HGB 29.6 pG CALC (26.0-32.0); MEAN CORPUSCULAR HGB CONC 32.7 g/dL CAL (32.0-36.0); MONO% 4.8 % (2-13); NEUT# 8.69 thou/uL (2.00-7.15); NEUT% 70.1 % (42-76); RED BLOOD COUNT 3.58 mill/uL (4.20-5.60); RED CELL DISTRI WIDTH 15.4 % (11.5-15.5)
[2022-10-24 09:17] LABS: HEMATOCRIT 32.4 % (37.0-47.0); HEMOGLOBIN 10.6 g/dl (12.0-16.0); MEAN CELL VOLUME 90.5 fL CALC (80.0-100.0)
[2022-10-24 09:34] LABS: ANION GAP 10 (6-22 (CALC)); BUN 25 mg/dL (8-23); BUN/CREATININE RATIO 36 (12-20 (CALC)); CARBON DIOXIDE 21 mmol/l (22-30); CHLORIDE 111 mmol/l (95-108); CREATININE 0.7 mg/dL (0.5-1.0); GFR FOR AFR.AMER. > 60 ML/MIN (>=60 (CALC)); GFR OTHER RACES > 60 ML/MIN (>=60 (CALC)); POTASSIUM 4.3 mmol/l (3.5-5.1); SODIUM 139 mmol/l (137-146)
--- NOTE | 2022-10-24 12:01 | NUR ---
FULL LIEN CHANGE, BED BATH, AND MOUTH CARE PERFORMED
--- NOTE | 2022-10-24 12:18 | NUR ---
CHANGED PULSE OX SEVERAL TIMES. UNABLE TO MAINTAIN A GOOD WAVE AND READING. PATIENT HAD BM, LOOSE AND DARK RED/BROWN
--- NOTE | 2022-10-24 12:31 | NUR ---
SON UPDATED PER PATIENT REQUEST
--- NOTE | 2022-10-24 15:01 | NUR ---
PATIENT UP TO THE RECLINER
--- NOTE | 2022-10-24 15:30 | NUR ---
patient requesting a breathing treatment. MD called and left message. waiting for a return call
[2022-10-24 16:23] LABS: HEMATOCRIT 30.2 % (37.0-47.0); HEMOGLOBIN 9.8 g/dl (12.0-16.0); MEAN CELL VOLUME 91.5 fL CALC (80.0-100.0); MEAN CORPUSCULAR HGB 29.7 pG CALC (26.0-32.0); MEAN CORPUSCULAR HGB CONC 32.5 g/dL CAL (32.0-36.0); RED BLOOD COUNT 3.3 mill/uL (4.20-5.60); RED CELL DISTRI WIDTH 15.9 % (11.5-15.5)
--- NOTE | 2022-10-24 17:03 | NUR ---
PATIENT HAD A SMALL BM, DARK BROWN AND RED TINGED. NEW MEPLIEX PLACED ON BOTTOM
--- NOTE | 2022-10-24 19:00 | NUR ---
REPORT RECEIVED FROM OFF GOING NURSE.
--- NOTE | 2022-10-24 20:00 | NUR ---
PATIENT NOTED LYING IN BED WITH NO ACUTE DISTRESS NOTED. ASSESSMENT COMPLETED. SHE IS ALERT AND ORIENTED X3. VSS. LUNGS CLEAR TO AUSCULTATION. BOWEL SOUNDS ACTIVE IN ALL FOUR QUADS. SHE HAS A STAGE 2 ON HER RIGHT BUTTOCK. SHE IS A EMANUEL AKA. SHE IS CONTINENT OF B&B. SHE WAS PLACED ON BED DIAZ X2. SHE HAD BROWN WITH RED TINGED LOOSE STOOLS. SHE WAS NOTED MESSING WITH IV IN LEFT THUMB, IT IS NOTED LEAKING. LINE HAD TO BE PULLED. VEGETABLE GRADER WAS CALLED AFTER IV ATTEMPT. # 24 WAS PLACED IN RIGHT HAND. BED LOCKED, IN LOW POSITION, CALL LIGHT WITHIN REACH. WILL CONTINUE TO MONITOR.
--- NOTE | 2022-10-24 22:00 | NUR ---
PATIENT LYING IN BED RESTING WITH NO ACUTE DISTRESS NOTED. BED LOCKED, IN LOW POSITION. WILL CONTINUE TO MONITOR.
[2022-10-25] VITALS (45 sets, daily range): BP systolic 109–157; BP diastolic 40–133
--- NOTE | 2022-10-25 | NUR ---
PATIENT LYING IN BED WITH NO ACUTE DISTRESS NOTED AT THIS TIME. BED LOCKED, IN LOW POSOITION. CALL LIGHT WITHIN REACH.
--- NOTE | 2022-10-25 02:00 | NUR ---
PATIENT SLEEPING. WILL CONTINUE TO MONITOR.
--- NOTE | 2022-10-25 04:00 | NUR ---
PATIENT SLEEPING, NO ACUTE DISTRESS NOTED,.
--- NOTE | 2022-10-25 06:00 | NUR ---
PATIENT LYING IN BED RESTING COMFORTABLY WITH NO ACUTE DISTRESS NOTED. BED LOCKED IN LOW POSITION. CALL LIGHT WITHIN REACH.
[2022-10-25 06:40] LABS: EOS% 12.1 % (0-8); HEMOGLOBIN 10.5 g/dl (12.0-16.0); LYMPH% 17.1 % (15-41); MEAN CELL VOLUME 95.4 fL CALC (80.0-100.0); MEAN CORPUSCULAR HGB 30.3 pG CALC (26.0-32.0); MEAN CORPUSCULAR HGB CONC 31.8 g/dL CAL (32.0-36.0); MONO% 6.5 % (2-13); NEUT# 6.37 thou/uL (2.00-7.15); NEUT% 62.3 % (42-76); RED BLOOD COUNT 3.46 mill/uL (4.20-5.60); RED CELL DISTRI WIDTH 16.3 % (11.5-15.5)
[2022-10-25 06:56] LABS: ALBUMIN 2.6 g/dL (3.2-5.0); ALKALINE PHOSPHATASE 67 u/l (38-126); ANION GAP 11 (6-22 (CALC)); BILIRUBIN, TOTAL 0.6 mg/dL (0.02-1.3); BUN 17 mg/dL (8-23); BUN/CREATININE RATIO 28 (12-20 (CALC)); CARBON DIOXIDE 18 mmol/l (22-30); CHLORIDE 117 mmol/l (95-108); CREATININE 0.6 mg/dL (0.5-1.0); GFR FOR AFR.AMER. > 60 ML/MIN (>=60 (CALC)); GFR OTHER RACES > 60 ML/MIN (>=60 (CALC)); MAGNESIUM 1.8 mg/dL (1.6-2.3); POTASSIUM 4.7 mmol/l (3.5-5.1); SGOT/AST 35 u/l (9-36); SODIUM 141 mmol/l (137-146); TOTAL PROTEIN 5.2 g/dL (6.3-8.2)
--- NOTE | 2022-10-25 07:20 | NUR ---
pt resting in bed with eyes closed; no apparent distress noted; easily aroused to verbal stimuli; assessment completed at this time; pt alert and oriented; denies pain at present; no n/v noted; resp even and unlabored; lungs clear; skin color wnl; o2 per nc at 2L; dry tester operator helper cough noted; hr reg; sr on monitor; abd soft with bs hyperactive; no bm noted per headline writer; no urine to inspect at this time; #24 patent to rh with ivf infusing without complication; no redness or edema noted at site; repositioned to left side; open area noted to right buttock; plan of care/ am meds explained; call light within reach; will continue to monitor
--- NOTE | 2022-10-25 08:18 | NUR ---
assisted on bedpan; voiding without complication; pericare provided; iv intact and patent; sr on monitor; repositioned; will continue to monitor
--- NOTE | 2022-10-25 08:45 | NUR ---
Dr Cuenca present at bedside to assess pt and discuss plan of care
--- NOTE | 2022-10-25 10:20 | NUR ---
resting in bed with eyes closed; no apparent distress noted; sr on monitor; o2 per nc; easily aroused; repositioned; will continue to monitor
--- NOTE | 2022-10-25 11:00 | NUR ---
placed on bedpan; pericare provided; repositioned to right side
--- NOTE | 2022-10-25 12:05 | NUR ---
awake in bed eating lunch; no apparent distress noted; pt offers no complaints; iv intact and patent; sr on monitor; o2 per nc; call light within reach; will continue to monitor
--- NOTE | 2022-10-25 13:47 | NUR ---
assisted on bedpan; LG dark red stool noted with numerous blood clots; pericare per proposal manager writer; will continue to monitor
--- NOTE | 2022-10-25 14:00 | NUR ---
Dr Cuenca on unit; made aware of LG dark red stool with numerous clots noted; orders to be placed; pt awake in bed; offers no complaints; iv intact and patent; repositioned to left side; oral fluids provided as per request; bath and linen change provided; will continue to monitor
--- NOTE | 2022-10-25 16:00 | NUR ---
awake in bed; dressing to distal lfa noted with purulent drainage; site irrigated, cover with non adhesive telf and secured with kerlix; sr on monitor; iv intact and patent; call light within reach; will continue to monitor
--- NOTE | 2022-10-25 17:39 | NUR ---
awake in bed; lab at bedside; no apparent distress noted; pt offers no complaints; repositioned for meal; sr on monitor; call light within reach
[2022-10-25 18:29] LABS: HEMATOCRIT 28.5 % (37.0-47.0); HEMOGLOBIN 8.9 g/dl (12.0-16.0); MEAN CELL VOLUME 93.4 fL CALC (80.0-100.0); MEAN CORPUSCULAR HGB 29.2 pG CALC (26.0-32.0); MEAN CORPUSCULAR HGB CONC 31.2 g/dL CAL (32.0-36.0); RED BLOOD COUNT 3.05 mill/uL (4.20-5.60); RED CELL DISTRI WIDTH 15.8 % (11.5-15.5)
--- NOTE | 2022-10-25 19:00 | NUR ---
REPORT RECEIVED FROM OFF GOING NURSE.
--- NOTE | 2022-10-25 20:00 | NUR ---
PATIENT UP IN BED WITH NO ACUTE DISTRESS NOTED. HOB ELEVATED. SHE IS A/O X3. LUNGS CLEAR/ DIMINISHED. BOWEL SOUNDS ACTIVE. STAGE 2 NOTED TO RIGHT BUTTOCK. PATIENT REPOSITIONED TO OFF LOAD PRESSURE TO THAT AREA. SHE HAS BRUISING TO BUE. LEFT ARM CONTRACTURE NOTED, WITH SKIN TEARS. SHE IS A EMANUEL AKA. BED LOCKED, IN LOW POSITION, CALL LIG WITHIN REACH. WILL CONTINUE TO MONITOR.
--- NOTE | 2022-10-25 22:00 | NUR ---
PATIENT NOTED IN BED WITH HOB ELEVATED. SHE IS ON BED DIAZ EVERY 20-30 MIN. NO ACUTE DISTRESS NOTED. BED LOCKED, IN LOW POSITION, CALL LIGHT WITHIN REACH. WILL CONTINUE TO MONITOR.
--- NOTE | 2022-10-26 | NUR ---
PATIENT UP IN BED WITH NO ACUTE DISTRESS NOTED.
--- NOTE | 2022-10-26 02:00 | NUR ---
PATIENT SITTING UP IN BED WITH NO ACUTE DISTRESS NOTED. BED LOCKED, IN LOW POSITION. WILL CONTINUE TO MONITOR.
[2022-10-26 03:00] VITALS: BP 135/58
--- NOTE | 2022-10-26 04:00 | NUR ---
PATIENT SLEEPING. NO ACUTE DISTRESS NOTED. CALL LIGHT WITHIN REACH. WILL CONTINUE TO MONITOR.
--- NOTE | 2022-10-26 06:00 | NUR ---
PATIENT LYING IN BED WITH NO ACUTE DISTRESS NOTE. CALL LIGHT WITHIN REACH.
[2022-10-26 06:01] VITALS: BP 150/120
[2022-10-26 06:19] LABS: HEMATOCRIT 25.9 % (37.0-47.0); HEMOGLOBIN 8.2 g/dl (12.0-16.0); MEAN CELL VOLUME 93.8 fL CALC (80.0-100.0); MEAN CORPUSCULAR HGB 29.7 pG CALC (26.0-32.0); MEAN CORPUSCULAR HGB CONC 31.7 g/dL CAL (32.0-36.0); RED BLOOD COUNT 2.76 mill/uL (4.20-5.60); RED CELL DISTRI WIDTH 15.7 % (11.5-15.5)
[2022-10-26 06:32] LABS: ALBUMIN 2.5 g/dL (3.2-5.0); ALKALINE PHOSPHATASE 86 u/l (38-126); ANION GAP 9 (6-22 (CALC)); BILIRUBIN, TOTAL 0.2 mg/dL (0.02-1.3); BUN 15 mg/dL (8-23); BUN/CREATININE RATIO 20 (12-20 (CALC)); CARBON DIOXIDE 19 mmol/l (22-30); CHLORIDE 116 mmol/l (95-108); CREATININE 0.8 mg/dL (0.5-1.0); GFR FOR AFR.AMER. > 60 ML/MIN (>=60 (CALC)); GFR OTHER RACES > 60 ML/MIN (>=60 (CALC)); MAGNESIUM 1.5 mg/dL (1.6-2.3); POTASSIUM 4.1 mmol/l (3.5-5.1); SGOT/AST 25 u/l (9-36); SODIUM 139 mmol/l (137-146); TOTAL PROTEIN 4.8 g/dL (6.3-8.2)
--- NOTE | 2022-10-26 07:00 | NUR ---
HAND OFF REPORT RECEIVED
--- NOTE | 2022-10-26 08:00 | NUR ---
PATIENT AWAKE AND ALERT, PATIENT ACTIVATION CALL LIGHT MULTIPLE TIMES PER HOUR FOR UN NEEDED REQUESTS, PATIENT ASKED IF SHE NEEDS ANYTHING ELSE AFTER EACH INTERACTION, PATIENT STATES NO, THEN ACTIVATES CALL LIGHT WITHIN MOMENTS OF LEAVING THE ROOM, NO C/O PAIN OR DISCOMFORT, NO S/S OF DISTRESS NOTED, RESPIRATIONS EVEN AND UNLABORED ON O2@2L BY NC.
[2022-10-26 09:00] VITALS: BP 130/59
--- NOTE | 2022-10-26 10:00 | NUR ---
patient resting quietly, sitting up in bed watching tv, no c/o pain or discomfort, no s/s of distress noted, patient cleaned and changed of blood tinged stool, dark red/tarry, at bedside and witnessed patient bowel movement.
--- NOTE | 2022-10-26 11:45 | NUR ---
PATIENT TAKEN TO RADIOLOGY BY [facility]I FOR PICC LINE INSERTION
--- NOTE | 2022-10-26 13:05 | NUR ---
PATIENT RETURNED FROM RADIOLOGY, ASSISTED WITH BEDPAN, AFTERNOON MEAL REHEATED, PATIENT AWAKE AND ALERT, NO C/O PAIN OR DISCOMFORT, NO S/S OF DISTRESS NOTED.
--- NOTE | 2022-10-26 14:00 | NUR ---
patient oob to bedside recliner, sheets changed
--- NOTE | 2022-10-26 15:41 | NUR ---
patient back to bed.
--- NOTE | 2022-10-26 16:00 | NUR ---
PATIENT STARTED ON BOWEL PREP FOR GI PROCEDURE IN AM, CLEAR LIQUIDS UNTIL MIDNIGHT THEN NPO, AWAKE AND ALERT, NO C/O PAIN OR DISCOMFORT, NO S/S OF DISTRESS NOTED.
[2022-10-26 16:57] VITALS: BP 138/60
[2022-10-26 17:11] LABS: HEMOGLOBIN 7.6 g/dl (12.0-16.0); MEAN CELL VOLUME 93.4 fL CALC (80.0-100.0); MEAN CORPUSCULAR HGB 29.6 pG CALC (26.0-32.0); MEAN CORPUSCULAR HGB CONC 31.7 g/dL CAL (32.0-36.0); RED BLOOD COUNT 2.57 mill/uL (4.20-5.60); RED CELL DISTRI WIDTH 15.6 % (11.5-15.5)
[2022-10-26 18:00] VITALS: BP 153/73
[2022-10-26] MEDS ORDERED: YUPELRI175 MCG/3 (20:53)
--- NOTE | 2022-10-26 21:00 | NUR ---
SPOKE WITH Lynn LOPEZ IN LAB REGARDING UNIT PRBC. UNCLEAR IF UNIT WAS MEANT TO BE TRANSFUSED AT THIS TIME. TREATMENT DOCUMENTED BY DR. COSTA IN MOST RECENT PROGRESS NOTE DICTATES PARAMETER TO TRANSFUSE IF HGB <7 g/L. MOST RECENT HGB IS 7.6 g/L. TYPE AND SCREEN HAS BEEN RENEWED. PT WITH PICC LINE IN PLACE. WILL CONTINUE TO MONITOR FOR GI BLEEDING AND HEMODYNAMICS TO ASSESS NEED TO RECCOMEND CURRENT PLAN OF CARE BE ADJUSTED.
[2022-10-26 21:02] VITALS: BP 119/45
[2022-10-27] VITALS (17 sets, daily range): BP systolic 93–162; BP diastolic 48–99
[2022-10-27 04:34] LABS: HEMATOCRIT 23.1 % (37.0-47.0); HEMOGLOBIN 7.3 g/dl (12.0-16.0); MEAN CELL VOLUME 93.1 fL CALC (80.0-100.0); MEAN CORPUSCULAR HGB 29.4 pG CALC (26.0-32.0); MEAN CORPUSCULAR HGB CONC 31.6 g/dL CAL (32.0-36.0); RED BLOOD COUNT 2.48 mill/uL (4.20-5.60); RED CELL DISTRI WIDTH 15.7 % (11.5-15.5)
[2022-10-27 04:46] LABS: ALBUMIN 2.5 g/dL (3.2-5.0); ALKALINE PHOSPHATASE 83 u/l (38-126); ANION GAP 8 (6-22 (CALC)); BUN 12 mg/dL (8-23); BUN/CREATININE RATIO 18 (12-20 (CALC)); CARBON DIOXIDE 22 mmol/l (22-30); CHLORIDE 114 mmol/l (95-108); CREATININE 0.7 mg/dL (0.5-1.0); GFR FOR AFR.AMER. > 60 ML/MIN (>=60 (CALC)); GFR OTHER RACES > 60 ML/MIN (>=60 (CALC)); POTASSIUM 3.7 mmol/l (3.5-5.1); SGOT/AST 22 u/l (9-36); SODIUM 140 mmol/l (137-146); TOTAL PROTEIN 4.7 g/dL (6.3-8.2)
[2022-10-27 04:47] LABS: BILIRUBIN, TOTAL 0.3 mg/dL (0.02-1.3); MAGNESIUM 2.1 mg/dL (1.6-2.3)
--- NOTE | 2022-10-27 07:34 | NUR ---
PERFROMED BEDSIDE REPORT WITH PROFESSOR OF PUBLIC ADMINISTRATION NURSE. PT NOTED LAYING SUPINE IN BED, RESTING COMFORTABLY AT THIS TIME. PT HAS RT PICC NOTED, ONE UNIT OF RBS TRANSFUSING AT THIS TIME, NO S/S OF DISTRESS OR REACTION. VSS. PT ON 2L O2 NC. LEFT ARM CONTRACTED WITH DSG NOTED DRY AND INTACT. CALL LIGHT WITHIN REACH AND SAFETY PRECAUTIONS IN PLACE.
--- NOTE | 2022-10-27 08:00 | NUR ---
PT STILL RESTING COMFORTABLY AT THIS TIME. RBC'S COMPLETED. NORMAL SALINE INFUSING AT THIS TIME. VSS. CALL LIGHT WITHIN REACH.
--- NOTE | 2022-10-27 09:12 | NUR ---
PT HAD SMALL BM, LOOSE/SEDIMENT, BROWN AND RED COLOR. CLEANED PT UP, NOTED STAGE 2 PRESSURE ULCER ON GLUTUES. CLEANED AND APPLIED MEPILEX PAD OVER. PT SITTING UP SEMI FOWLERS. DENIES ANY PAIN AT THIS TIME. CALL LIGHT WITHIN REACH AND SAFETY PRECAUTIONS IN PLACE.
--- NOTE | 2022-10-27 10:46 | NUR ---
OR CALLED WITH UPDATED PROCEDURE AND FAXED NEW CONSENT. PT RESTING COMFORTABLY IN BED, LAYING SEMI FOWLERS. VSS. CALL LIGHT WITHIN REACH AND SAFETY PRECAUTIONS IN PLACE.
--- NOTE | 2022-10-27 11:54 | NUR ---
OR GIVEN RPEORT ON PT. PT BROUGHT DOWN VIA STR WITH PORTABLE O2 AND NC IN PLACE. VSS.
--- NOTE | 2022-10-27 13:56 | NUR ---
PT WAS BROUGHT UP FROM PACU VIA BED. PT IS A/OX3, DENIES ANY PAIN. PT PLACED BACK ONTO MONITOR. VSS. NASAL CANNULA IN PLACE. EDUCATED PT ON DIET AND PLAN OF CARE. CALL LIGHT WITHIN REACH AND SAFETY PRECAUTIONS IN PLACE.
--- NOTE | 2022-10-27 14:09 | NUR ---
SPOKE WITH PT SON, UPDATED ON DIET AND PLAN OF CARE.
[2022-10-27 14:58] LABS: MEAN CELL VOLUME 89.7 fL CALC (80.0-100.0); MEAN CORPUSCULAR HGB 28.6 pG CALC (26.0-32.0); MEAN CORPUSCULAR HGB CONC 31.9 g/dL CAL (32.0-36.0); RED BLOOD COUNT 3.39 mill/uL (4.20-5.60); RED CELL DISTRI WIDTH 16.6 % (11.5-15.5)
[2022-10-27 15:06] LABS: HEMATOCRIT 30.4 % (37.0-47.0); HEMOGLOBIN 9.7 g/dl (12.0-16.0)
--- NOTE | 2022-10-27 15:12 | NUR ---
PT OFFERED JELLO AND ICE WATER. SITTING UP HIGH FOWLERS IN BED AT THIS TIME. A/OX3, WATCHING TV. VSS. CALL LIGHT WITHIN REACH .
--- NOTE | 2022-10-27 17:42 | NUR ---
PT COMPLAINED OF PAIN ON LEFT SIDE OF BODY, GENERAL ACHES. PAIN MEDICATION ADMINSITERED PER EMAR, DINNER SERVED TO PT. PT REPOSITIONED HIGH FOWELRS TO EAT. CALL LIGHT WITHIN REACH AND SAFETY PRECAUTIONS IN PLACE.
--- NOTE | 2022-10-27 19:22 | NUR ---
CLEANED PT UP, CHANGED SHEETS, AND PLACED NEW PUREWICK. PT HAS LARGE INCONTINENCE EPISODE. APPLIED MED HONEY TO WOUND ON BACKSIDE AND PLACE MEPALEX PAD. PT REPOSITIONED SITTING UP FOWLERS. CLEANED AND REDRESSED BOTH SKIN TEARS NOTED ON LEFT ARM. OFFERED PT FLUIDS. VSS. CALL LIGHT WITHIN REACH AND SAFETY PRECAUTIONS IN PLACE.
--- NOTE | 2022-10-27 21:00 | NUR ---
BEDSIDE REPORT RECEIVED FROM Clarissa ARIAS RN, CARE OF PT ASSUMED AT THIS TIME.
--- NOTE | 2022-10-27 22:00 | NUR ---
ASSISTED ON AND OFF BEDPAN, 300 ML CLEAR YELLOW URINE EMPTIED. PUREWICK PUT IN PLACE PER PT'S REQUEST.
[2022-10-28] VITALS (22 sets, daily range): BP systolic 72–163; BP diastolic 44–127
--- NOTE | 2022-10-28 | NUR ---
PT APPEARS TO BE SLEEPING COMFORTABLY. RESPIRATIONS REGULAR AND UNLABORED. SR ON MONITOR. CALL MARTINEZ REMAINS WITHIN REACH.
--- NOTE | 2022-10-28 02:00 | NUR ---
PT LYING IN BED, ASKS ABOUT BREAKFAST, ASSURED PT BREAKFAST HAS BEEN ORDERED AND WILL BE DELIVERED THIS MORNING SCHEDULED. DENIES FURTHER NEEDS, CALL MICHELLE LALA, AGREES TO CALL PRN.
--- NOTE | 2022-10-28 04:00 | NUR ---
950ML EMPTIED FROM PUREWICK, PUREWICK REPLACED WITH NEW ONE. LINENS CHANGED.
--- NOTE | 2022-10-28 05:00 | NUR ---
LABS COLLECTED VIA R-PICC, BOTH PORTS FLUSH EASIL WITH GOOD BLOOD RETURN.
[2022-10-28 05:56] LABS: ALBUMIN 2.6 g/dL (3.2-5.0); ALKALINE PHOSPHATASE 78 u/l (38-126); ANION GAP 9 (6-22 (CALC)); BUN 6 mg/dL (8-23); BUN/CREATININE RATIO 10 (12-20 (CALC)); CARBON DIOXIDE 22 mmol/l (22-30); CHLORIDE 112 mmol/l (95-108); CREATININE 0.6 mg/dL (0.5-1.0); GFR FOR AFR.AMER. > 60 ML/MIN (>=60 (CALC)); GFR OTHER RACES > 60 ML/MIN (>=60 (CALC)); MAGNESIUM 1.6 mg/dL (1.6-2.3); SGOT/AST 24 u/l (9-36); SODIUM 139 mmol/l (137-146); TOTAL PROTEIN 5.2 g/dL (6.3-8.2)
[2022-10-28 05:58] LABS: HEMATOCRIT 28.2 % (37.0-47.0); MEAN CELL VOLUME 89.5 fL CALC (80.0-100.0); MEAN CORPUSCULAR HGB 28.6 pG CALC (26.0-32.0); MEAN CORPUSCULAR HGB CONC 31.9 g/dL CAL (32.0-36.0); RED BLOOD COUNT 3.15 mill/uL (4.20-5.60); RED CELL DISTRI WIDTH 17.2 % (11.5-15.5)
[2022-10-28 06:06] LABS: BILIRUBIN, TOTAL 0.5 mg/dL (0.02-1.3)
--- NOTE | 2022-10-28 07:30 | NUR ---
REPORT ENDORSED TO Clarissa ARIAS RN. CARE OF PT SURRENDERED AT THIS TIME.
--- NOTE | 2022-10-28 08:00 | NUR ---
PT MOVED FROM CHAIR TO BED AFTER LINENS CHANGED. REPORT RECIEVED FROM NIGHT RN. NO CHANGES TO PT STATUS OVERNIGHT. PT HAS NOT HAD ANY MORE TARRY STOOLS. PT IS A/O. LUNGS CLEAR; PT ON 3L NC. NO COUGH. HEART RHYTHM REGULAR; PT IS NSR. BOWEL SOUNDS ACTIVE. PT DENIES ABDOMINAL TENDERNESS. PULSES STRONG UPPER EXTREMETIES. PT IS DBL ABOVE KNEE AMPUTEE. PT DENIES ANY NEEDS AT THIS TIME. CALL LIGHT IN REACH. VSS.
--- NOTE | 2022-10-28 10:00 | NUR ---
PT REPOSITIONED IN BED. PT GIVEN PHONE TO CALL HER SON. CALL LIGHT IN REACH. VSS.
--- NOTE | 2022-10-28 12:00 | NUR ---
PT LYING IN BED ASLEEP. CALL LIGHT IN HER HAND. VSS.
--- NOTE | 2022-10-28 13:37 | NUR ---
PT PLACED ON BEDPAN. PT FOUND TO HAVE VOIDED IN BRIEF. LINENS CHANGED. INCONTINENT CARE PROVIDED. CALL LIGHT IN REACH. VSS.
[2022-10-28 14:44] LABS: HEMATOCRIT 29.1 % (37.0-47.0); HEMOGLOBIN 9.3 g/dl (12.0-16.0); MEAN CELL VOLUME 90.1 fL CALC (80.0-100.0); MEAN CORPUSCULAR HGB 28.8 pG CALC (26.0-32.0); RED BLOOD COUNT 3.23 mill/uL (4.20-5.60)
--- NOTE | 2022-10-28 16:06 | NUR ---
PT LYING IN BED WATCHING TV. PT REPOSITIONED AFTER USING BEDPAN. CALL LIGHT IN REACH. VSS.
--- NOTE | 2022-10-28 18:00 | NUR ---
PT ADJUSTED IN BED. PT HELPED WITH DINNER TRAY. PT DENIED ANY NEEDS AT THIS TIME. CALL LIGHT IN REACH. VSS.
--- NOTE | 2022-10-28 19:30 | NUR ---
awake. denies distress. playground monitor shows sinus rhythm. picc line in place kranthi. ivf infusing well. voids per bedpan. fall precautions cont. has MANY needs & requires MUCH encouragement to assist with care. pt requested kleenex & water glass be handed to her. request denied. instructed pt she could reach both from table.
--- NOTE | 2022-10-28 20:00 | NUR ---
george 5mg po per request for stump pain.
--- NOTE | 2022-10-28 21:00 | NUR ---
eyes closed. no distress.
[2022-10-29] VITALS (18 sets, daily range): BP systolic 48–139; BP diastolic 31–84
--- NOTE | 2022-10-29 00:01 | NUR ---
regeneration operator shows sinus rhythm.
--- NOTE | 2022-10-29 02:20 | NUR ---
awake. c/o sob. instructed pt to keep o2 in nose & not on forehead. o2 readjusted.
--- NOTE | 2022-10-29 02:40 | NUR ---
george 5mg po per request for pain.
--- NOTE | 2022-10-29 03:30 | NUR ---
blood drawn & sent to lab.
[2022-10-29 05:56] LABS: HEMATOCRIT 27.9 % (37.0-47.0); HEMOGLOBIN 8.9 g/dl (12.0-16.0); MEAN CELL VOLUME 91.8 fL CALC (80.0-100.0); MEAN CORPUSCULAR HGB 29.3 pG CALC (26.0-32.0); MEAN CORPUSCULAR HGB CONC 31.9 g/dL CAL (32.0-36.0); RED BLOOD COUNT 3.04 mill/uL (4.20-5.60)
--- NOTE | 2022-10-29 07:30 | NUR ---
REPORT RECIEVED FROM NIGHT RN. PT IS LYING IN BED WITH TV ON. PT IS A/O. LUNG SOUNDS EXPIRATORY WHEEZE. PT IS ON 2L NC. NO COUGH. HEART RHYTHM REGULAR; PT IS NSR. BOWEL SOUNDS ACTIVE. SKIN W/D. PT HAS SORE ON BOTTOM AND SKIN TEAR LEFT ARM THAT IS BANDAGED. AFEBRILE. CALL LIGHT IN REACH. VSS.
--- NOTE | 2022-10-29 08:52 | NUR ---
DR. CORTEZ AT BEDSIDE TO SPEAK WITH PT.
[2022-10-29] MEDS ORDERED: PROTONIX40 M2 PO (10:32)
--- NOTE | 2022-10-29 12:00 | NUR ---
PT REPOSITIONED TO EAT LUNCH. CALL LIGHT IN REACH. VSS.
--- NOTE | 2022-10-29 14:00 | NUR ---
PT'S DAUGHTER AT BEDSIDE TO TAKE PT HOME. PT CLEANED AND BANDAGES CHANGED. PT GIVEN DISCHARGE EDUCATION AND ALL QUESTIONS ANSWERED. PICC LINE PULLED, TIP INTACT. ALL PT BELONGINGS GATHERED AND SENT HOME WITH PT INCLUDING HER OWN OXYGEN TANK. PT BROUGHT TO ER ENTRANCE AND PLACED IN VEHICLE BY NURSING STAFF. PT IN GOOD CONDITION UPON DISCHARGE.
== END 2022-10-29 14:10 | disposition home or self-care (01) | DRG 378 ==
LOC: ED 21:18 → ED-I 10-24 → ED 10-24 00:17 → ICU 10-24 00:18
PROVIDERS: Family Medicine; Student in an Organized Health Care Education/Training Program; ADMIT Student in an Organized Health Care Education/Training Program; ATTEND Student in an Organized Health Care Education/Training Program
PROC: 30233N1 Transfusion of Nonautologous Red Blood Cells into Peripheral Vein, Percutaneous Approach (ICD-10-PCS; principal; 2022-10-23)
PROC: 30233N1 Transfusion of Nonautologous Red Blood Cells into Peripheral Vein, Percutaneous Approach (ICD-10-PCS; 2022-10-24)
PROC: 02HV33Z Insertion of Infusion Device into Superior Vena Cava, Percutaneous Approach (ICD-10-PCS; 2022-10-26)
PROC: B518ZZA Fluoroscopy of Superior Vena Cava, Guidance (ICD-10-PCS; 2022-10-26)
PROC: 0DJD8ZZ Inspection of Lower Intestinal Tract, Via Natural or Artificial Opening Endoscopic (ICD-10-PCS; 2022-10-27)
PROC: 0DJ08ZZ Inspection of Upper Intestinal Tract, Via Natural or Artificial Opening Endoscopic (ICD-10-PCS; 2022-10-27)
PROC: 30243N1 Transfusion of Nonautologous Red Blood Cells into Central Vein, Percutaneous Approach (ICD-10-PCS; 2022-10-27)
DX: K57.31 Diverticulosis of large intestine without perforation or abscess with bleeding (principal); D62 Acute posthemorrhagic anemia; I69.954 Hemiplegia and hemiparesis following unspecified cerebrovascular disease affecting left non-dominant side; I10 Essential (primary) hypertension; J44.9 Chronic obstructive pulmonary disease, unspecified; I73.9 Peripheral vascular disease, unspecified; F41.9 Anxiety disorder, unspecified; H54.61 Unqualified visual loss, right eye, normal vision left eye; K44.9 Diaphragmatic hernia without obstruction or gangrene; K21.9 Gastro-esophageal reflux disease without esophagitis; D72.828 Other elevated white blood cell count; Q40.2 Other specified congenital malformations of stomach; K64.8 Other hemorrhoids; F32.A Depression, unspecified; Z99.81 Dependence on supplemental oxygen; Z87.440 Personal history of urinary (tract) infections; Z95.820 Peripheral vascular angioplasty status with implants and grafts; Z89.611 Acquired absence of right leg above knee; Z89.612 Acquired absence of left leg above knee; Z20.822 Contact with and (suspected) exposure to COVID-19
CPT/HCPCS: J3475; P9016; S0164

== ENCOUNTER 2022-11-13 22:22 | Emergency (ER) | payer MEDICARE, MEDICAID ==
[~2022-11-13] VITALS: Ht 152.4 cm; Wt 27.0 kg
[~2022-11-13 22:22] MED LIST changes: +YUPELRI175 MCG/3
[2022-11-13 22:28] VITALS: BP 113/54
[2022-11-13 22:39] VITALS: BP 136/46
[2022-11-13 23:00] VITALS: BP 119/40
[2022-11-13 23:10] LABS: HEMATOCRIT 33.2 % (37.0-47.0); HEMOGLOBIN 10.3 g/dl (12.0-16.0); IMMATURE GRANULOCYTES 0.3 % (0.0-5.0); LYMPH% 11.9 % (15-41); MEAN CELL VOLUME 92.2 fL CALC (80.0-100.0); MEAN CORPUSCULAR HGB 28.6 pG CALC (26.0-32.0); NEUT# 10.67 thou/uL (2.00-7.15); NEUT% 73.8 % (42-76); RED BLOOD COUNT 3.6 mill/uL (4.20-5.60); RED CELL DISTRI WIDTH 14.8 % (11.5-15.5)
[2022-11-13 23:21] LABS: AMYLASE 96 u/l (30-110); ANION GAP 12 (6-22 (CALC)); BILIRUBIN, TOTAL 0.3 mg/dL (0.02-1.3); BUN 19 mg/dL (8-23); BUN/CREATININE RATIO 24 (12-20 (CALC)); CARBON DIOXIDE 25 mmol/l (22-30); CHLORIDE 104 mmol/l (95-108); CREATININE 0.8 mg/dL (0.5-1.0); GFR FOR AFR.AMER. > 60 ML/MIN (>=60 (CALC)); GFR OTHER RACES > 60 ML/MIN (>=60 (CALC)); LIPASE 62 u/l (23-300); POTASSIUM 4.2 mmol/l (3.5-5.1); SGOT/AST 28 u/l (9-36); SODIUM 137 mmol/l (137-146)
[2022-11-13 23:23] LABS: ALBUMIN 3.8 g/dL (3.2-5.0); ALKALINE PHOSPHATASE 126 u/l (38-126); TOTAL PROTEIN 6.9 g/dL (6.3-8.2)
[2022-11-13 23:30] VITALS: BP 108/43
[2022-11-13] MEDS ORDERED: MEDDOSEPAK PO (23:59)
[2022-11-13] MEDS ORDERED: ZITHROMAX Z-PA250 MG PO (23:59)
[2022-11-14 00:01] VITALS: BP 78/31
[2022-11-14 05:00] VITALS: BP 112/78
== END 2022-11-14 05:00 | disposition home or self-care (01) ==
LOC: ED 22:22
PROVIDERS: Emergency Medicine
DX: J44.1 Chronic obstructive pulmonary disease with (acute) exacerbation (principal); I10 Essential (primary) hypertension; I73.9 Peripheral vascular disease, unspecified; K21.9 Gastro-esophageal reflux disease without esophagitis; F41.9 Anxiety disorder, unspecified; F32.A Depression, unspecified; R63.6 Underweight; H54.61 Unqualified visual loss, right eye, normal vision left eye; Z86.73 Personal history of transient ischemic attack (TIA), and cerebral infarction without residual deficits; Z99.81 Dependence on supplemental oxygen; Z85.41 Personal history of malignant neoplasm of cervix uteri; Z89.611 Acquired absence of right leg above knee; Z87.440 Personal history of urinary (tract) infections; Z20.822 Contact with and (suspected) exposure to COVID-19

== ENCOUNTER 2022-12-05 17:05 | Emergency (ER) | payer MEDICARE, MEDICAID ==
[2022-12-05] VITALS (8 sets, daily range): BP systolic 90–116; BP diastolic 45–59
[~2022-12-05] VITALS: Ht 152.4 cm; Wt 44.0 kg
[~2022-12-05 17:05] MED LIST changes: +ZITHROMAX Z-PA250 MG PO
[2022-12-05 17:57] LABS: BASO% 0.8 % (0-3); EOS% 10.1 % (0-8); HEMATOCRIT 31.2 % (37.0-47.0); HEMOGLOBIN 9.5 g/dl (12.0-16.0); IMMATURE GRANULOCYTES 0.2 % (0.0-5.0); LYMPH% 18.8 % (15-41); MEAN CELL VOLUME 91.8 fL CALC (80.0-100.0); MEAN CORPUSCULAR HGB 27.9 pG CALC (26.0-32.0); MEAN CORPUSCULAR HGB CONC 30.4 g/dL CAL (32.0-36.0); MONO% 4.6 % (2-13); NEUT# 6.59 thou/uL (2.00-7.15); NEUT% 65.5 % (42-76); RED BLOOD COUNT 3.4 mill/uL (4.20-5.60); RED CELL DISTRI WIDTH 14.6 % (11.5-15.5)
[2022-12-05 18:11] LABS: ALBUMIN 3.7 g/dL (3.2-5.0); ALKALINE PHOSPHATASE 107 u/l (38-126); ANION GAP 13 (6-22 (CALC)); BILIRUBIN, TOTAL 0.2 mg/dL (0.02-1.3); BUN 16 mg/dL (8-23); BUN/CREATININE RATIO 24 (12-20 (CALC)); CARBON DIOXIDE 27 mmol/l (22-30); CHLORIDE 103 mmol/l (95-108); CREATININE 0.7 mg/dL (0.5-1.0); GFR FOR AFR.AMER. > 60 ML/MIN (>=60 (CALC)); GFR OTHER RACES > 60 ML/MIN (>=60 (CALC)); POTASSIUM 3.6 mmol/l (3.5-5.1); SGOT/AST 29 u/l (9-36); SODIUM 139 mmol/l (137-146); TOTAL PROTEIN 6.9 g/dL (6.3-8.2)
== END 2022-12-05 19:03 | disposition home or self-care (01) ==
LOC: ED 17:05
PROVIDERS: Family Medicine
DX: M79.605 Pain in left leg (principal); I10 Essential (primary) hypertension; R63.6 Underweight; I73.9 Peripheral vascular disease, unspecified; J44.9 Chronic obstructive pulmonary disease, unspecified; F32.A Depression, unspecified; H54.61 Unqualified visual loss, right eye, normal vision left eye; Z89.612 Acquired absence of left leg above knee; Z89.611 Acquired absence of right leg above knee; Z99.81 Dependence on supplemental oxygen; Z87.440 Personal history of urinary (tract) infections; Z85.038 Personal history of other malignant neoplasm of large intestine; Z86.73 Personal history of transient ischemic attack (TIA), and cerebral infarction without residual deficits

== ENCOUNTER 2023-04-13 13:20 | Observation (INO) | payer MEDICARE, MEDICAID ==
[~2023-04-13] VITALS: Ht 152.4 cm; Wt 41.1 kg
[2023-04-13] VITALS (23 sets, daily range): BP systolic 82–117; BP diastolic 34–50
[2023-04-13] MEDS ORDERED: IPRATROPIUM-Albuterol 0.5MG-2.5MG/3 ML NEB ONE (13:45)
[2023-04-13] MEDS ORDERED: methylPREDNISolone SODIUM SUCC 125 MG/2 ML SDV IV ONE (13:45)
[2023-04-13 14:13] LABS: BASO% 0.6 % (0-3); HEMOGLOBIN 11.2 g/dl (12.0-16.0); IMMATURE GRANULOCYTES 0.6 % (0.0-5.0); LYMPH% 11.6 % (15-41); MEAN CELL VOLUME 93.9 fL CALC (80.0-100.0); MEAN CORPUSCULAR HGB 28.4 pG CALC (26.0-32.0); MEAN CORPUSCULAR HGB CONC 30.3 g/dL CAL (32.0-36.0); MONO% 4.8 % (2-13); NEUT# 9.88 thou/uL (2.00-7.15); NEUT% 72.4 % (42-76); RED BLOOD COUNT 3.94 mill/uL (4.20-5.60); RED CELL DISTRI WIDTH 14.9 % (11.5-15.5)
--- NOTE | 2023-04-13 14:15 | NUR ---
report received from TESS Mayer.
--- NOTE | 2023-04-13 14:29 | NUR ---
Patient placed on monitor. She is A&O x3 with audible wheezes. Daughter at bedside.
[2023-04-13 14:37] LABS: ALBUMIN 3.9 g/dL (3.2-5.0); ALKALINE PHOSPHATASE 143 u/l (38-126); ANION GAP 14 (6-22 (CALC)); BILIRUBIN, TOTAL 0.4 mg/dL (0.02-1.3); BUN 16 mg/dL (8-23); BUN/CREATININE RATIO 21 (12-20 (CALC)); CALCULATED LDLCHOLESTEROL 168 mg/dL (62-129 (CALC)); CARBON DIOXIDE 22 mmol/l (22-30); CHLORIDE 111 mmol/l (95-108); CHOLESTEROL HDL RATIO 4.9 (<4.4 (CALC)); CREATININE 0.8 mg/dL (0.5-1.0); GFR FOR AFR.AMER. > 60 ML/MIN (>=60 (CALC)); GFR OTHER RACES > 60 ML/MIN (>=60 (CALC)); HDL CHOLESTEROL 54 mg/dL (39.0-59.0); POTASSIUM 4.6 mmol/l (3.5-5.1); SGOT/AST 30 u/l (9-36); SODIUM 142 mmol/l (137-146); TOTAL CHOLESTEROL 263 mg/dl (0-199); TOTAL PROTEIN 6.9 g/dL (6.3-8.2); TOTAL TRIGLYCERIDES 204 mg/dl (0-149); VLDL CHOLESTROL 41 mg/dl (0-48 (CALC))
[2023-04-13 14:38] LABS: PROTHROMBIN TIME 9.8 SECONDS (9.0-12.5)
[2023-04-13] MEDS ORDERED: ASPIRIN 81 MG/TAB PO ONE (15:25)
--- NOTE | 2023-04-13 15:30 | NUR ---
pt in room, daughter bedside, no apparent distress
[2023-04-13 16:10] LABS: URINE BILIRUBIN - DIPSTICK Negative (NEGATIVE); URINE BLOOD DIPSTICK Moderate (NEGATIVE); URINE COLOR Yellow; URINE GLUCOSE - DIPSTICK Negative (NEGATIVE); URINE KETONE Negative (NEGATIVE); URINE LEUK ESTERASE Trace (NEGATIVE); URINE NITRITE - DIPSTICK Negative (Negative); URINE PH 5.5 (4.5-8.0); URINE PROTEIN - DIPSTICK Negative (NEG-TRACE); URINE SPECIFIC GRAVITY 1.015; URINE UROBILINOGEN - DIPSTICK 0.2 E.U./dL (0.2)
[2023-04-13 16:15] LABS: URINE WBC 0-2 WBC/hpf (0-5)
[2023-04-13] MEDS ORDERED: AZITHROMYCIN 500 MG in SODIUM CHLORIDE 0.9% 250 ML IV ONE (16:25)
--- NOTE | 2023-04-13 16:30 | NUR ---
pt in room, daughter home, pt on monitor, appears to be resting comfortably.
[2023-04-13] MEDS ORDERED: DEXTROSE 250 ML IV PRN (17:05)
--- NOTE | 2023-04-13 17:30 | NUR ---
pt appears to be resting comfortably, no apparent distress, vitals stable
--- NOTE | 2023-04-13 18:30 | NUR ---
pt appears to be resting comfortably, no apparent distress.
[2023-04-13] MEDS ORDERED: IPRATROPIUM-Albuterol 0.5MG-2.5MG/3 ML NEB SCH (19:00)
--- NOTE | 2023-04-13 19:05 | NUR ---
REPORT RECEIVED FROM Suhail ALMANZA RN
--- NOTE | 2023-04-13 20:00 | NUR ---
ATTEMPT MADE TO COMPLETE MED REC WITH PATIENT. PATIENT STATES SHE DOES KNOW HER MEDICATIONS.
[2023-04-13] MEDS ORDERED: ATORVASTATIN CALCIUM 40 MG/TAB PO SCH (21:00)
[2023-04-13] MEDS ORDERED: MIRTAZAPINE 15 MG/TAB PO SCH (21:00)
[2023-04-13] MEDS ORDERED: methylPREDNISolone Sod Succ 40 MG/ML SDV IV SCH (21:00)
--- NOTE | 2023-04-13 21:35 | NUR ---
REPORT CALLED TO Dallas MARCH RN.
[2023-04-13] MEDS ORDERED: SODIUM CHLORIDE 0.9% 1,000 ML IV PRN (21:55)
--- NOTE | 2023-04-13 22:22 | NUR ---
PATIENT TO ROOM 280 VIA STRETCHER, CARE HANDED OVER TO Dallas MARCH RN.
[2023-04-14] VITALS (7 sets, daily range): BP systolic 76–105; BP diastolic 29–42
--- NOTE | 2023-04-14 | NUR ---
PATIENT ADMITTED FROM ER VIA STRETCHER WITH ER STAFF IN ATTENDANCE-PATIENT IS MAX TRANSFER FROM STRETCHER TO THE BED. AWAKE ALERT AND ORIENTEDX3. PATIENT IS EMANUEL AKA AND HAS HX OF CVA IN THE PAST. PATIENT WITH LEFT SIDE WEAKNESS. LEFT SIDE FACIAL DROOP. LEFT ARM AND HAND ARE CONTRACTED-NO NEW SX OF CVA AT THIS TIME PER PATIENT. PATIENT STATES THAT SHE CAME TO THE HOSPITAL BECAUSE OF SOB. PATIENT WITH O2 VIA NASAL CANNULA IN PLACE AT 2LPM. PATIENT STATES THAT SHE DOES HAVE HOME O2. STATES THAT SHE LIVES WITH HER SON AND IS BED/OR WHEELCHAIR BOUND. PATIENT WITH IV SITE TO LEFT HAND-SITE IS HEALTHY AT THIS TIME-IVF NS HUNG AND INFUSING AT 100CC/HR. 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 TELE MONTIOR IN PLACE WITH READING SR-90'S. PATIENT WITH LOOSE COUGH AND BRINGING U[P CLEAR TO WHITE SPUTUM. LUNGS ARE DIMINISHED. ORIENTED TO ROOM AND SURROUNDINGS. INSTRUCTED ON USE OF NURSE CALL LIGHT SYSTEM. PROVIDED DINNER TRAY FOR PATIENT-ASSISTED WITH MEAL. APPETITE IS FAIR. PATIENT TAKING PO FLUIDS WITHOUT ANY DIFFICULTY. CALL LIGHT IN REACH. WILL CONT TO MONITOR.
--- NOTE | 2023-04-14 01:47 | NUR ---
AYUSH LIFT PAD IS SOILED AND CAN NOT BE USED. PT IS UABLE TO STAND FOR DIGITAL STANDING SCALE. WEIGHED PATIENT BY BED. NOTIFIED TESS CASTLE.
--- NOTE | 2023-04-14 04:30 | NUR ---
PATIENT RESTING IN BED AT THIS TIME-HOB SLIGHTLY ELEVATED. EYES ARE CLOSED AND RESPS ARE EVEN AND UNLABORED AT THIS TIME. O2 VIA NASAL CANNULA IN PLACE AT THIS TIME AT 2LPM. IVF PATENT AND INFUSING VIA RIGHT HAND SITE AT 100CC/HR. PUREWICK IN PLACE FOR URINE INCONT. TELE MONITOR IN PLACE-SR-85. CALL LIGHT IN REACH. WILL CONT TO MONITOR.
[2023-04-14 07:09] LABS: BASO% 0.5 % (0-3); HEMATOCRIT 31.3 % (37.0-47.0); IMMATURE GRANULOCYTES 0.7 % (0.0-5.0); LYMPH% 9.7 % (15-41); MEAN CELL VOLUME 98.4 fL CALC (80.0-100.0); MEAN CORPUSCULAR HGB 28.6 pG CALC (26.0-32.0); MEAN CORPUSCULAR HGB CONC 29.1 g/dL CAL (32.0-36.0); NEUT# 10.33 thou/uL (2.00-7.15); NEUT% 88.1 % (42-76); RED BLOOD COUNT 3.18 mill/uL (4.20-5.60)
[2023-04-14 07:22] LABS: HEMOGLOBIN 9.1 g/dl (12.0-16.0)
--- NOTE | 2023-04-14 07:28 | NUR ---
PT RESTING IN LOW FOWLERS POSITION PT A/O RESPIRATIONS ON 2LNC TELE NOTED IV SITE NOTED. PT HX OF STROKE. BILATERAL AKA. NOTED. RT IN ROOM NOW. PT DENIES ADDITIONAL NEEDS AT THE TIME ALL SAFETY PRECAUTIONS IN PLACE WITH CALL LIGHT IN REACH.
[2023-04-14 07:56] LABS: ALBUMIN 3.2 g/dL (3.2-5.0); ALKALINE PHOSPHATASE 109 u/l (38-126); ANION GAP 10 (6-22 (CALC)); BILIRUBIN, TOTAL 0.3 mg/dL (0.02-1.3); BUN 19 mg/dL (8-23); BUN/CREATININE RATIO 28 (12-20 (CALC)); CARBON DIOXIDE 21 mmol/l (22-30); CHLORIDE 110 mmol/l (95-108); CREATININE 0.7 mg/dL (0.5-1.0); GFR FOR AFR.AMER. > 60 ML/MIN (>=60 (CALC)); GFR OTHER RACES > 60 ML/MIN (>=60 (CALC)); POTASSIUM 4.5 mmol/l (3.5-5.1); SGOT/AST 43 u/l (9-36); SODIUM 137 mmol/l (137-146)
[2023-04-14] MEDS ORDERED: CLOPIDOGREL BISULFATE 75 MG/TAB TAB PO SCH (09:00)
[2023-04-14] MEDS ORDERED: ASPIRIN 81 MG/TAB PO SCH (09:00)
[2023-04-14] MEDS ORDERED: SERTRALINE HCL 50 MG/TAB PO SCH (09:00)
[2023-04-14] MEDS ORDERED: GABAPENTIN 100 MG/CAP PO SCH (09:00)
--- NOTE | 2023-04-14 10:57 | NUR ---
MRI SCREENING COMPLETED BY PT AND CALLED SON FOR VERIFICATION .
--- NOTE | 2023-04-14 12:23 | NUR ---
PT ABLE TO MAKE NEEDS KNOWN . PT DENIES ADDITIONAL NEEDS AT THE TIME OTHER THAN SUGAR FOR TEA. ALL SAFETY PRECAUTIONS IN PLACE WITH CALL LIGHT IN REACH.
[2023-04-14] MEDS ORDERED: MIRTAZAPINE30 M2 PO (12:55)
[2023-04-14] MEDS ORDERED: MEDDOSEPAK PO (13:03)
--- NOTE | 2023-04-14 13:43 | NUR ---
PT TO BE DC FAMILY AWARE. FAMILY STATED DID NOT BRING HOME OXYGEN AND STATED WILL NOT DRIVE BACK . FAMILY STATED WILL DRIVE FOR ONLY 10 MIN. PT TAKEN OFF OXYGEN TO VERIFRY PT WILL SATURATION WILL NOT FALL OUT OF RANGE WHILE OFF.DEISI PULIDO AWARE.
--- NOTE | 2023-04-14 13:58 | NUR ---
PT [id number] -94% ON ROOM AIR. PT DENIES ANY DIFFICLUTLY BREATHING OR ANY SOB. PT TO BE DC
--- NOTE | 2023-04-14 14:11 | NUR ---
Discharge instructions given. Patient verbalizes understanding of same. Discharged in stable condition via Wheelchair to Home with staff. All belongings sent with pt. IV REMOVED TELE REMOVED PT DID NOT FALL BELOW 93 WHILE OFF OXYGEN OF 2LNC.
[2023-04-14] MEDS ORDERED: AZITHROMYCIN 500 MG in SODIUM CHLORIDE 0.9% 250 ML IV SCH (16:00)
== END 2023-04-14 14:08 ==
LOC: ED 13:20 → ED-I 13:46 → ED 13:46 → ED-I 15:30 → ED 16:27 → MS2 16:27
PROVIDERS: Nurse Practitioner; ADMIT Student in an Organized Health Care Education/Training Program; ATTEND Student in an Organized Health Care Education/Training Program
DX: J44.1 Chronic obstructive pulmonary disease with (acute) exacerbation (principal); J96.11 Chronic respiratory failure with hypoxia; I12.9 Hypertensive chronic kidney disease with stage 1 through stage 4 chronic kidney disease, or unspecified chronic kidney disease; N18.9 Chronic kidney disease, unspecified; I69.334 Monoplegia of upper limb following cerebral infarction affecting left non-dominant side; I69.392 Facial weakness following cerebral infarction; I25.10 Atherosclerotic heart disease of native coronary artery without angina pectoris; I73.9 Peripheral vascular disease, unspecified; F41.9 Anxiety disorder, unspecified; F32.A Depression, unspecified; H54.61 Unqualified visual loss, right eye, normal vision left eye; H40.9 Unspecified glaucoma; R63.6 Underweight; Z68.1 Body mass index [BMI] 19.9 or less, adult; Z89.611 Acquired absence of right leg above knee; Z99.81 Dependence on supplemental oxygen; Z87.440 Personal history of urinary (tract) infections; Z20.822 Contact with and (suspected) exposure to COVID-19; K21.9 Gastro-esophageal reflux disease without esophagitis; Z95.820 Peripheral vascular angioplasty status with implants and grafts; Z89.612 Acquired absence of left leg above knee